=== PATIENT | male | born 1935 | race Caucasian/White ===

== ENCOUNTER 2016-10-07 20:49 | Inpatient (IN) | payer MEDICARE, OTHER ==
--- NOTE | 2016-10-07 21:23 | EDM.PDOC ---
ED HPI GENERAL MEDICAL PROBLEM - General Chief Complaint: General Stated Complaint: CARROLL FEEL SICK [id number] Time Seen by Provider: 10/07/16 21:19 Source of Information: Reports: Patient, Family History Limitations: Reports: No limitations - History of Present Illness INITIAL COMMENTS - FREE TEXT/NARRATIVE: 81 yo white male c/o weakness and coughing blood for last 2-3 months. Also, decreased appetite for 2 weeks and weight loss of approx. 25 pounds since June 2016. Pt. seen by his PCP and had Chest CT on 09/29/2016 -abnormal ( Multilobar infiltrates) and pt. to f/u with Pulmonary Onset: gradual Onset Date: 07/03/16 Onset Time: 12:00 Duration: Week(s):, Getting worse Location: Reports: generalized Severity: moderate Worsens with: Reports: Movement Associated Symptoms: Reports: cough (with blood loss) - Related Data Allergies Allergy/AdvReac Type Severity Reaction Status Date / Time No Known Allergies Allergy Verified 10/07/16 21:19 Home Meds: Home Meds Apixaban [Eliquis] 5 mg PO BID 07/01/16 [History] Aspirin [Halfprin] 81 mg PO BRK 07/01/16 [History] Metoprolol Tartrate [Lopressor] 25 mg PO Q12HR 07/01/16 [History] Multivitamins [Tab-A-Alex] 1 tab PO DAILY 07/01/16 [History] Past Medical History HEENT History: Reports: Cataract Cardiovascular History: Reports: Afib Respiratory History: Reports: None Gastrointestinal History: Reports: Bowel obstruction Genitourinary History: Reports: Renal calculus Musculoskeletal History: Reports: Osteoarthritis Other Musculoskeletal History: right knee - Infectious Disease History Infectious Disease History: Reports: Measles - Past Surgical History HEENT Surgical History: Reports: Cataract surgery Other HEENT Surgeries/Procedures: both eyes Cardiovascular Surgical History: Reports: None Respiratory Surgical History: Reports: None GI Surgical History: Reports: Appendectomy Other GI Surgeries/Procedures: when was a child Male Surgical History: Reports: None Musculoskeletal Surgical History: Reports: Amputation, Other (see below) Other Musculoskeletal Surgeries/Procedures:: right little toe, osteomyelittis Social & Family History - Family History Family Medical History: Noncontributory - Tobacco Use Smoking Status *Q: Former Smoker Years of Tobacco use: 30 Packs/Tins Daily: 1 Used Tobacco, but Quit: Yes Month Tobacco Last Used: August Second Hand Smoke Exposure: No - Caffeine Use Caffeine Use: Reports: Coffee - Recreational Drug Use Recreational Drug Use: No ED ROS GENERAL - Review of Systems Review Of Systems: See Below Constitutional: Reports: weakness, decreased appetite, weight loss (25 pounds since June 2016) HEENT: Reports: No symptoms Respiratory: Reports: Cough, Hemoptysis Cardiovascular: Reports: No symptoms Endocrine: Reports: no symptoms GI/Abdominal: Reports: No symptoms : Reports: no symptoms Musculoskeletal: Reports: no symptoms Skin: Reports: no symptoms Neurological: Reports: No Symptoms Psychiatric: Reports: No symptoms Hematologic/Lymphatic: Reports: no symptoms Immunologic: Reports: no symptoms ED EXAM, GENERAL - Physical Exam Exam: See Below Exam Limited By: No limitations General Appearance: alert, no apparent distress Eye Exam: bilateral eye: PERRL Ears: normal external exam Nose: normal inspection Throat/Mouth: Normal inspection Head: atraumatic Neck: normal inspection Respiratory/Chest: no respiratory distress, lungs clear, normal breath sounds Cardiovascular: normal peripheral pulses, regular rate, rhythm, no edema Peripheral Pulses: 2+: femoral (L), femoral (R) GI/Abdominal: normal bowel sounds, soft, non tender, no organomegaly (Male) Exam: No hernia Back Exam: normal inspection, full range of motion Extremities: normal inspection, normal range of motion Neurological: alert, oriented, CN II-XII intact, normal cognition Psychiatric: normal affect Skin Exam: Warm, Dry, Intact Lymphatic: no adenopathy Course - Vital Signs Last Recorded V/S: Last Vital Signs Temp 36.9 C 10/07/16 21:19 Pulse 30 L 10/07/16 21:19 Resp 18 10/07/16 21:19 BP 82/46 L 10/07/16 21:19 Pulse Ox 94 L 10/07/16 21:19 - Orders/Labs/Meds Orders: Active Orders 24 hr Category Date Time Status UA W/MICROSCOPIC [URIN] Stat Lab 10/07/16 21:17 Uncollected Sodium Chloride 0.9% [Normal Saline] 1,000 ml Med 10/07/16 21:30 Active IV ASDIRECTED Medication Orders Sodium Chloride (Normal Saline) 1,000 mls @ 150 mls/hr IV ASDIRECTED DANYA Last Admin: 10/07/16 21:36 Dose: 150 mls/hr Labs: Laboratory Tests 10/07/16 10/07/16 Range/Units 21:25 21:25 WBC 12.9 H (5.0-10.0) 10^3/uL RBC 2.54 L (4.6-6.2) 10^6/uL Hgb 8.4 L (14.0-18.0) g/dL Hct 28.8 L (40.0-54.0) % MCV 113.4 H (80-100) fL MCH 33.1 (27.0-34.0) pg MCHC 29.2 L (33.0-35.0) g/dL Plt Count 368 (150-450) 10^3/uL Neut % (Auto) 82.6 H (42.2-75.2) % Lymph % (Auto) 11.2 L (20.5-50.1) % O'Brien % (Auto) 4.3 (2-8) % Eos % (Auto) 0.9 L (1.0-3.0) % Baso % (Auto) 1.0 (0.0-1.0) % Add Manual Diff Yes Immature Gran # 8 Absolute Seg Neuts 40 Band Neutrophils # 33 Lymphocytes # (Manual) 15 Monocytes # (Manual) 3 Eosinophils # (Manual) 1 Basophils # (Manual) 0 Poikilocytosis 1+ slight Sodium 139 (135-145) mmol/L Potassium 4.1 (3.6-5.0) mmol/L Chloride 109 (101-111) mmol/L Carbon Dioxide 18.0 L (21.0-31.0) mmol/L Anion Gap 16.1 BUN 29 H (7-18) mg/dL Creatinine 2.1 H (0.6-1.3) mg/dL Est Cr Clr Drug Dosing 33.87 mL/min Estimated GFR (MDRD) 30 BUN/Creatinine Ratio 13.80 Glucose 120 H (74-105) mg/dL Calcium 8.7 (8.4-10.2) mg/dl Total Bilirubin 2.1 H (0.2-1.0) mg/dL AST 28 (10-42) IU/L ALT 19 (10-60) IU/L Alkaline Phosphatase 287 H (42-121) IU/L Total Protein 7.8 (6.7-8.2) g/dl Albumin 3.5 (3.2-5.5) g/dl Globulin 4.3 Albumin/Globulin Ratio 0.81 Meds: Medications Generic Name Dose Route Start Last Admin Trade Name Zee PRN Reason Stop Dose Admin Sodium Chloride 1,000 mls @ 150 mls/hr 10/07/16 21:30 10/07/16 21:36 Normal Saline IV 150 mls/hr ASDIRECTED DANYA Administration Departure - Departure Time of Disposition: 22:16 (Dr. Crowder) Disposition: Admitted As Inpatient 66 Condition: fair Clinical Impression: Weakness, Renal failure Anemia Qualifiers: Anemia type: unspecified type Qualified Code(s): D64.9 - Anemia, unspecified Pneumonia Qualifiers: Pneumonia type: due to unspecified organism Laterality: right Lung location: lower lobe of lung Qualified Code(s): J18.1 - Lobar pneumonia, unspecified organism - My Orders Last 24 Hours: My Active Orders 10/07/16 21:17 UA W/MICROSCOPIC [URIN] Stat 10/07/16 21:30 Sodium Chloride 0.9% [Normal Saline] 1,000 ml IV ASDIRECTED - Assessment/Plan Last 24 Hours: My Active Orders 10/07/16 21:17 UA W/MICROSCOPIC [URIN] Stat 10/07/16 21:30 Sodium Chloride 0.9% [Normal Saline] 1,000 ml IV ASDIRECTED
[2016-10-07] MEDS ORDERED: Sodium Chloride 0.9% 1,000 ML IV SCH (21:30)
[2016-10-07] MEDS ORDERED: Levofloxacin/Dextrose 5%-Water 500 MG in Premix Bag 1 BAG IV ONE (22:19)
[2016-10-07] MEDS ORDERED: Albuterol/Ipratropium 3.0-0.5 MG/3 ML Neb Soln NEB ONE (22:19)
--- NOTE | 2016-10-07 22:56 | PCM.HP ---
H&P History of Present Illness - General Date of Service: 10/07/16 Admit Problem/Dx: weakness and family unable to care at home Source of Information: Patient, Family, Old records, Other (Son) History Limitations: Reports: No limitations - History of Present Illness Initial Comments - Free Text/Narative: Mr. Brian is an 81-year-old male with history of atrial fibrillation, on chronic anticoagulation with Eliquis. He was admitted to [facility] in Jun2015 with gangrene of the right fifth toe. He had been having issues with the fifth toe for some time now and it became greater and developed cellulitis of the right foot. He was seen by vascular surgery. ABIs were normal. Because of his history of atrial fibrillation it was thought that he could be having gangrene from an embolic process. 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 Pt has history of smoking for 30 years ( pack/day) and quit for 25 years He follows with [facility] [employer] and had CT chest on 08/3016 for Hemoptysis and showed subtle central right perihilar and peripheral Rt upper Left upper and Rt lower lobe infiltrate ( multilobar Infiltrate) , He also had Peripheral Smear: showed Macrocytin Anemia with Nucleated Erythrocytes, Left shifted neutrophils with 2% blasts, and abnormal plateletes. His Hgb on 09/29/16 was 9.1 g/dl, Plt 376. His renal function from 09/23/16 was reviewed and creatinine was at 1.38 mg/dl Today he was brought into ED by Family because he is feeling too weak and has no appetite and as per family he has been coughing up blood. His Hgb today was at 8.4 g/dl and on 09/29/16 it was 9.1 g/dl . Creatinine today was at 2.1 g/dl and he is acidotic, serum bicarbonate at 18 Onset of Symptoms: Reports: gradual Duration of Symptoms: Reports: Getting worse - Related Data Allergies/Adverse Reactions: Allergies Allergy/AdvReac Type Severity Reaction Status Date / Time No Known Allergies Allergy Verified 10/07/16 21:19 Home Medications: Home Meds Apixaban [Eliquis] 5 mg PO BID 07/01/16 [History] Aspirin [Halfprin] 81 mg PO BRK 07/01/16 [History] Metoprolol Tartrate [Lopressor] 25 mg PO Q12HR 07/01/16 [History] Multivitamins [Tab-A-Alex] 1 tab PO DAILY 07/01/16 [History] Past Medical History HEENT History: Reports: Cataract Cardiovascular History: Reports: Afib Respiratory History: Reports: None Gastrointestinal History: Reports: Bowel obstruction Genitourinary History: Reports: Renal calculus Musculoskeletal History: Reports: Osteoarthritis Other Musculoskeletal History: right knee Neurological History: Reports: None Psychiatric History: Reports: None Hematologic History: Reports: None Immunologic History: Reports: None Oncologic (Cancer) History: Reports: None Dermatologic History: Reports: None - Infectious Disease History Infectious Disease History: Reports: Measles - Past Surgical History HEENT Surgical History: Reports: Cataract surgery Other HEENT Surgeries/Procedures: both eyes Cardiovascular Surgical History: Reports: None Respiratory Surgical History: Reports: None GI Surgical History: Reports: Appendectomy Other GI Surgeries/Procedures: when was a child Male Surgical History: Reports: None Musculoskeletal Surgical History: Reports: Amputation, Other (see below) Other Musculoskeletal Surgeries/Procedures:: right little toe, osteomyelittis Social & Family History - Family History Family Medical History: Noncontributory - Tobacco Use Smoking Status *Q: Former Smoker Years of Tobacco use: 30 Packs/Tins Daily: 1 Used Tobacco, but Quit: Yes Month Tobacco Last Used: August Tobacco Use Comment: wuit 25 years ago Second Hand Smoke Exposure: No - Caffeine Use Caffeine Use: Reports: Coffee - Recreational Drug Use Recreational Drug Use: No H&P Review of Systems - Review of Systems: Review Of Systems: See Below General: Reports: weakness, fatigue, decreased appetite, weight loss. Denies: fever, chills HEENT: Denies: headaches, sinus congestion, sore throat Pulmonary: Reports: Cough, Sputum, Hemoptysis Cardiovascular: Denies: chest pain, palpitations Gastrointestinal: Denies: Abdominal pain, Bloody stool, Diarrhea, Difficulty swallowing, Hematemesis, Nausea, Vomiting Genitourinary: Denies: dysuria, frequency, burning, urgency Musculoskeletal: Reports: back pain. Denies: neck pain, leg pain, foot pain, muscle stiffness Skin: Denies: cyanosis, jaundice, mottled, bruising, pruritis, rash Psychiatric: Denies: depression, anxiety Neurological: Denies: Confusion, Dizziness, Tingling Hematologic/Lymphatic: Reports: anemia. Denies: easy bruising Immunologic: Denies: environmental allergy, seasonal allergy Exam - Exam Exam: See Below - Vital Signs Vital Signs: Last Vital Signs Temp 36.9 C 10/07/16 21:19 Pulse 30 L 10/07/16 21:19 Resp 18 10/07/16 21:19 BP 82/46 L 10/07/16 21:19 Pulse Ox 94 L 10/07/16 21:19 Weight: 92.986 kg - Exam Quality Assessment: DVT prophylaxis. No: supplemental oxygen, urinary catheter , skin breakdown General: alert, oriented, cooperative HEENT: Conjunctiva clear, Mucosa moist & pink, Pupils equal Neck: supple. No: lymphadenopathy, thyromegaly Lungs: Clear to auscultation, Normal respiratory effort. No: Crackles, Wheezing Cardiovascular: irregular rhythm, systolic murmur Abdomen: normal bowel sounds, soft. No: guarding, rigidity, rebound, tenderness (Male) Exam: Deferred Rectal (Males) Exam: Deferred Back Exam: normal inspection, full range of motion Extremities: normal pulses. No: calf tenderness, edema Skin: warm, dry, intact Neurological: cranial nerves intact, reflexes equal bilateral Neuro Extensive - Mental Status: alert, oriented x3, normal mood/affect, normal cognition, memory intact Neuro Extensive - Motor, Sensory, Reflexes: normal gait, normal reflexes Psychiatric: alert, normal affect, normal mood - Patient Data Result Diagrams: 10/07/16 21:25 10/07/16 21:25 *Q Meaningful Use (ADM) - VTE *Q VTE Criteria *Q: - Stroke *Q Stroke Criteria *Q: - AMI *Q AMI Criteria *Q: - Problem List (1) LIV (acute kidney injury) SNOMED Code(s): 82809956 ICD Code: N17.9 - ACUTE KIDNEY FAILURE, UNSPECIFIED Status: Acute Current Visit: Yes (2) Metabolic acidosis SNOMED Code(s): 94924098 ICD Code: E87.2 - ACIDOSIS Status: Acute Current Visit: Yes (3) Anemia SNOMED Code(s): 817276605 ICD Code: D64.9 - ANEMIA, UNSPECIFIED Status: Acute Current Visit: Yes Qualifiers: Anemia type: unspecified type Qualified Code(s): D64.9 - Anemia, unspecified (4) Pneumonia SNOMED Code(s): 540832387 ICD Code: J18.9 - PNEUMONIA, UNSPECIFIED ORGANISM Status: Acute Current Visit: Yes Qualifiers: Pneumonia type: due to unspecified organism Laterality: right Lung location: lower lobe of lung Qualified Code(s): J18.1 - Lobar pneumonia, unspecified organism (5) Weakness SNOMED Code(s): 12217892 ICD Code: R53.1 - WEAKNESS Status: Acute Current Visit: Yes (6) Hemoptysis SNOMED Code(s): 94630558 ICD Code: R04.2 - HEMOPTYSIS Status: Acute Current Visit: Yes (7) A-fib SNOMED Code(s): 86008327 ICD Code: I48.91 - UNSPECIFIED ATRIAL FIBRILLATION Status: Acute Current Visit: Yes Problem List Initiated/Reviewed/Updated: Yes Orders Last 24hrs: Medication Orders Sodium Chloride (Normal Saline) 1,000 mls @ 150 mls/hr IV ASDIRECTED DANYA Last Admin: 10/07/16 21:36 Dose: 150 mls/hr Levofloxacin/Dextrose 500 mg/ (Premix) 100 mls @ 100 mls/hr IV ONETIME ONE Stop: 10/07/16 23:18 Assessment/Plan Comment:: This is a 81 Y/O M admitted with Weakness, Poor appetite, LIV and Anemia as well as Hemoptysis 1. Weakness: The etiology is not clear, He had chest CT that showed Multilobar Infiltrate and also he has poor appetite -Will continue NS at 50 ml/hr -Will get B/C -He has received Levofloxacin in ED -Will start Zosyn 3.375 mg 2. Likely Multilobar Pneumonia: It was noted in chest CT but XCR done today showed no Infiltrate -Will follow B/C -Will start him on Zosyn and Ciprofloxacin 3. Hemoptysis: Pt has history of smoking and CT chest ( 09/29/16) Multilobar Infiltrate ( ?infract) -Will continue fluids and Abx -If he continue to have this blood tinged sputum then he may need to be transferred to higher level of care center, He may need Bronchoscopy 4. A-Fib: Pt has history of chronic a-fib and he is on eloquis and is eloquis causing the Hemoptysis Vs the ?infract -Will continue anticoagulation 5. Anemia : This is chronic and is dropping, he was supposed to see Oncology at [place] -Will transfuse if Hgb drops below 8 g/dl -CBC in AM 6. GI prophylaxis: will continue Protonix 40 mg daily 7. LIV: This is likely from Dehydration from poor oral intake and relative hypotension -Will continue NS IV at 50 ml/hr -BMP in AM 8. Hypertension: BP acceptable continue Metoprolol at 25 mg 2 times a day 9. DVT prophylaxis: Continue Eloquis 10. Code Status: Pt wished to be Full Code
[2016-10-07] MEDS ORDERED: Acetaminophen 325 MG Tab PO PRN (23:39)
[2016-10-07] MEDS ORDERED: Aspirin 81 MG Tab.EC PO SCH (23:45)
[2016-10-08] MEDS: Piperacillin/Tazobactam 3.375 GM in Sodium Chloride 0.9% 100 ML IV SCH ×3 (00:18→11:55)
[2016-10-08] MEDS ORDERED: Pantoprazole 40 MG Tab.CR PO SCH (06:00)
[2016-10-08] MEDS: Metoprolol Tartrate 25 MG Tab PO SCH ×2 (07:44→11:28)
[2016-10-08] MEDS ORDERED: Aspirin 81 MG Tab.EC PO SCH (08:00)
[2016-10-08] MEDS ORDERED: Enoxaparin 40 MG/0.4 ML Syringe SUBCUT SCH (09:00)
[2016-10-08] MEDS ORDERED: Ciprofloxacin in D5W 400 MG in Premix Bag 1 BAG IV SCH ×2 (09:00)
[2016-10-08] MEDS ORDERED: Multivitamins,Therapeutic Tab PO SCH (09:00)
[2016-10-08] MEDS ORDERED: Furosemide 40 MG/4 ML VIAL IVPUSH ONE (10:00)
--- NOTE | 2016-10-08 10:54 | PCM.DCSUM1 ---
Discharge Summary - Hospital Course Free Text/Narrative:: Pt still having Blood tinged sputum and Hgb is dropping, getting 1 unit of pRBC. He is having this Hemoptysis for the last 2 weeks with progresive decrease in Hgb HPI Initial Comments: Mr. Brian is an 81-year-old male with history of atrial fibrillation, on chronic anticoagulation with Eliquis. He was admitted to in 2015 with gangrene of the right fifth toe. He had been having issues with the fifth toe for some time now and it became greater and developed cellulitis of the right foot. He was seen by vascular surgery. ABIs were normal. Because of his history of atrial fibrillation it was thought that he could be having gangrene from an embolic process. 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 Pt has history of smoking for 30 years ( pack/day) and quit for 25 years He follows with Shara Meier NP and had CT chest on 09/29/16 for Hemoptysis and showed subtle central right perihilar and peripheral Rt upper Left upper and Rt lower lobe infiltrate ( multilobar Infiltrate, ? infract) , He also had Peripheral Smear: showed Macrocytic Anemia with Nucleated Erythrocytes, Left shifted neutrophils with 2% blasts, and abnormal platelets. His Hgb on 09/29/16 was 9.1 g/dl, Plt 376. His renal function from 09/23/16 was reviewed and creatinine was at 1.38 mg/dl He was brought into ED on 10/07/16 by Family because he is feeling too weak and has no appetite and as per family he has been coughing up blood and has lost 10- 15 lbs in 2-3 weeks . His Hgb today ( 10/07/16) was at 8.4 g/dl and on 09/29/16 it was 9.1 g/dl . Creatinine today ( 10/07/16) was at 2.1 g/dl and he is acidotic , serum bicarbonate at 18. Creatinine today ( 10/08/16) was 2.3 mg/dl, and Hgb 7.5 g/dl ( will get 1 unit of blood today) Brief History: Pt will be transfered to for further evaluation Hemoptysis ( continuing for 2 weeks) - Discharge Data Discharge Date: 10/08/16 Discharge Disposition: DC/Tfer to Acute Hospital 02 Condition: Fair - Discharge Diagnosis/Problem(s) (1) LIV (acute kidney injury) SNOMED Code(s): 74817496 ICD Code: N17.9 - ACUTE KIDNEY FAILURE, UNSPECIFIED Status: Acute Current Visit: Yes (2) Metabolic acidosis SNOMED Code(s): 41133483 ICD Code: E87.2 - ACIDOSIS Status: Acute Current Visit: Yes (3) Anemia SNOMED Code(s): 137985765 ICD Code: D64.9 - ANEMIA, UNSPECIFIED Status: Acute Current Visit: Yes Qualifiers: Anemia type: unspecified type Qualified Code(s): D64.9 - Anemia, unspecified (4) Pneumonia SNOMED Code(s): 463519992 ICD Code: J18.9 - PNEUMONIA, UNSPECIFIED ORGANISM Status: Acute Current Visit: Yes Qualifiers: Pneumonia type: due to unspecified organism Laterality: right Lung location: lower lobe of lung Qualified Code(s): J18.1 - Lobar pneumonia, unspecified organism (5) Weakness SNOMED Code(s): 31196650 ICD Code: R53.1 - WEAKNESS Status: Acute Current Visit: Yes (6) Hemoptysis SNOMED Code(s): 25989198 ICD Code: R04.2 - HEMOPTYSIS Status: Acute Current Visit: Yes (7) A-fib SNOMED Code(s): 15364442 ICD Code: I48.91 - UNSPECIFIED ATRIAL FIBRILLATION Status: Acute Current Visit: Yes Qualifiers: Atrial fibrillation type: chronic Qualified Code(s): I48.2 - Chronic atrial fibrillation - Patient Summary/Data Hospital Course: Pt was admitted for weakness and poor appetite with Likely Pneuminia ( but CXR showed no infiltrate or focal consolidation). started on Zosyn and Cipro and Eloquis was placed on hold. He is still continue to have blood tinged sputum and hgb is dropping progressively. I discussed with pt about transfer for continuing Hemoptysis ( 2 weeks) and progressive drop in Hgb. He will need more evaluation by skein bleacher. This pt has history of >30 yrs of smoking ( 1 pack /day), quit smoking 25 yrs ago. He has history of chronic A-Fib and was on Eloquis, which was placed on hold after the admission. - Patient Instructions Diet: Regular Diet as Tolerated Activity: As Tolerated - Discharge Plan Home Medications: Home Meds Apixaban [Eliquis] 5 mg PO BID 07/01/16 [History] Aspirin [Halfprin] 81 mg PO BRK 07/01/16 [History] Metoprolol Tartrate [Lopressor] 25 mg PO Q12HR 07/01/16 [History] Multivitamins [Tab-A-Alex] 1 tab PO DAILY 07/01/16 [History] Forms: ED Department Discharge Referrals: PCP,None [Primary Care Provider] - - General Info Date of Service: 10/08/16 Admission Dx/Problem (Free Text: weakness and family unable to care at home, Hemoptysis for 2 weeks, progressive weight loss and poor appetite Functional Status: Reports: pain controlled, tolerating diet, ambulating, urinating - Review of Systems General: Reports: Weakness, Appetite (poor). Denies: Chills HEENT: Denies: headaches, sinus congestion, sore throat Pulmonary: Reports: cough, sputum, hemoptysis. Denies: shortness of breath, wheezing Cardiovascular: Denies: Chest Pain, Lightheadedness Gastrointestinal: Reports: Decreased appetite. Denies: Abdominal pain, Diarrhea , Nausea, Vomiting Genitourinary: Denies: dysuria, frequency, burning Musculoskeletal: Reports: back pain. Denies: shoulder pain, joint pain, joint swelling Skin: Denies: cyanosis, jaundice, diaphoresis, bruising, pruritis, rash Neurological: Reports: Weakness. Denies: Confusion, Headache Psychiatric: Denies: confusion, anxiety - Patient Data Vitals - Most Recent: Last Vital Signs Temp 37.1 C 10/08/16 09:36 Pulse 106 H 10/08/16 09:36 Resp 20 10/08/16 09:36 BP 97/63 10/08/16 09:36 Pulse Ox 98 10/08/16 09:14 Weight - Most Recent: 92.986 kg I&O - Last 24 hours: Intake & Output 10/07/16 10/08/16 10/08/16 22:59 06:59 14:59 Intake Total 649 0 Output Total 150 Balance 499 0 Lab Results - Last 24 hrs: Laboratory Results - last 24 hr 04/07/17 04/08/17 04/08/17 Range/Units 23:15 01:00 05:55 WBC 11.8 H (5.0-10.0) 10^3/uL RBC 2.24 L (4.6-6.2) 10^6/uL Hgb 7.5 L (14.0-18.0) g/dL Hct 26.2 L (40.0-54.0) % MCV 117.0 H (80-100) fL MCH 33.5 (27.0-34.0) pg MCHC 28.6 L (33.0-35.0) g/dL Plt Count 326 (150-450) 10^3/uL Neut % (Auto) 84.4 H (42.2-75.2) % Lymph % (Auto) 9.5 L (20.5-50.1) % Jenkins % (Auto) 4.5 (2-8) % Eos % (Auto) 0.8 L (1.0-3.0) % Baso % (Auto) 0.8 (0.0-1.0) % Add Manual Diff Yes Neutrophils % (Manual) 67 % Lymphocytes % (Manual) 26 % Monocytes % (Manual) 7 % Sodium (135-145) mmol/L Potassium (3.6-5.0) mmol/L Chloride (101-111) mmol/L Carbon Dioxide (21.0-31.0) mmol/L Anion Gap BUN (7-18) mg/dL Creatinine (0.6-1.3) mg/dL Est Cr Clr Drug Dosing mL/min Estimated GFR (MDRD) Glucose (74-105) mg/dL Lactic Acid 1.4 (0.5-2.2) mmol/L Calcium (8.4-10.2) mg/dl Urine Color Dark yellow (YELLOW) Urine Appearance Slightly cloudy (CLEAR) Urine pH 5.0 (5.0-9.0) Ur Specific [place] 1.025 (1.005-1.030) Urine Protein 100 H (NEGATIVE) Urine Glucose (UA) Negative (NEGATIVE) Urine Ketones 15 H (NEGATIVE) Urine Occult Blood Moderate H (NEGATIVE) Urine Nitrite Negative (NEGATIVE) Urine Bilirubin Moderate H (NEGATIVE) Urine Urobilinogen 0.2 (0.2-1.0) mg/dL Ur Leukocyte Esterase Negative (NEGATIVE) Urine RBC 5-10 H /HPF Urine WBC 5-10 H (0-5/HPF) /HPF Ur Epithelial Cells Moderate H /HPF Calcium Oxalate Crystal Moderate H /HPF Amorphous Sediment Few (0/HPF) /HPF Urine Bacteria Moderate H (0-FEW/HPF) /HPF Granular Casts Few /LPF Blood Type Gel Antibody Screen Crossmatch 10/08/16 10/08/16 Range/Units 05:55 05:55 WBC (5.0-10.0) 10^3/uL RBC (4.6-6.2) 10^6/uL Hgb (14.0-18.0) g/dL Hct (40.0-54.0) % MCV (80-100) fL MCH (27.0-34.0) pg MCHC (33.0-35.0) g/dL Plt Count (150-450) 10^3/uL Neut % (Auto) (42.2-75.2) % Lymph % (Auto) (20.5-50.1) % Jenkins % (Auto) (2-8) % Eos % (Auto) (1.0-3.0) % Baso % (Auto) (0.0-1.0) % Add Manual Diff Neutrophils % (Manual) % Lymphocytes % (Manual) % Monocytes % (Manual) % Sodium 140 (135-145) mmol/L Potassium 4.2 (3.6-5.0) mmol/L Chloride 110 (101-111) mmol/L Carbon Dioxide 19.0 L (21.0-31.0) mmol/L Anion Gap 15.2 BUN 30 H (7-18) mg/dL Creatinine 2.3 H (0.6-1.3) mg/dL Est Cr Clr Drug Dosing 30.93 mL/min Estimated GFR (MDRD) 27 Glucose 110 H (74-105) mg/dL Lactic Acid (0.5-2.2) mmol/L Calcium 8.3 L (8.4-10.2) mg/dl Urine Color (YELLOW) Urine Appearance (CLEAR) Urine pH (5.0-9.0) Ur Specific [place] (1.005-1.030) Urine Protein (NEGATIVE) Urine Glucose (UA) (NEGATIVE) Urine Ketones (NEGATIVE) Urine Occult Blood (NEGATIVE) Urine Nitrite (NEGATIVE) Urine Bilirubin (NEGATIVE) Urine Urobilinogen (0.2-1.0) mg/dL Ur Leukocyte Esterase (NEGATIVE) Urine RBC /HPF Urine WBC (0-5/HPF) /HPF Ur Epithelial Cells /HPF Calcium Oxalate Crystal /HPF Amorphous Sediment (0/HPF) /HPF Urine Bacteria (0-FEW/HPF) /HPF Granular Casts /LPF Blood Type O POSITIVE Gel Antibody Screen Negative Crossmatch See Detail HUSSAIN Results - Last 24 hrs: Microbiology 10/07/16 23:20 Anaerobic Blood Culture - Final Blood Med Orders - Current: Current Medications Acetaminophen (Tylenol) 650 mg PO Q4H PRN PRN Reason: Pain (mild 1-3 )/fever Aspirin (Halfprin) 81 mg PO BRK [facility] Enoxaparin Sodium (Lovenox) 40 mg SUBCUT DAILY [facility] Sodium Chloride (Normal Saline) 1,000 mls @ 100 mls/hr IV ASDIRECTED [facility] Last Admin: 10/07/16 21:36 Dose: 150 mls/hr Piperacillin Sod/Tazobactam (Sod 3.375 gm/ Sodium Chloride) 100 mls @ 200 mls/ hr IV Q6H [facility] Last Admin: 10/08/16 05:31 Dose: 200 mls/hr Ciprofloxacin/Dextrose 400 mg/ (Premix) 200 mls @ 200 mls/hr IV Q12HR [facility] Metoprolol Tartrate (Lopressor) 25 mg PO Q12HR [facility] Last Admin: 10/08/16 07:44 Dose: 25 mg Multivitamins (Thera) 1 each PO DAILY [facility] Pantoprazole Sodium (Protonix) 40 mg PO ACBREAKFAST [facility] Last Admin: 10/08/16 05:34 Dose: 40 mg Discontinued Medications Albuterol/Ipratropium (Duoneb 3.0-0.5 Mg/3 Ml) 3 ml NEB ONETIME ONE Stop: 10/07/16 22:20 Last Admin: 10/07/16 22:47 Dose: 3 ml Aspirin (Halfprin) 81 mg PO BRK [facility] Last Admin: 10/08/16 05:57 Dose: Not Given Furosemide (Lasix) 40 mg IVPUSH NOW ONE Stop: 10/08/16 10:01 Levofloxacin/Dextrose 500 mg/ (Premix) 100 mls @ 100 mls/hr IV ONETIME ONE Stop: 10/07/16 23:18 Last Admin: 04/07/17 23:14 Dose: 100 mls/hr - Exam Quality Assessment: Reports: DVT prophylaxis. Denies: supplemental oxygen, urine catheter General: Reports: alert, oriented, cooperative, no acute distress HEENT: Reports: Pupils equal, Mucous membr. moist/pink Neck: Reports: supple, no thyromegaly. Denies: lymphadenopathy Lungs: Reports: Clear to auscultation, Normal respiratory effort. Denies: Crackles, Wheezing Cardiovascular: Reports: Irregular Rhythm, Tachycardia, Murmurs Abdomen: Reports: bowel sounds present, soft, no tenderness, no distension (Male) Exam: Deferred Rectal (Males) Exam: Deferred Back Exam: Reports: normal inspection Extremities: Reports: no edema, no clubbing, no calf tenderness Skin: Reports: warm, dry, intact Neurological: Reports: no new focal deficit Psy/Mental Status: Reports: alert, normal affect, normal mood *Q Meaningful Use (DIS) - VTE *Q VTE Criteria *Q: - Stroke *Q Stroke Criteria *Q: - AMI *Q AMI Criteria *Q:
[2016-10-08 12:33] VITALS: BP 110/85
[2016-10-08] MEDS ORDERED: Furosemide 40 MG/4 ML VIAL ONE (13:30)
== END 2016-10-08 13:35 | DRG 194 ==
LOC: DL.ED 20:49 → DL.MS 22:22 → UNDOADMIN 22:22 → DL.MS 23:45 → UNDODISIN 10-08 13:35
PROVIDERS: ADMIT Internal Medicine Nephrology; ATTEND Internal Medicine Nephrology
PROC: 30253N1 (ICD-10-PCS; principal; 2016-10-08)
DX: J18.9 Pneumonia, unspecified organism (principal); R04.2 Hemoptysis; N17.9 Acute kidney failure, unspecified; E87.2 Acidosis; I48.2 Chronic atrial fibrillation; Z79.01 Long term (current) use of anticoagulants; Z87.891 Personal history of nicotine dependence; Z89.421 Acquired absence of other right toe(s); D64.9 Anemia, unspecified; M19.90 Unspecified osteoarthritis, unspecified site; I10 Essential (primary) hypertension
CPT/HCPCS: 36415; 71020; 80053; 85025; 96365; 99284; J7030; 36430; 80048; 81001; 83605; 86850; 86900; 86901; 86920; 86922; 87040; 96366; 99285; A9270-GY; J0744; J1650; J1940; J1956; J2543; J7050; P9016

== ENCOUNTER 2016-10-28 10:25 | Inpatient (IN) | payer MEDICARE, OTHER ==
[2016-10-28] MEDS ORDERED: Bisacodyl 10 MG Supp RECTAL PRN (14:08)
[2016-10-28] MEDS ORDERED: Acetaminophen 325 MG Tab PO PRN (14:08)
[2016-10-28] MEDS ORDERED: Magnesium Hydroxide 400 MG/5 ML Susp 30 ML Cup PO PRN (14:08)
[2016-10-28] MEDS ORDERED: Acetaminophen 500 MG Tab PO PRN (14:30)
[2016-10-28] MEDS: Aspirin 81 MG Tab.EC PO SCH (15:27)
[2016-10-28] MEDS ORDERED: Metoprolol Tartrate 25 MG Tab PO SCH (21:00)
[2016-10-28] MEDS: Metoprolol Tartrate 25 MG Tab PO SCH (21:00)
[2016-10-28] MEDS: Tolterodine 2 MG Tab PO SCH (21:03)
[2016-10-28] MEDS: Tamsulosin 0.4 MG Cap.ER PO SCH (21:04)
[2016-10-29] MEDS: Pantoprazole 40 MG Tab.CR PO SCH (06:17)
[2016-10-29] MEDS: Aspirin 81 MG Tab.EC PO SCH (09:51)
[2016-10-29] MEDS: Levofloxacin 500 MG Tab PO SCH (09:53)
[2016-10-29] MEDS: Metoprolol Tartrate 25 MG Tab PO SCH ×2 (09:53→21:24)
[2016-10-29] MEDS: Digoxin 250 MCG Tab PO SCH (09:54)
[2016-10-29] MEDS: Multivitamins,Therapeutic Tab PO SCH (09:55)
[2016-10-29] MEDS: Tolterodine 2 MG Tab PO SCH ×2 (10:18→21:24)
[2016-10-29] MEDS: Ferrous Sulfate 325 MG Tab PO SCH (12:41)
[2016-10-29] MEDS: Tamsulosin 0.4 MG Cap.ER PO SCH (21:23)
[2016-10-29] MEDS: Nystatin Crm 15 GM Tube TOP SCH (21:25)
[2016-10-30] MEDS: Pantoprazole 40 MG Tab.CR PO SCH (06:08)
[2016-10-30] MEDS: Aspirin 81 MG Tab.EC PO SCH (09:32)
[2016-10-30] MEDS: Metoprolol Tartrate 25 MG Tab PO SCH ×2 (09:33→21:31)
[2016-10-30] MEDS: Digoxin 250 MCG Tab PO SCH (09:34)
[2016-10-30] MEDS: Multivitamins,Therapeutic Tab PO SCH (09:34)
[2016-10-30] MEDS: Tolterodine 2 MG Tab PO SCH ×2 (09:34→21:30)
[2016-10-30] MEDS: Nystatin Crm 15 GM Tube TOP SCH ×2 (09:37→21:32)
[2016-10-30] MEDS: Ferrous Sulfate 325 MG Tab PO SCH (12:54)
[2016-10-30] MEDS: Tamsulosin 0.4 MG Cap.ER PO SCH (21:29)
[2016-10-31] MEDS: Pantoprazole 40 MG Tab.CR PO SCH (06:16)
--- NOTE | 2016-10-31 08:02 | HP ---
REASON FOR ADMISSION TO SWING BED: Generalized weakness following recent hospital admission. He will work with Physical and Occupational Therapy for strengthening prior to discharge home and continuation of medical treatment for recently diagnosed medical problems. HISTORY OF PRESENT ILLNESS: Mr. Brian is an 81-year-old gentleman who has a history of chronic atrial fibrillation. He had been on Eliquis for anticoagulation. He developed hemoptysis at the end of August and had a CT scan of the chest performed without contrast. There were multilobar changes, which raised the question of infiltrates versus infarcts. There is no sign of any primary or metastatic disease. He was transferred to the hospital on 10/07 and was admitted overnight. He was found to have a hemoglobin of 8.4, which decreased to 7.5 the next day. He was transfused 1 unit of packed red blood cells (O positive, antibody negative). He was then transferred to [place]. In [place], he received 4 units of packed red blood cells. While in [place], he underwent bronchoscopy with bronchial washings. The cytology from these washings were negative for any pulmonary malignancy. His Eliquis had been stopped. It was felt that the hemoptysis and the bleeding seen within the lungs was due to the use of the Eliquis. His anemia has been extensively worked up, finally resulting in a bone marrow biopsy on 10/24/2016. 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 He also has a leukocytosis with a left shift and blasts. 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 This led to the bone marrow biopsy. Samples have been sent out to the [facility] to differentiate between the myelodysplasia and the myeloproliferative diagnoses. He also had another complication, which was a thrombosis leading to a gangrenous right 5th toe in 06/2016. The toe was amputated. He was on Eliquis at that time as well. It should also be noted that he has had a 30-pound weight loss in the last few months. Following all of the above, he is understandably weak and decision was made for an admission to swing bed for recovery and to work with Physical and Occupational Therapy. He will be following up with Oncology next week for the results of the bone marrow biopsy. PAST MEDICAL HISTORY: Chronic atrial fibrillation, post-traumatic osteoarthritis of the right knee, Hemoptysis in 08/2016 with negative pulmonary cell cytology. Hydronephrosis with urinary obstruction due to renal calculus. Macrocytic anemia. Leukocytosis. Chronic kidney disease, stage 3-4. PAST SURGICAL HISTORY: Amputation of right 5th toe in 06/2016. Bronchoalveolar lavage with biopsies in 10/2016. Bone marrow biopsy on 10/24/2016. REVIEW OF SYSTEMS: He has had an approximately 30-pound weight loss. His maximum weight several months ago was 225 pounds and his current weight is 190 pounds. He has chronic atrial fibrillation. No history of stroke or myocardial infarction. At some point, he was thought to have possible dysphagia and underwent endoscopy, but is not currently on any type of modified diet. He denied any chest pain or shortness of breath. His appetite has become quite poor. He is moving his bowels and states he has bowel movement about every 3 days. No issues with voiding. He is off anticoagulation at this time. In the past, he also had impacted ureteral stones on the right and temporarily had a ureteral stent placed. He is debilitated and weak. He has poor endurance. Prior to this, he was quite active. No recent falls or injuries. He was found to have a possible pancreatic mass. This has been now diagnosed as a benign cyst. A CA 19.9 was performed, it was normal and follow up is planned in 9 months. CURRENT MEDICATIONS: Reviewed and reconciled. His usual medications will be continued. He is completing a course of levofloxacin and has another 3 doses scheduled. He gets a single dose of 500 mg every 48 hours because of his reduced renal function. ALLERGIES: No known allergies. He is a pleasant gentleman, awake alert and oriented. He had many questions regarding his illness. I had returned to see him following the admission, and at that time, he had questions regarding his labs that had led up to this time and he asked to review the findings of the labs and discussed the significance of the potential diagnoses. He asked many questions and these were answered. PHYSICAL EXAMINATION: General: He is seated in his recliner. He is awake, alert, oriented. He denies any problems or concerns. He denies any pain. Vital Signs: Initial blood pressure at time of admission was 89/58 on the left and 91/61 on the right. These improved later to 125/65, pulse was 70 and regular, respiratory rate 20 and unlabored, oxygen saturation 98% on room air. He is afebrile. Weight 194 pounds 12.8 ounces, height 6 feet 4 inches. He previously weighed 225 pounds before July. HEENT: Unremarkable. ENT was clear. No JVDs or bruits. No adenopathy. Chest: Showed clear bilateral breath sounds. Heart: Showed regular rate and rhythm. Abdomen: Soft and benign. Extremities: Showed the calves to be soft and nontender. Neurologic: He was intact. LABORATORY DATA: Labs were ordered for the morning following admission to recheck his hemoglobin hematocrit and these were stable at 10.1 and 33.7. Creatinine was 1.8 and GFR is slightly improved at 36. His last hemoglobin prior to transfer had been 10.7 and 34.6 on 10/28. IMPRESSION: An 81-year-old gentleman who has had multiple medical problems recently and is now debilitated with increased weakness. He has been admitted to swing bed as part of his recovery from the prolonged illness. He will work with Physical and Occupational Therapy for strengthening and improvement in his gait prior to discharge home. He currently is undergoing workup based on recent studies, which suggest a myeloproliferative versus a myelodysplastic disorder. Results of that workup are still pending. PLAN: 1. We will continue the present medications and management. 2. He will continue and complete 3 more doses of oral Levaquin. 3. He is placed on a regular diet. 4. He was referred to Physical and Occupational therapy for his generalized weakness. 5. Because of his recent complications with anticoagulation, he is not on heparin and is no longer on Eliquis or warfarin. He continues on aspirin 81 mg daily for antiplatelet activity. 6. CODE STATUS: Full code. CONDITION AT THE TIME OF ADMISSION: Hemodynamically and neurologically stable. [facility] /[id number] JENNIFER
[2016-10-31] MEDS: Levofloxacin 500 MG Tab PO SCH (09:07)
[2016-10-31] MEDS: Multivitamins,Therapeutic Tab PO SCH (09:07)
[2016-10-31] MEDS: Tolterodine 2 MG Tab PO SCH ×2 (09:07→21:25)
[2016-10-31] MEDS: Aspirin 81 MG Tab.EC PO SCH (09:07)
[2016-10-31] MEDS: Metoprolol Tartrate 25 MG Tab PO SCH ×2 (09:07→21:20)
[2016-10-31] MEDS: Digoxin 250 MCG Tab PO SCH (09:09)
[2016-10-31] MEDS: Nystatin Crm 15 GM Tube TOP SCH ×2 (09:19→21:25)
[2016-10-31] MEDS: Ferrous Sulfate 325 MG Tab PO SCH (12:51)
[2016-10-31] MEDS: Tamsulosin 0.4 MG Cap.ER PO SCH (21:14)
[2016-11-01] MEDS: Pantoprazole 40 MG Tab.CR PO SCH (06:23)
[2016-11-01] MEDS: Aspirin 81 MG Tab.EC PO SCH (09:10)
[2016-11-01] MEDS: Metoprolol Tartrate 25 MG Tab PO SCH ×2 (09:12→20:29)
[2016-11-01] MEDS: Digoxin 250 MCG Tab PO SCH (09:12)
[2016-11-01] MEDS: Multivitamins,Therapeutic Tab PO SCH (09:12)
[2016-11-01] MEDS: Tolterodine 2 MG Tab PO SCH ×2 (09:13→20:29)
[2016-11-01] MEDS: Nystatin Crm 15 GM Tube TOP SCH ×2 (10:58→20:32)
[2016-11-01] MEDS: Ferrous Sulfate 325 MG Tab PO SCH (12:35)
[2016-11-01] MEDS: Tamsulosin 0.4 MG Cap.ER PO SCH (20:29)
[2016-11-02] MEDS: Pantoprazole 40 MG Tab.CR PO SCH (05:45)
[2016-11-02] MEDS: Multivitamins,Therapeutic Tab PO SCH (09:30)
[2016-11-02] MEDS: Aspirin 81 MG Tab.EC PO SCH (10:30)
[2016-11-02] MEDS: Metoprolol Tartrate 25 MG Tab PO SCH ×2 (10:30→21:25)
[2016-11-02] MEDS: Tolterodine 2 MG Tab PO SCH ×2 (10:32→21:25)
[2016-11-02] MEDS: Levofloxacin 500 MG Tab PO SCH (10:36)
[2016-11-02] MEDS: Digoxin 250 MCG Tab PO SCH (10:36)
[2016-11-02] MEDS: Nystatin Crm 15 GM Tube TOP SCH ×2 (14:05→21:32)
[2016-11-02] MEDS: Ferrous Sulfate 325 MG Tab PO SCH (14:05)
[2016-11-02] MEDS: Tamsulosin 0.4 MG Cap.ER PO SCH (21:25)
[2016-11-03] MEDS: Pantoprazole 40 MG Tab.CR PO SCH (06:01)
[2016-11-03] MEDS: Metoprolol Tartrate 25 MG Tab PO SCH ×2 (08:55→21:33)
[2016-11-03] MEDS: Aspirin 81 MG Tab.EC PO SCH (08:55)
[2016-11-03] MEDS: Multivitamins,Therapeutic Tab PO SCH (08:55)
[2016-11-03] MEDS: Tolterodine 2 MG Tab PO SCH ×2 (08:55→21:33)
[2016-11-03] MEDS: Digoxin 250 MCG Tab PO SCH (08:56)
[2016-11-03] MEDS: Nystatin Crm 15 GM Tube TOP SCH ×2 (09:04→21:34)
[2016-11-03] MEDS: Ferrous Sulfate 325 MG Tab PO SCH (12:41)
[2016-11-03] MEDS: Tamsulosin 0.4 MG Cap.ER PO SCH (21:33)
[2016-11-04] MEDS: Pantoprazole 40 MG Tab.CR PO SCH (06:17)
[2016-11-04] MEDS: Digoxin 250 MCG Tab PO SCH (09:10)
[2016-11-04] MEDS: Aspirin 81 MG Tab.EC PO SCH (09:10)
[2016-11-04] MEDS: Multivitamins,Therapeutic Tab PO SCH (09:10)
[2016-11-04] MEDS: Tolterodine 2 MG Tab PO SCH ×2 (09:11→21:14)
[2016-11-04] MEDS: Metoprolol Tartrate 25 MG Tab PO SCH ×2 (09:11→21:16)
[2016-11-04] MEDS: Nystatin Crm 15 GM Tube TOP SCH ×2 (09:13→21:18)
[2016-11-04] MEDS: Ferrous Sulfate 325 MG Tab PO SCH (12:21)
[2016-11-04] MEDS: Tamsulosin 0.4 MG Cap.ER PO SCH (21:18)
[2016-11-05] MEDS: Pantoprazole 40 MG Tab.CR PO SCH (05:48)
[2016-11-05] MEDS: Digoxin 250 MCG Tab PO SCH (08:40)
[2016-11-05] MEDS: Aspirin 81 MG Tab.EC PO SCH (08:40)
[2016-11-05] MEDS: Multivitamins,Therapeutic Tab PO SCH (08:40)
[2016-11-05] MEDS: Tolterodine 2 MG Tab PO SCH ×2 (08:40→21:48)
[2016-11-05] MEDS: Metoprolol Tartrate 25 MG Tab PO SCH ×2 (08:41→21:48)
[2016-11-05] MEDS: Nystatin Crm 15 GM Tube TOP SCH ×2 (08:43→21:55)
--- NOTE | 2016-11-05 11:47 | PCM.PN ---
- General Info Date of Service: 11/05/16 Admission Dx/Problem (Free Text): weakness, anemia Subjective Update: he is feeling well, getting stronger, No concern for bleeding Eating well, participating in physical therapy - Review of Systems General: Reports: Weakness (improving). Denies: Fever Pulmonary: Denies: shortness of breath Cardiovascular: Denies: Chest Pain Neurological: Denies: Confusion - Patient Data Vitals - most recent: Last Vital Signs Temp 36.8 C 11/05/16 07:42 Pulse 108 H 11/05/16 08:41 Resp 20 11/05/16 07:42 BP 99/66 11/05/16 08:41 Pulse Ox 98 11/05/16 07:42 Weight - most recent: 88.541 kg I&O - last 24 hours: Intake & Output 11/04/16 11/05/16 11/05/16 22:59 06:59 14:59 Intake Total 680 125 Output Total 500 100 Balance 180 25 Med Orders - Current: Current Medications Acetaminophen (Tylenol) 650 mg PO Q4H PRN PRN Reason: Pain (mild 1-3 )/fever Acetaminophen (Tylenol Extra Strength) 500 mg PO Q6H PRN PRN Reason: Pain (mild 1-3) Aspirin (Halfprin) 81 mg PO BRK [facility] Last Admin: 11/05/16 08:40 Dose: 81 mg Bisacodyl (Dulcolax) 10 mg RECTAL DAILY PRN PRN Reason: Constipation Digoxin (Lanoxin) 250 mcg PO DAILY [facility] Last Admin: 11/05/16 08:40 Dose: 250 mcg Ferrous Sulfate (Ferrous Sulfate) 325 mg PO DAILY@1200 [facility] Last Admin: 11/04/16 12:21 Dose: 325 mg Magnesium Hydroxide (Milk Of Magnesia) 30 ml PO DAILY PRN PRN Reason: Constipation Metoprolol Tartrate (Lopressor) 12.5 mg PO BID [facility] Last Admin: 11/05/16 08:41 Dose: 12.5 mg Multivitamins (Thera) 1 each PO DAILY [facility] Last Admin: 11/05/16 08:40 Dose: 1 each Nystatin (Nystatin Crm) 0 gm TOP BID [facility] Last Admin: 11/05/16 08:43 Dose: 1 applic Pantoprazole Sodium (Protonix) 40 mg PO ACBREAKFAST [facility] Last Admin: 11/05/16 05:48 Dose: 40 mg Tamsulosin HCl (Flomax) 0.4 mg PO BEDTIME [facility] Last Admin: 11/04/16 21:18 Dose: 0.4 mg Tolterodine Tartrate (Detrol) 2 mg PO BID [facility] Last Admin: 11/05/16 08:40 Dose: 2 mg Discontinued Medications Levofloxacin (Levaquin) 500 mg PO Q48H [facility] Stop: 11/02/16 09:01 Last Admin: 11/02/16 10:36 Dose: Not Given Metoprolol Tartrate (Lopressor) 25 mg PO BID [facility] - Exam General: alert, oriented Neck: supple Lungs: Normal respiratory effort, Decreased breath sounds Cardiovascular: Irregular Rhythm Abdomen: bowel sounds present, soft, no tenderness, no distension Back Exam: normal inspection Extremities: no edema Neurological: no new focal deficit Psy/Mental Status: alert, normal affect, normal mood - Problem List & Annotations (1) Anemia SNOMED Code(s): 957391537 Code(s): D64.9 - ANEMIA, UNSPECIFIED Status: Acute Current Visit: No Qualifiers: (2) Weakness SNOMED Code(s): 91028606 Code(s): R53.1 - WEAKNESS Status: Acute Current Visit: No - Problem List Review Problem List Initiated/Reviewed/Updated: Yes - Assessment Assessment:: The patient is an 81-year-old gentleman with a history of chronic atrial fibrillation, he had been on Eliquis for anticoagulation. He developed hemoptysis and severe blood loss anemia requiring blood transfusions. Workup in [place] was negative for malignancy. 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 Subsequently the patient was [facility] . Acute blood loss anemia Hemoglobin is a little bit lower than a week ago That is likely due to the elimination of the recent PRBC transfusions Continue iron supplement Recheck hemoglobin in a few days Atrial fibrillation Rate is controlled with digoxin, metoprolol Off anticoagulation because of the recent bleed Continue physical therapy and occupational therapy DVT prophylaxis with aspirin GI prophylaxis with Protonix
[2016-11-05] MEDS: Ferrous Sulfate 325 MG Tab PO SCH (12:54)
[2016-11-05] MEDS: Tamsulosin 0.4 MG Cap.ER PO SCH (22:07)
[2016-11-06] MEDS: Pantoprazole 40 MG Tab.CR PO SCH (06:26)
[2016-11-06] MEDS: Aspirin 81 MG Tab.EC PO SCH (09:17)
[2016-11-06] MEDS: Tolterodine 2 MG Tab PO SCH ×2 (09:17→21:24)
[2016-11-06] MEDS: Multivitamins,Therapeutic Tab PO SCH (09:17)
[2016-11-06] MEDS: Digoxin 250 MCG Tab PO SCH (09:18)
[2016-11-06] MEDS: Metoprolol Tartrate 25 MG Tab PO SCH ×2 (09:18→21:25)
[2016-11-06] MEDS: Nystatin Crm 15 GM Tube TOP SCH ×2 (09:19→21:25)
[2016-11-06] MEDS: Ferrous Sulfate 325 MG Tab PO SCH (12:32)
[2016-11-06] MEDS: Tamsulosin 0.4 MG Cap.ER PO SCH (21:24)
[2016-11-07] MEDS: Pantoprazole 40 MG Tab.CR PO SCH (07:26)
[2016-11-07] MEDS: Aspirin 81 MG Tab.EC PO SCH (07:26)
[2016-11-07] MEDS: Tolterodine 2 MG Tab PO SCH ×2 (09:41→20:57)
[2016-11-07] MEDS: Digoxin 250 MCG Tab PO SCH (09:41)
[2016-11-07] MEDS: Metoprolol Tartrate 25 MG Tab PO SCH ×2 (09:42→20:57)
[2016-11-07] MEDS: Multivitamins,Therapeutic Tab PO SCH (09:43)
[2016-11-07] MEDS: Nystatin Crm 15 GM Tube TOP SCH ×2 (09:44→20:58)
[2016-11-07] MEDS: Ferrous Sulfate 325 MG Tab PO SCH (13:17)
[2016-11-07] MEDS: Tamsulosin 0.4 MG Cap.ER PO SCH (20:57)
[2016-11-08] MEDS: Pantoprazole 40 MG Tab.CR PO SCH (06:32)
[2016-11-08] MEDS: Multivitamins,Therapeutic Tab PO SCH (11:19)
[2016-11-08] MEDS: Metoprolol Tartrate 25 MG Tab PO SCH ×2 (11:19→20:37)
[2016-11-08] MEDS: Digoxin 250 MCG Tab PO SCH (11:21)
[2016-11-08] MEDS: Tolterodine 2 MG Tab PO SCH ×2 (11:21→20:37)
[2016-11-08] MEDS: Nystatin Crm 15 GM Tube TOP SCH ×2 (11:24→20:39)
[2016-11-08] MEDS: Aspirin 81 MG Tab.EC PO SCH (11:24)
[2016-11-08] MEDS: Ferrous Sulfate 325 MG Tab PO SCH (12:58)
[2016-11-08] MEDS: Tamsulosin 0.4 MG Cap.ER PO SCH (20:37)
[2016-11-09] MEDS: Pantoprazole 40 MG Tab.CR PO SCH (06:07)
[2016-11-09] MEDS: Aspirin 81 MG Tab.EC PO SCH (10:37)
[2016-11-09] MEDS: Digoxin 250 MCG Tab PO SCH (10:37)
[2016-11-09] MEDS: Multivitamins,Therapeutic Tab PO SCH (10:37)
[2016-11-09] MEDS: Metoprolol Tartrate 25 MG Tab PO SCH ×2 (10:37→21:03)
[2016-11-09] MEDS: Tolterodine 2 MG Tab PO SCH ×2 (10:37→21:02)
[2016-11-09] MEDS: Nystatin Crm 15 GM Tube TOP SCH ×2 (10:38→21:02)
[2016-11-09] MEDS: Ferrous Sulfate 325 MG Tab PO SCH (15:15)
[2016-11-09] MEDS: Tamsulosin 0.4 MG Cap.ER PO SCH (21:02)
[2016-11-10] MEDS: Pantoprazole 40 MG Tab.CR PO SCH (06:29)
[2016-11-10] MEDS: Aspirin 81 MG Tab.EC PO SCH (08:00)
[2016-11-10] MEDS: Metoprolol Tartrate 25 MG Tab PO SCH ×2 (09:00→20:46)
[2016-11-10] MEDS: Digoxin 250 MCG Tab PO SCH (09:00)
[2016-11-10] MEDS: Multivitamins,Therapeutic Tab PO SCH (09:00)
[2016-11-10] MEDS: Tolterodine 2 MG Tab PO SCH ×2 (09:00→20:46)
--- NOTE | 2016-11-10 11:00 | PCM.PN ---
- General Info Date of Service: 11/09/16 Admission Dx/Problem (Free Text): weakness, anemia Subjective Update: patient reported good fatigue otherwise he declined any other symptoms and he stated he feels good. He denies fever, chills, nausea, vomiting, cough, chest pain, shortness breath, abdominal pain, diarrhea, urinary symptoms, bleeding, or any other symptoms. - Review of Systems General: Denies: Fever, Chills, Night Sweats, Appetite HEENT: Reports: no symptoms Pulmonary: Reports: no symptoms Cardiovascular: Reports: No Symptoms Gastrointestinal: Reports: No symptoms Genitourinary: Reports: no symptoms Musculoskeletal: Reports: no symptoms Skin: Reports: no symptoms Neurological: Reports: No Symptoms Psychiatric: Reports: no symptoms - Patient Data Vitals - most recent: Last Vital Signs Temp 36.4 C 11/10/16 07:47 Pulse 75 11/10/16 07:47 Resp 20 11/10/16 07:47 BP 114/61 11/10/16 07:47 Pulse Ox 97 11/10/16 07:47 Weight - most recent: 88.632 kg I&O - last 24 hours: Intake & Output 11/09/16 11/10/16 11/10/16 22:59 06:59 14:59 Intake Total 400 200 Output Total 400 Balance 400 -200 Med Orders - Current: Current Medications Acetaminophen (Tylenol) 650 mg PO Q4H PRN PRN Reason: Pain (mild 1-3 )/fever Acetaminophen (Tylenol Extra Strength) 500 mg PO Q6H PRN PRN Reason: Pain (mild 1-3) Aspirin (Halfprin) 81 mg PO BRK [facility] Last Admin: 11/09/16 10:37 Dose: 81 mg Bisacodyl (Dulcolax) 10 mg RECTAL DAILY PRN PRN Reason: Constipation Digoxin (Lanoxin) 250 mcg PO DAILY [facility] Last Admin: 11/09/16 10:37 Dose: 250 mcg Ferrous Sulfate (Ferrous Sulfate) 325 mg PO DAILY@1200 [facility] Last Admin: 11/09/16 15:15 Dose: 325 mg Magnesium Hydroxide (Milk Of Magnesia) 30 ml PO DAILY PRN PRN Reason: Constipation Metoprolol Tartrate (Lopressor) 12.5 mg PO BID [facility] Last Admin: 11/09/16 21:03 Dose: 12.5 mg Multivitamins (Thera) 1 each PO DAILY [facility] Last Admin: 11/09/16 10:37 Dose: 1 each Nystatin (Nystatin Crm) 0 gm TOP BID [facility] Last Admin: 11/09/16 21:02 Dose: 1 applic Pantoprazole Sodium (Protonix) 40 mg PO ACBREAKFAST [facility] Last Admin: 11/10/16 06:29 Dose: 40 mg Tamsulosin HCl (Flomax) 0.4 mg PO BEDTIME [facility] Last Admin: 11/09/16 21:02 Dose: 0.4 mg Tolterodine Tartrate (Detrol) 2 mg PO BID [facility] Last Admin: 11/09/16 21:02 Dose: 2 mg Discontinued Medications Levofloxacin (Levaquin) 500 mg PO Q48H [facility] Stop: 11/02/16 09:01 Last Admin: 11/02/16 10:36 Dose: Not Given Metoprolol Tartrate (Lopressor) 25 mg PO BID [facility] - Exam General: alert, oriented, cooperative, no acute distress. No: mild distress, moderate distress, severe distress, sedated, lethargic, obtunded HEENT: Pupils equal, Pupils reactive, EOMI, Mucous membr. moist/pink Neck: supple Lungs: Clear to auscultation, Normal respiratory effort Cardiovascular: Regular Rate, Regular Rhythm Abdomen: bowel sounds present, soft, no tenderness, no distension (Male) Exam: Deferred Back Exam: normal inspection Extremities: no edema, normal pulses, no tenderness/swelling, no clubbing, no cyanosis, no calf tenderness Skin: warm, dry, intact Neurological: no new focal deficit Psy/Mental Status: alert, normal affect, normal mood - Problem List Review Problem List Initiated/Reviewed/Updated: Yes - Assessment Assessment:: The patient is an 81-year-old gentleman with a history of chronic atrial fibrillation, he had been on Eliquis for anticoagulation. He developed hemoptysis and severe blood loss anemia requiring blood transfusions. Workup in [place] was negative for malignancy. 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 Subsequently the patient was [facility] . he has appointment withDr. Lim on 11/10/16 Acute blood loss anemia Hemoglobin seems to be stable That is likely due to the elimination of the recent PRBC transfusions Continue iron supplement Recheck hemoglobin next week Atrial fibrillation Rate is controlled with digoxin, metoprolol Off anticoagulation because of the recent bleed generalized weakness/fatigue Most like from his myelodysplastic/myeloproliferative process Continue physical therapy and occupational therapy Elevated creatinine Was likely he has chronic kidney He was advised to followup with [employer] sales consultant Avoid toxic medication DVT prophylaxis with aspirin, SCDs, yudi hose and ambulation
[2016-11-10] MEDS: Ferrous Sulfate 325 MG Tab PO SCH (16:51)
[2016-11-10] MEDS: Nystatin Crm 15 GM Tube TOP SCH ×2 (17:45→20:47)
[2016-11-10] MEDS: Tamsulosin 0.4 MG Cap.ER PO SCH (20:46)
[2016-11-11] MEDS: Pantoprazole 40 MG Tab.CR PO SCH (05:59)
[2016-11-11] MEDS: Metoprolol Tartrate 25 MG Tab PO SCH ×2 (09:42→21:39)
[2016-11-11] MEDS: Multivitamins,Therapeutic Tab PO SCH (09:42)
[2016-11-11] MEDS: Tolterodine 2 MG Tab PO SCH ×2 (09:43→21:36)
[2016-11-11] MEDS: Nystatin Crm 15 GM Tube TOP SCH ×2 (09:43→21:41)
[2016-11-11] MEDS: Digoxin 250 MCG Tab PO SCH (09:43)
[2016-11-11] MEDS: Aspirin 81 MG Tab.EC PO SCH (09:43)
[2016-11-11] MEDS: Ferrous Sulfate 325 MG Tab PO SCH (12:14)
[2016-11-11] MEDS: Tamsulosin 0.4 MG Cap.ER PO SCH (21:36)
[2016-11-12] MEDS: Pantoprazole 40 MG Tab.CR PO SCH (06:20)
[2016-11-12] MEDS: Aspirin 81 MG Tab.EC PO SCH (10:14)
[2016-11-12] MEDS: Tolterodine 2 MG Tab PO SCH ×2 (10:15→20:25)
[2016-11-12] MEDS: Digoxin 250 MCG Tab PO SCH (10:15)
[2016-11-12] MEDS: Metoprolol Tartrate 25 MG Tab PO SCH ×2 (10:15→20:26)
[2016-11-12] MEDS: Nystatin Crm 15 GM Tube TOP SCH ×2 (10:17→20:27)
[2016-11-12] MEDS: Multivitamins,Therapeutic Tab PO SCH (10:31)
[2016-11-12] MEDS: Ferrous Sulfate 325 MG Tab PO SCH (12:48)
[2016-11-12] MEDS: Tamsulosin 0.4 MG Cap.ER PO SCH (20:25)
[2016-11-13] MEDS: Pantoprazole 40 MG Tab.CR PO SCH (05:22)
[2016-11-13] MEDS: Nystatin Crm 15 GM Tube TOP SCH ×2 (09:54→20:18)
[2016-11-13] MEDS: Tolterodine 2 MG Tab PO SCH ×2 (09:55→20:18)
[2016-11-13] MEDS: Multivitamins,Therapeutic Tab PO SCH (09:55)
[2016-11-13] MEDS: Digoxin 250 MCG Tab PO SCH (09:55)
[2016-11-13] MEDS: Metoprolol Tartrate 25 MG Tab PO SCH ×2 (09:55→20:18)
[2016-11-13] MEDS: Aspirin 81 MG Tab.EC PO SCH (09:55)
[2016-11-13] MEDS: Ferrous Sulfate 325 MG Tab PO SCH (12:41)
[2016-11-13] MEDS: Tamsulosin 0.4 MG Cap.ER PO SCH (20:18)
[2016-11-14] MEDS: Pantoprazole 40 MG Tab.CR PO SCH (05:22)
[2016-11-14] MEDS: Nystatin Crm 15 GM Tube TOP SCH ×2 (13:57→21:55)
[2016-11-14] MEDS: Aspirin 81 MG Tab.EC PO SCH (13:58)
[2016-11-14] MEDS: Tolterodine 2 MG Tab PO SCH (13:58)
[2016-11-14] MEDS: Metoprolol Tartrate 25 MG Tab PO SCH ×2 (13:59→21:49)
[2016-11-14] MEDS: Digoxin 250 MCG Tab PO SCH (13:59)
[2016-11-14] MEDS: Ferrous Sulfate 325 MG Tab PO SCH (14:00)
[2016-11-14] MEDS: Multivitamins,Therapeutic Tab PO SCH (14:00)
[2016-11-14] MEDS ORDERED: Tolterodine 2 MG Tab PO ONE (14:59)
[2016-11-14] MEDS ORDERED: Ferrous Sulfate 325 MG Tab PO ONE (14:59)
[2016-11-14] MEDS ORDERED: Digoxin 250 MCG Tab PO ONE (14:59)
[2016-11-14] MEDS ORDERED: Aspirin 81 MG Tab.EC PO ONE (14:59)
[2016-11-14] MEDS ORDERED: Multivitamins,Therapeutic Tab PO ONE (14:59)
[2016-11-14] MEDS ORDERED: Metoprolol Tartrate 25 MG Tab PO ONE (14:59)
[2016-11-14] MEDS: Tamsulosin 0.4 MG Cap.ER PO SCH (21:49)
[2016-11-15] MEDS: Pantoprazole 40 MG Tab.CR PO SCH (06:33)
[2016-11-15 07:19] VITALS: BP 114/54
[2016-11-15] MEDS: Digoxin 250 MCG Tab PO SCH (11:01)
[2016-11-15] MEDS: Metoprolol Tartrate 25 MG Tab PO SCH (11:03)
[2016-11-15] MEDS: Multivitamins,Therapeutic Tab PO SCH (11:03)
[2016-11-15] MEDS: Aspirin 81 MG Tab.EC PO SCH (11:03)
[2016-11-15] MEDS: Ferrous Sulfate 325 MG Tab PO SCH (12:34)
[2016-11-15] MEDS: Nystatin Crm 15 GM Tube TOP SCH (12:35)
--- NOTE | 2016-11-15 13:16 | PCM.DCSUM1 ---
Discharge Summary - Hospital Course Free Text/Narrative:: 81-year-old gentleman with past medical history of chronic atrial fibrillation who was on Eliquis who developed hemoptysis at the end of last August. review of system he was noticed to have a 30 pound weight loss in few months and was admitting to have weakness. CT scan of the chest without contrast showed multilobar changes which raised question of infiltrates versus infarct but he did not have any signs of primary malignancy or metastatic disease. his hemoglobin at that time was 8.4 and dropped to 7.5 next day. He had one unit of packed RBC transfused. He was transferred to [place] and received 4 units of RBCs there. He underwent bronchoscopy with bronchial washings. It was negative for malignancy. His Eliquis was stopped. he had bone marrow biopsy on which showed a prostatic anemia was normal last doses and he was diagnosed with myeloprolifelative or myelodysplastic process. He was seen by Dr. Lim on 11/10/[address] 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 BCR/ABL negative. 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 I had a long discussion with Mr. Brian and his family and I said these are very complicated diseases. The problem is just there are not a lot of them out there and they are all kind of different. I told him, when you look at myeloproliferative disorders, he has high-risk features. He had circulating blasts and he has fibrosis, although the good news is clinically he looks a lot better. When I first met him, he was just profoundly debilitated and weak, was losing weight, and the question was, how much was that related to the myeloproliferative disorder because these people can have constitutional symptoms, but he does not really seem to have anything now so I think there were just a lot of confounders. 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 The only really existing problem is the anemia now. I do not think he has any constitutional symptoms. He looks healthy. His erythropoietin level is not elevated, so I think it is worth trying him on an erythropoietin stimulating agent and just watch his hemoglobins closely. I explained to him there are drugs out there that target the JAK2 pathway. There is a drug called ruxolitinib which has been really approved for people with high-risk myeloproliferative disorders that have constitutional symptoms or symptomatic splenomegaly. It really does not seem to improve the fibrosis or improve the anemia. I do not think anybody really knows how to improve the fibrosis. There is some data that perhaps drugs like lenalidomide or other immune modulators may help with the fibrosis and could help with the anemia in people who have myelodysplastic syndromes. The question is, does he have a straight-up myeloproliferative disorder or does he have one of these overlap syndromes where you get these myeloproliferative disorder/myelodysplastic syndromes because he has the trisomy 8, although I explained to him, if you look at the molecular biology of these diseases - the myeloproliferative disorders, the myelodysplastic syndromes, and even the acute myelogenous leukemias - there is a lot of overlap. If he were to start to have constitutional symptoms or symptomatic splenomegaly, then one could consider initiation of a JAK2 inhibitor such as ruxolitinib. The other issue with him is nobody has reported a big spleen on any of his imaging studies. He had an MRI of the abdomen I will speak with Dr. Mtz in this regard just to make sure, but I do not feel a big spleen on physical examination. Typically, people with myelofibrosis, which is the myeloproliferative disorder, (it is also called agnogenic myeloid metaplasia ), a high percentage of those people will have associated splenomegaly so it suggests there may be more of a component of some myelodysplastic syndrome-like phenomenon" plan of care during his stay: Acute blood loss anemia/hemoptysis Hemoglobin seems to be stable That is likely due to the elimination of the recent PRBC transfusions Continue iron supplement Recheck hemoglobin next week Atrial fibrillation Rate is controlled with digoxin, metoprolol Off anticoagulation because of the recent bleed generalized weakness/fatigue Most like from his myelodysplastic/myeloproliferative process Continue physical therapy and occupational therapy Elevated creatinine Was likely he has chronic kidney He was advised to followup with furnace attendant Avoid toxic medication DVT prophylaxis with aspirin, SCDs, yudi hose and ambulation - Discharge Data Discharge Date: 11/15/16 Discharge Disposition: Home, Self-Care 01 Condition: Good - Discharge Diagnosis/Problem(s) (1) A-fib SNOMED Code(s): 21653957 ICD Code: I48.91 - UNSPECIFIED ATRIAL FIBRILLATION Status: Chronic Current Visit: No Qualifiers: Atrial fibrillation type: chronic Qualified Code(s): I48.2 - Chronic atrial fibrillation (2) LIV (acute kidney injury) SNOMED Code(s): 23858661 ICD Code: N17.9 - ACUTE KIDNEY FAILURE, UNSPECIFIED Status: Resolved Current Visit: No (3) Anemia SNOMED Code(s): 935642121 ICD Code: D64.9 - ANEMIA, UNSPECIFIED Status: Chronic Current Visit: No Qualifiers: (4) Hemoptysis SNOMED Code(s): 95487166 ICD Code: R04.2 - HEMOPTYSIS Status: Resolved Current Visit: No (5) Renal failure SNOMED Code(s): 89450835 ICD Code: N19 - UNSPECIFIED KIDNEY FAILURE Status: Chronic Current Visit : No (6) Weakness SNOMED Code(s): 59087040 ICD Code: R53.1 - WEAKNESS Status: Acute Current Visit: No - Patient Summary/Data Consults: Consultations 10/28/16 14:27 OT Evaluation and Treatment [CONS] Routine PT Evaluation and Treatment [CONS] Routine - Patient Instructions Diet: Heart Healthy Diet Activity: As Tolerated Showering/Bathing: May Shower Notify Provider of: Fever, Nausea and/or Vomiting - Discharge Plan Home Medications: Home Meds Aspirin [Halfprin] 81 mg PO BRK 07/01/16 [History] Multivitamins [Tab-A-Alex] 1 tab PO DAILY 07/01/16 [History] Acetaminophen 500 mg PO Q6H PRN 10/28/16 [History] Digoxin 250 mcg PO DAILY 10/28/16 [History] Ferrous Gluconate 324 mg PO DAILY 10/28/16 [History] Pantoprazole [ProTONIX] 40 mg PO ACBREAKFAST 10/28/16 [History] Phenazopyridine HCl 100 mg PO BID PRN 10/28/16 [History] Tamsulosin HCl 0.4 mg PO BEDTIME 10/28/16 [History] Metoprolol Tartrate [Lopressor] 12.5 mg PO BID #0 11/15/16 [Rx] Patient Handouts: Hyperglycemic Hyperosmolar State, Anemia, Nonspecific, Fatigue, Weakness, [id number], Atrial Fibrillation, [id number] - Discharge Summary/Plan Comment DC Time >30 min.: Yes (40 minutes were spent discharging the patient ) - General Info Admission Dx/Problem (Free Text: weakness, anemia Functional Status: Reports: pain controlled - Review of Systems General: Reports: No Symptoms (accept some weakness and fatigue) HEENT: Reports: no symptoms Pulmonary: Reports: no symptoms Cardiovascular: Reports: No Symptoms Gastrointestinal: Reports: No symptoms Genitourinary: Reports: no symptoms Musculoskeletal: Reports: no symptoms Skin: Reports: no symptoms Neurological: Reports: No Symptoms Psychiatric: Reports: no symptoms - Patient Data Vitals - Most Recent: Last Vital Signs Temp 36.7 C 11/15/16 07:00 Pulse 64 11/15/16 11:03 Resp 20 11/15/16 07:00 BP 114/54 L 11/15/16 11:03 Pulse Ox 93 L 11/15/16 07:00 Weight - Most Recent: 88.632 kg I&O - Last 24 hours: Intake & Output 11/14/16 11/15/16 11/15/16 22:59 06:59 14:59 Intake Total 180 200 Output Total 550 Balance 180 -350 Lab Results - Last 24 hrs: Laboratory Results - last 24 hr 11/15/16 Range/Units 10:36 Hgb 9.4 L (14.0-18.0) g/dL Hct 31.7 L (40.0-54.0) % Med Orders - Current: Current Medications Acetaminophen (Tylenol) 650 mg PO Q4H PRN PRN Reason: Pain (mild 1-3 )/fever Acetaminophen (Tylenol Extra Strength) 500 mg PO Q6H PRN PRN Reason: Pain (mild 1-3) Aspirin (Halfprin) 81 mg PO BRK [facility] Last Admin: 11/15/16 11:03 Dose: 81 mg Bisacodyl (Dulcolax) 10 mg RECTAL DAILY PRN PRN Reason: Constipation Digoxin (Lanoxin) 250 mcg PO DAILY [facility] Last Admin: 11/15/16 11:01 Dose: 250 mcg Ferrous Sulfate (Ferrous Sulfate) 325 mg PO DAILY@1200 [facility] Last Admin: 11/15/16 12:34 Dose: 325 mg Magnesium Hydroxide (Milk Of Magnesia) 30 ml PO DAILY PRN PRN Reason: Constipation Metoprolol Tartrate (Lopressor) 12.5 mg PO BID [facility] Last Admin: 11/15/16 11:03 Dose: 12.5 mg Multivitamins (Thera) 1 each PO DAILY [facility] Last Admin: 11/15/16 11:03 Dose: 1 each Nystatin (Nystatin Crm) 0 gm TOP BID [facility] Last Admin: 11/15/16 12:35 Dose: 1 applic Pantoprazole Sodium (Protonix) 40 mg PO ACBREAKFAST [facility] Last Admin: 11/15/16 06:33 Dose: 40 mg Tamsulosin HCl (Flomax) 0.4 mg PO BEDTIME [facility] Last Admin: 11/14/16 21:49 Dose: 0.4 mg Discontinued Medications Levofloxacin (Levaquin) 500 mg PO Q48H [facility] Stop: 11/02/16 09:01 Last Admin: 11/02/16 10:36 Dose: Not Given Metoprolol Tartrate (Lopressor) 25 mg PO BID [facility] Tolterodine Tartrate (Detrol) 2 mg PO BID [facility] Last Admin: 11/14/16 13:58 Dose: Not Given - Exam General: Reports: alert, oriented, cooperative, no acute distress. Denies: mild distress, moderate distress, severe distress, sedated, lethargic HEENT: Reports: Pupils equal, Pupils reactive, EOMI, Mucous membr. moist/pink Neck: Reports: supple, trachea midline, no JVD Lungs: Reports: Clear to auscultation, Normal respiratory effort Cardiovascular: Reports: Regular Rate, Regular Rhythm Abdomen: Reports: bowel sounds present, soft, no tenderness, no distension (Male) Exam: Deferred Rectal (Males) Exam: Deferred Back Exam: Reports: Normal Inspection, Full Range of Motion Extremities: Reports: no edema Skin: Reports: warm, dry, intact Wound/Incisions: Reports: healing well Neurological: Reports: no new focal deficit Psy/Mental Status: Reports: alert, normal affect, normal mood *Q Meaningful Use (DIS) - VTE *Q VTE Criteria *Q: - Stroke *Q Stroke Criteria *Q: - AMI *Q AMI Criteria *Q:
== END 2016-11-15 15:00 | disposition home or self-care (01) | DRG 812 ==
LOC: UNDOADMIN 13:47 → DL.MS 13:47
PROVIDERS: ADMIT Internal Medicine; ATTEND Internal Medicine
DX: D62 Acute posthemorrhagic anemia (principal); C94.6 Myelodysplastic disease, not elsewhere classified; R04.2 Hemoptysis; I48.2 Chronic atrial fibrillation; R79.89 Other specified abnormal findings of blood chemistry; R53.1 Weakness; Z79.01 Long term (current) use of anticoagulants
CPT/HCPCS: 36415; 80048; 80053; 82565; 83615; 84550; 85014; 85018; 85025; 85027; 94010; 97110-GO; 97110-GP; 97116-GP; 97161-GP; 97165-GO; 97530-GO; 97535-GO; A9270-GY

== ENCOUNTER 2016-12-08 18:52 | Inpatient (IN) | payer MEDICARE, OTHER ==
--- NOTE | 2016-12-08 22:21 | EDM.PDOC ---
ED HPI GENERAL MEDICAL PROBLEM - General Chief Complaint: General Stated Complaint: WEAKNESS/POOR INTAKE Time Seen by Provider: 12/08/16 22:06 Source of Information: Reports: Patient, Family History Limitations: Reports: No Limitations - History of Present Illness INITIAL COMMENTS - FREE TEXT/NARRATIVE: This 81 yo male patient was brought to the ED by family members. The patient reports he came to the ED because he has been coughing for the past 2 weeks and he has no appetite. The patient's family reports the patient got discharged from [facility] on 11/13/16 and has had a 30 pound weight loss since his discharge. The family reports the patient has fallen several times while at home. The patient was seen by his primary care provider yesterday, but this information was not relayed to the provider. The patient does have someone to do his laundry and vacuum the floor. The patient does not have anyone to cook for him and he has not been cooking for himself due to no appetite. Onset: Gradual Duration: Week(s): Location: Reports: Generalized Severity: Moderate Improves with: Reports: None Worsens with: Reports: None Associated Symptoms: Reports: No Other Symptoms - Related Data Allergies Allergy/AdvReac Type Severity Reaction Status Date / Time No Known Allergies Allergy Verified 12/08/16 21:18 Home Meds: Home Meds Aspirin [Halfprin] 81 mg PO BRK 07/01/16 [History] Multivitamins [Tab-A-Alex] 1 tab PO DAILY 07/01/16 [History] Acetaminophen 500 mg PO Q6H PRN 10/28/16 [History] Digoxin 250 mcg PO DAILY 10/28/16 [History] Ferrous Gluconate 324 mg PO DAILY 10/28/16 [History] Pantoprazole [ProTONIX] 40 mg PO ACBREAKFAST 10/28/16 [History] Metoprolol Tartrate [Lopressor] 12.5 mg PO BID #0 11/15/16 [Rx] Past Medical History HEENT History: Reports: Cataract Other HEENT History: bilateral catarct surgery Cardiovascular History: Reports: Afib Respiratory History: Reports: Pneumonia, Recurrent Gastrointestinal History: Reports: Bowel Obstruction Genitourinary History: Reports: Renal Calculus Musculoskeletal History: Reports: Osteoarthritis Other Musculoskeletal History: right knee Neurological History: Reports: None Psychiatric History: Reports: None Hematologic History: Reports: Anemia, Blood Transfusion(s) Immunologic History: Reports: None Oncologic (Cancer) History: Reports: None Dermatologic History: Reports: Other (See Below) Other Dermatologic History: scattered bruising - Infectious Disease History Infectious Disease History: Reports: Measles - Past Surgical History HEENT Surgical History: Reports: Cataract Surgery Male Surgical History: Reports: None, Other (See Below) Musculoskeletal Surgical History: Reports: Amputation, Arthroscopic Knee, Other (See Below) Social & Family History - Family History Family Medical History: Noncontributory Cardiac: Reports: Afib GI: Reports: None Psychiatric: Reports: None Endocrine/Metabolic: Reports: None - Tobacco Use Smoking Status *Q: Former Smoker Years of Tobacco use: 30 Packs/Tins Daily: 1 Used Tobacco, but Quit: Yes Month Tobacco Last Used: 12 Second Hand Smoke Exposure: No - Caffeine Use Caffeine Use: Reports: Coffee - Recreational Drug Use Recreational Drug Use: No ED ROS GENERAL - Review of Systems Review Of Systems: ROS reveals no pertinent complaints other than HPI. ED EXAM, GENERAL - Physical Exam Exam: See Below Exam Limited By: No Limitations General Appearance: Alert, WD/WN, Mild Distress Eye Exam: Bilateral Eye: EOMI, Normal Inspection, PERRL Ears: Normal External Exam, Normal Canal, Hearing Grossly Normal, Normal TMs Nose: Normal Inspection, Normal Mucosa, No Blood Throat/Mouth: Normal Inspection, Normal Lips, Normal Teeth, Normal Gums, Normal Oropharynx, Normal Voice, No Airway Compromise, Other (dry) Head: Atraumatic, Normocephalic Neck: Normal Inspection, Supple, Non-Tender, Full Range of Motion Respiratory/Chest: No Respiratory Distress, Lungs Clear, Normal Breath Sounds, No Accessory Muscle Use, Chest Non-Tender Cardiovascular: No Edema, No Gallop, No JVD, No Murmur, No Rub, Irregularly Irregular GI/Abdominal: Normal Bowel Sounds, Soft, Non-Tender, No Organomegaly, No Distention, No Abnormal Bruit, No Mass (Male) Exam: Deferred Rectal (Males) Exam: Deferred Back Exam: Normal Inspection, Full Range of Motion, NT Extremities: Normal Inspection, Normal Range of Motion, Non-Tender, Normal Capillary Refill, No Pedal Edema Neurological: Alert, Oriented, CN II-XII Intact, Normal Cognition, Normal Gait, Normal Reflexes, No Motor/Sensory Deficits Psychiatric: Normal Affect, Normal Mood Skin Exam: Warm, Dry, Intact, Normal Color, No Rash Lymphatic: No Adenopathy Course - Vital Signs Last Recorded V/S: Last Vital Signs Temp 37.5 C 12/08/16 19:45 Pulse 87 12/08/16 19:45 Resp 20 12/08/16 19:45 BP 95/51 L 12/08/16 19:45 Pulse Ox 99 12/08/16 19:45 - Orders/Labs/Meds Orders: Active Orders 24 hr Category Date Time Status CULTURE BLOOD [BC] Stat Lab 12/08/16 22:57 Ordered CULTURE BLOOD [BC] Stat Lab 12/08/16 22:57 Ordered DIGOXIN [CHEM] Stat Lab 12/08/16 22:23 Received LACTIC ACID [CHEM] Stat Lab 12/08/16 22:56 Ordered UA W/MICROSCOPIC [URIN] Stat Lab 12/08/16 22:13 Uncollected Sodium Chloride 0.9% [Normal Saline] 1,000 ml Med 12/08/16 22:58 Active IV .BOLUS Blood Culture x2 Reflex Set [OM.PC] Stat Oth 12/08/16 22:56 Ordered Medication Orders Sodium Chloride (Normal Saline) 1,000 mls @ 125 mls/hr IV .BOLUS ONE Stop: 12/09/16 06:57 Labs: Laboratory Tests 12/08/16 12/08/16 Range/Units 22:23 22:23 WBC 18.9 H (5.0-10.0) 10^3/uL RBC 3.48 L (4.6-6.2) 10^6/uL Hgb 11.2 L (14.0-18.0) g/dL Hct 38.1 L (40.0-54.0) % MCV 109.5 H (80-100) fL MCH 32.2 (27.0-34.0) pg MCHC 29.4 L (33.0-35.0) g/dL RDW Not Reportable RDW Coeff of Benito Not Reportable Plt Count 187 (150-450) 10^3/uL MPV Not Reportable Neut % (Auto) Cancelled Lymph % (Auto) Cancelled [place] % (Auto) Cancelled Eos % (Auto) Cancelled Baso % (Auto) Cancelled Add Manual Diff Cancelled Neutrophils % (Manual) 31 % Band Neutrophils % 6 % Lymphocytes % (Manual) 51 % Atypical Lymphs % 6 % Monocytes % (Manual) 6 % Manual Slide Review Cancelled Sodium 153 H (135-145) mmol/L Potassium 4.8 (3.6-5.0) mmol/L Chloride 116 H (101-111) mmol/L Carbon Dioxide 23.0 (21.0-31.0) mmol/L Anion Gap 18.8 BUN 45 H (7-18) mg/dL Creatinine 2.4 H (0.6-1.3) mg/dL Est Cr Clr Drug Dosing 27.10 mL/min Estimated GFR (MDRD) 26 BUN/Creatinine Ratio 18.75 Glucose 110 H (74-105) mg/dL Calcium 9.3 (8.4-10.2) mg/dl Magnesium 2.7 H (1.8-2.5) mg/dL Total Bilirubin 3.0 H (0.2-1.0) mg/dL AST 33 (10-42) IU/L ALT 16 (10-60) IU/L Alkaline Phosphatase 234 H (42-121) IU/L Total Protein 7.9 (6.7-8.2) g/dl Albumin 4.0 (3.2-5.5) g/dl Globulin 3.9 Albumin/Globulin Ratio 1.03 Meds: Medications Generic Name Dose Route Start Last Admin Trade Name Freq PRN Reason Stop Dose Admin Sodium Chloride 1,000 mls @ 125 mls/hr 12/08/16 22:58 Normal Saline IV 12/09/16 06:57 .BOLUS ONE Departure - Departure Time of Disposition: 23:05 Disposition: Admitted As Inpatient 66 Condition: poor Clinical Impression: Dehydration, Hypernatremia Renal failure (ARF), acute on chronic Qualifiers: Acute renal failure type: unspecified Chronic kidney disease stage: unspecified stage Qualified Code(s): N17.9 - Acute kidney failure, unspecified; N18.9 - Chronic kidney disease, unspecified - Discharge Information Forms: ED Department Discharge Care Plan Goals: Discussed the examination, history, lab and x-ray results with Dr. Connolly. Dr. Connolly accepted the patient for continued evaluation and further treatment as an inpatient at [facility] [place]. - My Orders Last 24 Hours: My Active Orders 12/08/16 22:13 UA W/MICROSCOPIC [URIN] Stat 12/08/16 22:23 DIGOXIN [CHEM] Stat 12/08/16 22:56 LACTIC ACID [CHEM] Stat Blood Culture x2 Reflex Set [OM.PC] Stat 12/08/16 22:57 CULTURE BLOOD [BC] Stat CULTURE BLOOD [BC] Stat 12/08/16 22:58 Sodium Chloride 0.9% [Normal Saline] 1,000 ml IV .BOLUS - Assessment/Plan Last 24 Hours: My Active Orders 12/08/16 22:13 UA W/MICROSCOPIC [URIN] Stat 12/08/16 22:23 DIGOXIN [CHEM] Stat 12/08/16 22:56 LACTIC ACID [CHEM] Stat Blood Culture x2 Reflex Set [OM.PC] Stat 12/08/16 22:57 CULTURE BLOOD [BC] Stat CULTURE BLOOD [BC] Stat 12/08/16 22:58 Sodium Chloride 0.9% [Normal Saline] 1,000 ml IV .BOLUS
[2016-12-08] MEDS ORDERED: Sodium Chloride 0.9% 1,000 ML IV ONE (22:58)
[2016-12-09] MEDS ORDERED: Zolpidem 5 MG Tab PO PRN (00:28)
[2016-12-09] MEDS ORDERED: Ondansetron 4 MG Tab.DIS PO PRN (00:28)
--- NOTE | 2016-12-09 00:36 | PCM.HP ---
H&P History of Present Illness - General Date of Service: 12/09/16 Admit Problem/Dx: Admission Diagnosis/Problem Admission Diagnosis/Problem Renal failure Source of Information: Patient, Family - History of Present Illness Initial Comments - Free Text/Narative: the patient is an 81-year-old gentleman who has been living independently. Has a history of myeloproliferative disorder, atrial fibrillation. The patient was brought in by family that he is getting weaker, not eating, and appeared dehydrated, has been increasingly unsteady. the patient denies of pain in fact no pain at all. He does have some coughing up mucus after eating. The patient had acute hospitalization and Hospital hospital where he was elevated 4 to swallowing dysfunction, myeloproliferative disorder, renal failure. Subsequently was in a swing bed and appeared to get stronger. Nevertheless since discharge home the patient has been declining, not eating, not drinking. - Related Data Allergies/Adverse Reactions: Allergies Allergy/AdvReac Type Severity Reaction Status Date / Time No Known Allergies Allergy Verified 12/08/16 21:18 Home Medications: Home Meds Aspirin [Halfprin] 81 mg PO BRK 07/01/16 [History] Acetaminophen 500 mg PO Q6H PRN 10/28/16 [History] Digoxin 250 mcg PO DAILY 10/28/16 [History] Ferrous Gluconate 324 mg PO DAILY 10/28/16 [History] Pantoprazole [ProTONIX] 40 mg PO ACBREAKFAST 10/28/16 [History] Metoprolol Tartrate [Lopressor] 12.5 mg PO BID #0 11/15/16 [Rx] Past Medical History HEENT History: Reports: Cataract, Hard of Hearing, Impaired Vision Other HEENT History: bilateral catarct surgery,[place] right ear Cardiovascular History: Reports: Afib Respiratory History: Reports: Pneumonia, Recurrent Gastrointestinal History: Reports: Bowel Obstruction Genitourinary History: Reports: Renal Calculus Musculoskeletal History: Reports: Osteoarthritis Other Musculoskeletal History: 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 Neurological History: Reports: None Psychiatric History: Reports: None Endocrine/Metabolic History: Reports: None Hematologic History: Reports: Anemia, Blood Transfusion(s) Immunologic History: Reports: None Oncologic (Cancer) History: Reports: None Dermatologic History: Reports: Other (See Below) Other Dermatologic History: steri strips to left forearm due top falling on dresser - Infectious Disease History Infectious Disease History: Reports: Measles, Mumps - Past Surgical History HEENT Surgical History: Reports: Cataract Surgery Cardiovascular Surgical History: Reports: None Respiratory Surgical History: Reports: None GI Surgical History: Reports: Appendectomy, Colonoscopy, EGD Male Surgical History: Reports: None Endocrine Surgical History: Reports: None Neurological Surgical History: Reports: None Musculoskeletal Surgical History: Reports: Amputation, Arthroscopic Knee, Other (See Below) Dermatological Surgical History: Reports: None Social & Family History - Family History Family Medical History: Noncontributory Cardiac: Reports: Afib GI: Reports: None Psychiatric: Reports: None Endocrine/Metabolic: Reports: None - Tobacco Use Smoking Status *Q: Former Smoker Years of Tobacco use: 30 Packs/Tins Daily: 1 Used Tobacco, but Quit: Yes Month Tobacco Last Used: December Second Hand Smoke Exposure: No - Caffeine Use Caffeine Use: Reports: None - Recreational Drug Use Recreational Drug Use: No H&P Review of Systems - Review of Systems: Review Of Systems: See Below General: Reports: Weakness. Denies: Fever Pulmonary: Denies: Shortness of Breath Cardiovascular: Denies: Chest Pain Gastrointestinal: Denies: Abdominal Pain Genitourinary: Denies: Dysuria Psychiatric: Reports: Depression (started on Lexapro ) Exam - Exam Exam: See Below - Vital Signs Vital Signs: Last Vital Signs Temp 37.5 C 12/08/16 19:45 Pulse 87 12/08/16 19:45 Resp 20 12/08/16 19:45 BP 95/51 L 12/08/16 19:45 Pulse Ox 99 12/08/16 19:45 Weight: 75.098 kg - Exam General: Alert, Oriented Neck: Supple Lungs: Clear to Auscultation, Normal Respiratory Effort Cardiovascular: Irregular Rhythm Abdomen: Normal Bowel Sounds, Soft Extremities: Normal Inspection. No: Edema Neuro Extensive - Mental Status: Alert, Oriented x3, Normal Mood/Affect, Normal Cognition Psychiatric: Alert, Normal Affect, Depressed (according to family) - Patient Data Lab Results last 24 hrs: Laboratory Results - last 24 hr 12/08/16 Range/Units 23:23 Lactic Acid 2.0 (0.5-2.2) mmol/L Result Diagrams: 12/08/16 22:23 12/08/16 22:23 *Q Meaningful Use (ADM) - VTE *Q VTE Criteria *Q: - Stroke *Q Stroke Criteria *Q: - AMI *Q AMI Criteria *Q: - Problem List (1) Dehydration SNOMED Code(s): 71931612 ICD Code: E86.0 - DEHYDRATION Status: Acute Current Visit: Yes (2) Hypernatremia SNOMED Code(s): 01276289 ICD Code: E87.0 - HYPEROSMOLALITY AND HYPERNATREMIA Status: Acute Current Visit: Yes (3) Renal failure (ARF), acute on chronic SNOMED Code(s): 992743468 ICD Code: N17.9 - ACUTE KIDNEY FAILURE, UNSPECIFIED; N18.9 - CHRONIC KIDNEY DISEASE, UNSPECIFIED Status: Acute Current Visit: Yes Qualifiers: Acute renal failure type: unspecified Chronic kidney disease stage: unspecified stage Qualified Code(s): N17.9 - Acute kidney failure, unspecified ; N18.9 - Chronic kidney disease, unspecified (4) Weakness SNOMED Code(s): 47026035 ICD Code: R53.1 - WEAKNESS Status: Acute Current Visit: No Problem List Initiated/Reviewed/Updated: Yes Orders Last 24hrs: Active Orders 24 hr Category Date Time Status Patient Status [ADT] Routine ADT 12/09/16 00:29 Ordered Oxygen Therapy [RC] PRN Care 12/09/16 00:29 Ordered Up With Assistance [RC] ASDIRECTED Care 12/09/16 00:28 Ordered VTE/DVT Education [RC] PER UNIT ROUTINE Care 12/09/16 00:29 Ordered Vital Signs [RC] Q4H Care 12/09/16 00:29 Ordered OT Evaluation and Treatment [CONS] Routine Cons 12/09/16 00:28 Ordered PT Evaluation and Treatment [CONS] Routine Cons 12/09/16 00:28 Ordered Regular Diet [DIET] Diet 12/09/16 Breakfast Ordered BASIC METABOLIC PANEL,BMP [CHEM] AM Lab 12/09/16 05:11 Ordered BASIC METABOLIC PANEL,BMP [CHEM] AM Lab 12/10/16 05:11 Ordered CBC WITH AUTO DIFF [HEME] AM Lab 12/09/16 05:11 Ordered CBC WITH AUTO DIFF [HEME] AM Lab 12/10/16 05:11 Ordered HEPATIC FUNCTION PANEL,HFP [CHEM] AM Lab 12/09/16 05:11 Ordered Aspirin [Halfprin] Med 12/09/16 00:30 Ordered 81 mg PO BRK Escitalopram [Lexapro] Med 12/09/16 09:00 Ordered 5 mg PO DAILY Ferrous Gluconate [Ferrous Gluconate] Med 12/09/16 09:00 Ordered 324 mg PO DAILY Heparin Sodium Med 12/09/16 06:00 Ordered 5,000 units SUBCUT Q8HR Metoprolol Tartrate [Lopressor] Med 12/09/16 09:00 Ordered 12.5 mg PO BID Ondansetron [Zofran ODT] Med 12/09/16 00:28 Ordered 4 mg PO Q6H PRN Pantoprazole [ProTONIX] Med 12/09/16 06:00 Ordered 40 mg PO ACBREAKFAST Zolpidem [Ambien] Med 12/09/16 00:28 Ordered 5 mg PO BEDTIME PRN Resuscitation Status Routine Resus Stat 12/09/16 00:28 Ordered Medication Orders Aspirin (Halfprin) 81 mg PO BRK DANYA Escitalopram Oxalate (Lexapro) 5 mg PO DAILY [facility] Sodium Chloride (Normal Saline) 1,000 mls @ 125 mls/hr IV .BOLUS ONE Stop: 12/09/16 06:57 Last Admin: 12/08/16 23:24 Dose: 125 mls/hr Metoprolol Tartrate (Lopressor) 12.5 mg PO BID [facility] Non-Formulary Medication (Ferrous Gluconate [Ferrous Gluconate]) 324 mg PO DAILY [facility] Pantoprazole Sodium (Protonix) 40 mg PO ACBREAKFAST [facility] Assessment/Plan Comment:: Acute renal failure and hypernatremia due to Dehydration due to poor oral intake The patient does have a history of renal failure due to hydronephrosis and obstructive stone That resolved after stone removal and stenting Baseline creatinine is around 1.4 Start the patient on IV fluid treatment Start with normal saline IV fluid Recheck electrolytes in about 6 hours Adjust fluid as needed Consider renal ultrasound if no improvement in renal function Myeloproliferative disorder with bone marrow fibrosis Follow CBC after hydration Hyperbilirubinemia, elevated alkaline phosphatase Likely due to dehydration and myeloproliferative disorder Continue iron for anemia Chronic atrial fibrillation Elevated digoxin level Hold digoxin for now Continue metoprolol for rate control On no anticoagulation due to h/o hemoptysis Had episodes of falling, I will not start that now Weakness, weight loss get physical therapy and occupational therapy see the patient Lexapro for depression DVT prophylaxis with subcutaneous heparin Follow for possible hemoptysis
[2016-12-09] MEDS: Aspirin 81 MG Tab.EC PO SCH ×2 (00:53→09:02)
[2016-12-09] MEDS: Pantoprazole 40 MG Tab.CR PO SCH (05:36)
[2016-12-09] MEDS: Heparin Sodium 5,000 Units/ML Vial SUBCUT SCH ×3 (05:36→23:08)
[2016-12-09] MEDS ORDERED: Escitalopram 10 MG Tab PO SCH (09:00)
[2016-12-09] MEDS ORDERED: Non-Formulary Medication 1 Each (Ferrous Gluconate [Ferrous Gluconate] 324 MG) PO SCH (09:00)
[2016-12-09] MEDS: Metoprolol Tartrate 25 MG Tab PO SCH ×2 (09:23→23:10)
--- NOTE | 2016-12-09 10:27 | PCM.PN ---
- General Info Date of Service: 12/09/16 Admission Dx/Problem (Free Text): Admission Diagnosis/Problem Admission Diagnosis/Problem Renal failure presented with not eating, not drinking. Found to have acute renal failure and hypernatremia. Functional Status: Reports: pain controlled, tolerating diet (eating cream of wheat) - Review of Systems General: Denies: Fever Pulmonary: Denies: shortness of breath Cardiovascular: Denies: Chest Pain Gastrointestinal: Denies: Abdominal pain Neurological: Denies: Confusion - Patient Data Vitals - most recent: Last Vital Signs Temp 36.5 C 12/09/16 08:00 Pulse 93 12/09/16 09:23 Resp 16 12/09/16 08:00 BP 125/45 L 12/09/16 09:23 Pulse Ox 97 12/09/16 08:00 Weight - most recent: 75.098 kg I&O - last 24 hours: Intake & Output 12/08/16 12/09/16 12/09/16 22:59 06:59 14:59 Intake Total 1054 230 Output Total 100 Balance 954 230 Lab Results last 24 hrs: Laboratory Results - last 24 hr 12/09/16 12/09/16 Range/Units 06:05 06:05 WBC 14.8 H (5.0-10.0) 10^3/uL RBC 3.14 L (4.6-6.2) 10^6/uL Hgb 10.4 L (14.0-18.0) g/dL Hct 34.1 L (40.0-54.0) % MCV 108.6 H (80-100) fL MCH 33.1 (27.0-34.0) pg MCHC 30.5 L (33.0-35.0) g/dL Plt Count 164 (150-450) 10^3/uL Add Manual Diff Yes Neutrophils % (Manual) 54 % Band Neutrophils % 5 % Lymphocytes % (Manual) 16 % Monocytes % (Manual) 2 % Eosinophils % (Manual) 4 % Metamyelocytes % 19 Nucleated RBCs 9 /100WBC Sodium 150 H (135-145) mmol/L Potassium 4.4 (3.6-5.0) mmol/L Chloride 118 H (101-111) mmol/L Carbon Dioxide 21.0 (21.0-31.0) mmol/L Anion Gap 15.4 BUN 45 H (7-18) mg/dL Creatinine 2.3 H (0.6-1.3) mg/dL Est Cr Clr Drug Dosing 26.76 mL/min Estimated GFR (MDRD) 27 Glucose 93 (74-105) mg/dL Calcium 9.0 (8.4-10.2) mg/dl Total Bilirubin 2.8 H (0.2-1.0) mg/dL Direct Bilirubin 0.9 H (0.0-0.2) mg/dL Indirect Bilirubin 1.9 AST 28 (10-42) IU/L ALT 15 (10-60) IU/L Alkaline Phosphatase 216 H (42-121) IU/L Total Protein 7.3 (6.7-8.2) g/dl Albumin 3.6 (3.2-5.5) g/dl Globulin 3.7 Albumin/Globulin Ratio 0.97 Med Orders - Current: Current Medications Aspirin (Halfprin) 81 mg PO BRK [facility] Last Admin: 12/09/16 09:02 Dose: 81 mg Escitalopram Oxalate (Lexapro) 5 mg PO BEDTIME [facility] Heparin Sodium (Porcine) (Heparin Sodium) 5,000 units SUBCUT Q8HR [facility] Last Admin: 12/09/16 05:36 Dose: 5,000 units Sodium Chloride (Sodium Chloride 0.45%) 1,000 mls @ 125 mls/hr IV ASDIRECTED [facility] Metoprolol Tartrate (Lopressor) 12.5 mg PO BID [facility] Last Admin: 12/09/16 09:23 Dose: 12.5 mg Non-Formulary Medication (Ferrous Gluconate [Ferrous Gluconate]) 324 mg PO DAILY [facility] Ondansetron HCl (Zofran Odt) 4 mg PO Q6H PRN PRN Reason: nausea, able to take PO Pantoprazole Sodium (Protonix) 40 mg PO ACBREAKFAST [facility] Last Admin: 12/09/16 05:36 Dose: 40 mg Zolpidem Tartrate (Ambien) 5 mg PO BEDTIME PRN PRN Reason: Sleep Last Admin: 12/09/16 00:53 Dose: 5 mg Discontinued Medications Escitalopram Oxalate (Lexapro) 5 mg PO DAILY [facility] Sodium Chloride (Normal Saline) 1,000 mls @ 125 mls/hr IV .BOLUS ONE Stop: 12/09/16 06:57 Last Admin: 12/08/16 23:24 Dose: 125 mls/hr - Exam General: alert, oriented Neck: supple Lungs: Normal respiratory effort, Decreased breath sounds Cardiovascular: Irregular Rhythm Abdomen: bowel sounds present, soft, no tenderness, no distension Extremities: no edema - Problem List & Annotations (1) Dehydration SNOMED Code(s): 03383205 Code(s): E86.0 - DEHYDRATION Status: Acute Current Visit: Yes (2) Hypernatremia SNOMED Code(s): 67651165 Code(s): E87.0 - HYPEROSMOLALITY AND HYPERNATREMIA Status: Acute Current Visit: Yes (3) Renal failure (ARF), acute on chronic SNOMED Code(s): 739798594 Code(s): N17.9 - ACUTE KIDNEY FAILURE, UNSPECIFIED; N18.9 - CHRONIC KIDNEY DISEASE, UNSPECIFIED Status: Acute Current Visit: Yes Qualifiers: Acute renal failure type: unspecified Chronic kidney disease stage: unspecified stage Qualified Code(s): N17.9 - Acute kidney failure, unspecified ; N18.9 - Chronic kidney disease, unspecified (4) Weakness SNOMED Code(s): 64048662 Code(s): R53.1 - WEAKNESS Status: Acute Current Visit: No - Problem List Review Problem List Initiated/Reviewed/Updated: Yes - My Orders Last 24 Hours: My Active Orders 12/09/16 09:30 Sodium Chloride 0.45% 1,000 ml IV ASDIRECTED 12/09/16 21:00 Escitalopram [Lexapro] 5 mg PO BEDTIME 12/10/16 05:15 BASIC METABOLIC PANEL,BMP [CHEM] AM CBC WITH AUTO DIFF [HEME] AM - Plan Plan:: Acute renal failure and hypernatremia due to Dehydration due to poor oral intake The patient does have a history of renal failure due to hydronephrosis and obstructive stone That resolved after stone removal and stenting Baseline creatinine is around 1.4 Started the patient on IV fluid treatment Started with normal saline IV fluid - switch to 1/2 NS Recheck electrolytes in AM Adjust fluid as needed Consider renal ultrasound if no improvement in renal function Myeloproliferative disorder with bone marrow fibrosis Follow CBC after hydration Hyperbilirubinemia, elevated alkaline phosphatase improved Likely due to dehydration and myeloproliferative disorder Continue iron for anemia Chronic atrial fibrillation Elevated digoxin level Hold digoxin for now Continue metoprolol for rate control On no anticoagulation due to h/o hemoptysis Had episodes of falling, I will not start that now Weakness, weight loss get physical therapy and occupational therapy see the patient Sangeetha for depression DVT prophylaxis with subcutaneous heparin Follow for possible hemoptysis
[2016-12-09] MEDS: Sodium Chloride 0.45% 1,000 ML IV SCH ×2 (10:56→19:53)
[2016-12-09] MEDS ORDERED: FERROUS GLUCONATE 324 MG PO SCH (13:15)
[2016-12-09] MEDS: FERROUS GLUCONATE 324 MG PO SCH (17:45)
[2016-12-09] MEDS: Escitalopram 10 MG Tab PO SCH (23:09)
[2016-12-10] MEDS: Sodium Chloride 0.45% 1,000 ML IV SCH ×3 (04:04→20:18)
[2016-12-10] MEDS: Pantoprazole 40 MG Tab.CR PO SCH (06:11)
[2016-12-10] MEDS: Heparin Sodium 5,000 Units/ML Vial SUBCUT SCH ×3 (06:11→22:47)
--- NOTE | 2016-12-10 08:58 | PCM.PN ---
- General Info Date of Service: 12/10/16 Admission Dx/Problem (Free Text): Admission Diagnosis/Problem Admission Diagnosis/Problem Renal failure and Hypernatremia presented with not eating, not drinking and weakness. Found to have acute renal failure and hypernatremia. Subjective Update: He is feeling good today, appetite is better, No nausea or vomiting. slept well over the night and has no new complain Functional Status: Reports: pain controlled, tolerating diet, urinating - Review of Systems General: Reports: Appetite (good). Denies: Fever, Malaise, Chills HEENT: Denies: ear pain, headaches, sinus congestion, sore throat, visual changes Pulmonary: Denies: shortness of breath, cough, sputum, wheezing Cardiovascular: Denies: Chest Pain, Lightheadedness Gastrointestinal: Denies: Abdominal pain, Diarrhea, Difficulty swallowing, Nausea, Vomiting Genitourinary: Denies: dysuria, burning, urgency, flank pain Musculoskeletal: Denies: neck pain, shoulder pain, hand pain, back pain, joint pain Skin: Denies: cyanosis, bruising, pruritis, rash Neurological: Denies: Confusion, Dizziness, Headache, Tremors Psychiatric: Denies: confusion, anxiety, agitation - Patient Data Vitals - most recent: Last Vital Signs Temp 36.7 C 12/10/16 07:57 Pulse 88 12/10/16 07:57 Resp 20 12/10/16 07:57 BP 110/71 12/10/16 07:57 Pulse Ox 99 12/10/16 07:57 Weight - most recent: 75.098 kg I&O - last 24 hours: Intake & Output 12/09/16 12/10/16 12/10/16 22:59 06:59 14:59 Intake Total 1630 1000 Output Total 100 Balance 1630 900 Lab Results last 24 hrs: Laboratory Results - last 24 hr 12/10/16 12/10/16 Range/Units 06:24 06:24 WBC 11.9 H (5.0-10.0) 10^3/uL RBC 2.90 L (4.6-6.2) 10^6/uL Hgb 9.3 L (14.0-18.0) g/dL Hct 31.5 L (40.0-54.0) % MCV 108.6 H (80-100) fL MCH 32.1 (27.0-34.0) pg MCHC 29.5 L (33.0-35.0) g/dL Plt Count 138 L (150-450) 10^3/uL Neut % (Auto) 72.4 (42.2-75.2) % Lymph % (Auto) 17.9 L (20.5-50.1) % [place] % (Auto) 5.6 (2-8) % Eos % (Auto) 2.9 (1.0-3.0) % Baso % (Auto) 1.2 H (0.0-1.0) % Sodium 148 H (135-145) mmol/L Potassium 4.5 (3.6-5.0) mmol/L Chloride 118 H (101-111) mmol/L Carbon Dioxide 22.0 (21.0-31.0) mmol/L Anion Gap 12.5 BUN 41 H (7-18) mg/dL Creatinine 2.1 H (0.6-1.3) mg/dL Est Cr Clr Drug Dosing 29.30 mL/min Estimated GFR (MDRD) 30 Glucose 99 (74-105) mg/dL Calcium 8.8 (8.4-10.2) mg/dl Med Orders - Current: Current Medications Aspirin (Halfprin) 81 mg PO BRK [facility] Last Admin: 12/09/16 09:02 Dose: 81 mg Escitalopram Oxalate (Lexapro) 5 mg PO BEDTIME [facility] Last Admin: 12/09/16 23:09 Dose: 5 mg Heparin Sodium (Porcine) (Heparin Sodium) 5,000 units SUBCUT Q8HR [facility] Last Admin: 12/10/16 06:11 Dose: 5,000 units Sodium Chloride (Sodium Chloride 0.45%) 1,000 mls @ 125 mls/hr IV ASDIRECTED [facility] Last Admin: 12/10/16 04:04 Dose: 125 mls/hr Metoprolol Tartrate (Lopressor) 12.5 mg PO BID [facility] Last Admin: 12/09/16 23:10 Dose: 12.5 mg Ondansetron HCl (Zofran Odt) 4 mg PO Q6H PRN PRN Reason: nausea, able to take PO Pantoprazole Sodium (Protonix) 40 mg PO ACBREAKFAST [facility] Last Admin: 06/10/17 06:11 Dose: 40 mg Ferrous Gluconate 324 MgPt's Own Med 0 each PO WITHDINNER [facility] Last Admin: 12/09/16 17:45 Dose: 1 each Zolpidem Tartrate (Ambien) 5 mg PO BEDTIME PRN PRN Reason: Sleep Last Admin: 12/09/16 00:53 Dose: 5 mg Discontinued Medications Escitalopram Oxalate (Lexapro) 5 mg PO DAILY [facility] Last Admin: 12/09/16 10:30 Dose: Not Given Sodium Chloride (Normal Saline) 1,000 mls @ 125 mls/hr IV .BOLUS ONE Stop: 12/09/16 06:57 Last Admin: 12/08/16 23:24 Dose: 125 mls/hr Non-Formulary Medication (Ferrous Gluconate [Ferrous Gluconate]) 324 mg PO DAILY [facility] Last Admin: 12/09/16 13:17 Dose: Not Given Ferrous Gluconate 324 MgPt's Own Med 0 each PO DAILY [facility] Last Admin: 12/09/16 13:18 Dose: Not Given - Exam Quality Assessment: DVT prophylaxis. No: supplemental oxygen, urine catheter General: alert, oriented, cooperative, no acute distress HEENT: Pupils equal, Mucous membr. moist/pink Neck: supple, no JVD, no thyromegaly. No: lymphadenopathy Lungs: Clear to auscultation, Normal respiratory effort. No: Crackles, Wheezing Cardiovascular: Regular Rate, Regular Rhythm, Murmurs Abdomen: bowel sounds present, soft, no tenderness, no distension (Male) Exam: Deferred Back Exam: Normal Inspection, Full Range of Motion Extremities: no edema, no cyanosis, no calf tenderness Skin: warm, dry, intact Neurological: no new focal deficit Psy/Mental Status: alert, normal affect, normal mood - Problem List & Annotations (1) Dehydration SNOMED Code(s): 36232510 Code(s): E86.0 - DEHYDRATION Status: Acute Current Visit: Yes (2) Hypernatremia SNOMED Code(s): 81457269 Code(s): E87.0 - HYPEROSMOLALITY AND HYPERNATREMIA Status: Acute Current Visit: Yes (3) Renal failure (ARF), acute on chronic SNOMED Code(s): 586302240 Code(s): N17.9 - ACUTE KIDNEY FAILURE, UNSPECIFIED; N18.9 - CHRONIC KIDNEY DISEASE, UNSPECIFIED Status: Acute Current Visit: Yes Qualifiers: Acute renal failure type: unspecified Chronic kidney disease stage: unspecified stage Qualified Code(s): N17.9 - Acute kidney failure, unspecified ; N18.9 - Chronic kidney disease, unspecified (4) Weakness SNOMED Code(s): 70403066 Code(s): R53.1 - WEAKNESS Status: Acute Current Visit: No (5) A-fib SNOMED Code(s): 34639460 Code(s): I48.91 - UNSPECIFIED ATRIAL FIBRILLATION Status: Chronic Current Visit: No Qualifiers: Atrial fibrillation type: chronic Qualified Code(s): I48.2 - Chronic atrial fibrillation - Problem List Review Problem List Initiated/Reviewed/Updated: Yes - Plan Plan:: This is a 81 y/O M with past history of MDS, Chronic A-fib , CKD stage III/IV, admitted with weakness, Poor appetite, LIV and Hypernatremia 1. Acute renal failure: This is Pre-renal Azotemia due to Dehydration from poor oral intake The patient does have a history of renal failure due to hydronephrosis secondary to obstructive stone, which has been extracted and the ureteral stent was removed on renal function improved Baseline creatinine is around 1.2 -1.4 mg/dl -Continue IV 1/2 NS at 125 ml/hr -Renal function is Improving -Continue I/O recording -He is asymptotic and will not need acute [place] 2. Hypernatremia: This is also secondary to dehydration and poor oral intake -Will continue 1/2 NS at 125 ml/hr and sodium correction is appropriate -will recheck sodium again in the evening 3. Myeloproliferative disorder with bone marrow fibrosis - Follow CBC , hgb is stable and will transfuse if Hgb ,8 g/dl 4. Hyperbilirubinemia, elevated alkaline phosphatase - improvingd, Likely due to dehydration and myeloproliferative disorder Continue iron for anemia 5. Chronic atrial fibrillation: He was on Digoxin and Metoprolol for rate control - he had Elevated digoxin level and will Hold digoxin for now -Will Continue metoprolol for rate control - He is not on anticoagulation due to h/o hemoptysis - Had episodes of falling, I will not start anticoagulation 6. Weakness, weight loss - get physical therapy and occupational therapy see the patient 7. Depression: Continue Lexapro for depression 8. DVT prophylaxis with subcutaneous heparin Follow for possible hemoptysis
[2016-12-10] MEDS: Aspirin 81 MG Tab.EC PO SCH (09:54)
[2016-12-10] MEDS: Metoprolol Tartrate 25 MG Tab PO SCH ×2 (09:59→22:50)
[2016-12-10] MEDS: FERROUS GLUCONATE 324 MG PO SCH (17:57)
[2016-12-10] MEDS: Escitalopram 10 MG Tab PO SCH (22:44)
[2016-12-11] MEDS: Sodium Chloride 0.45% 1,000 ML IV SCH ×2 (04:50→12:59)
[2016-12-11] MEDS: Heparin Sodium 5,000 Units/ML Vial SUBCUT SCH ×3 (06:01→22:16)
[2016-12-11] MEDS: Pantoprazole 40 MG Tab.CR PO SCH (06:01)
[2016-12-11] MEDS: Aspirin 81 MG Tab.EC PO SCH (09:19)
[2016-12-11] MEDS: Metoprolol Tartrate 25 MG Tab PO SCH ×2 (09:20→22:15)
--- NOTE | 2016-12-11 12:04 | PCM.PN ---
- General Info Date of Service: 12/11/16 Admission Dx/Problem (Free Text): Admission Diagnosis/Problem Admission Diagnosis/Problem Renal failure and Hypernatremia He presented with poor eating and drinking and significant weakness.His labs on admission revealed acute renal failure and hypernatremia. Subjective Update: He is feeling good today, appetite is better, No nausea or vomiting. slept well over the night and has no new complain but coughing up blood tinged sputum ( occasionally) Functional Status: Reports: pain controlled, tolerating diet, ambulating, urinating - Review of Systems General: Reports: Weakness, Fatigue, Appetite (Improving). Denies: Fever, Chills, Night Sweats HEENT: Denies: headaches, sinus congestion, sore throat, visual changes Pulmonary: Reports: hemoptysis (occasional). Denies: shortness of breath, pleuritic chest pain, cough, sputum, wheezing Cardiovascular: Denies: Chest Pain, Dyspnea on Exertion, Edema, Lightheadedness Gastrointestinal: Reports: Decreased appetite. Denies: Abdominal pain, Diarrhea , Difficulty swallowing, Nausea, Vomiting Genitourinary: Denies: dysuria, frequency, burning, urgency, flank pain Skin: Denies: cyanosis, jaundice, bruising, pruritis, rash Neurological: Denies: Confusion, Headache, Tingling, Tremors Psychiatric: Denies: depression, anxiety - Patient Data Vitals - most recent: Last Vital Signs Temp 36.9 C 12/11/16 08:16 Pulse 46 L 12/11/16 09:20 Resp 20 12/11/16 09:17 BP 96/43 L 12/11/16 09:20 Pulse Ox 100 12/11/16 09:17 Weight - most recent: 75.098 kg I&O - last 24 hours: Intake & Output 12/10/16 12/11/16 12/11/16 22:59 06:59 14:59 Intake Total 1540 1025 Output Total 400 950 200 Balance 1140 75 -200 Lab Results last 24 hrs: Laboratory Results - last 24 hr 12/10/16 12/11/16 12/11/16 Range/Units 18:25 06:12 06:12 Sodium 142 143 (135-145) mmol/L Potassium 3.8 (3.6-5.0) mmol/L Chloride 112 H (101-111) mmol/L Carbon Dioxide 21.0 (21.0-31.0) mmol/L Anion Gap 13.8 BUN 31 H (7-18) mg/dL Creatinine 1.7 H (0.6-1.3) mg/dL Est Cr Clr Drug Dosing 36.20 mL/min Estimated GFR (MDRD) 39 Glucose 87 (74-105) mg/dL Calcium 8.7 (8.4-10.2) mg/dl Digoxin 1.9 (0-2.5) ng/ml Med Orders - Current: Current Medications Aspirin (Halfprin) 81 mg PO BRK [facility] Last Admin: 12/11/16 09:19 Dose: 81 mg Escitalopram Oxalate (Lexapro) 5 mg PO BEDTIME [facility] Last Admin: 12/10/16 22:44 Dose: 5 mg Heparin Sodium (Porcine) (Heparin Sodium) 5,000 units SUBCUT Q8HR [facility] Last Admin: 12/11/16 06:01 Dose: 5,000 units Sodium Chloride (Sodium Chloride 0.45%) 1,000 mls @ 125 mls/hr IV ASDIRECTED [facility] Last Admin: 12/11/16 04:50 Dose: 125 mls/hr Metoprolol Tartrate (Lopressor) 12.5 mg PO BID [facility] Last Admin: 12/11/16 09:20 Dose: Not Given Ondansetron HCl (Zofran Odt) 4 mg PO Q6H PRN PRN Reason: nausea, able to take PO Pantoprazole Sodium (Protonix) 40 mg PO ACBREAKFAST [facility] Last Admin: 12/11/16 06:01 Dose: 40 mg Ferrous Gluconate 324 MgPt's Own Med 0 each PO WITHDINNER [facility] Last Admin: 12/10/16 17:57 Dose: 1 each Zolpidem Tartrate (Ambien) 5 mg PO BEDTIME PRN PRN Reason: Sleep Last Admin: 12/09/16 00:53 Dose: 5 mg Discontinued Medications Escitalopram Oxalate (Lexapro) 5 mg PO DAILY [facility] Last Admin: 12/09/16 10:30 Dose: Not Given Sodium Chloride (Normal Saline) 1,000 mls @ 125 mls/hr IV .BOLUS ONE Stop: 12/09/16 06:57 Last Admin: 12/08/16 23:24 Dose: 125 mls/hr Non-Formulary Medication (Ferrous Gluconate [Ferrous Gluconate]) 324 mg PO DAILY [facility] Last Admin: 12/09/16 13:17 Dose: Not Given Ferrous Gluconate 324 MgPt's Own Med 0 each PO DAILY [facility] Last Admin: 12/09/16 13:18 Dose: Not Given - Exam Quality Assessment: DVT prophylaxis. No: supplemental oxygen, urine catheter General: alert, oriented, cooperative, no acute distress HEENT: Pupils equal, EOMI, Mucous membr. moist/pink Neck: supple, no JVD, no thyromegaly. No: lymphadenopathy Lungs: Clear to auscultation, Normal respiratory effort. No: Crackles, Wheezing Cardiovascular: Irregular Rhythm, Murmurs Abdomen: bowel sounds present, soft, no tenderness, no distension (Male) Exam: Deferred Back Exam: Normal Inspection, Full Range of Motion Extremities: no edema, no clubbing, no calf tenderness Skin: warm, dry, intact Neurological: no new focal deficit, normal gait, normal speech Psy/Mental Status: alert, normal affect, normal mood - Problem List & Annotations (1) Dehydration SNOMED Code(s): 02850279 Code(s): E86.0 - DEHYDRATION Status: Acute Current Visit: Yes (2) Hypernatremia SNOMED Code(s): 32602778 Code(s): E87.0 - HYPEROSMOLALITY AND HYPERNATREMIA Status: Acute Current Visit: Yes (3) Renal failure (ARF), acute on chronic SNOMED Code(s): 647691602 Code(s): N17.9 - ACUTE KIDNEY FAILURE, UNSPECIFIED; N18.9 - CHRONIC KIDNEY DISEASE, UNSPECIFIED Status: Acute Current Visit: Yes Qualifiers: Acute renal failure type: unspecified Chronic kidney disease stage: unspecified stage Qualified Code(s): N17.9 - Acute kidney failure, unspecified ; N18.9 - Chronic kidney disease, unspecified (4) Weakness SNOMED Code(s): 98111814 Code(s): R53.1 - WEAKNESS Status: Acute Current Visit: No (5) A-fib SNOMED Code(s): 45975911 Code(s): I48.91 - UNSPECIFIED ATRIAL FIBRILLATION Status: Chronic Current Visit: No Qualifiers: Atrial fibrillation type: chronic Qualified Code(s): I48.2 - Chronic atrial fibrillation - Problem List Review Problem List Initiated/Reviewed/Updated: Yes - Plan Plan:: This is a 81 y/O M with past history of MDS, Chronic A-fib , CKD stage III/IV, admitted with weakness, Poor appetite, LIV and Hypernatremia 1. Acute renal failure: This is Pre-renal Azotemia due to Dehydration from poor oral intake The patient does have a history of renal failure due to hydronephrosis secondary to obstructive stone, which has been extracted and the ureteral stent was removed on renal function improved Baseline creatinine is around 1.2 -1.4 mg/dl and creatinine today was at 1.7 mg/ dl -Will decrease IV 1/2 NS to 50 ml/hr [ was at 125 ml/hr] -,encourage oral intake -Renal function is Improving progressively -Continue I/O recording 2. Hypernatremia: This is also secondary to dehydration and poor oral intake -Will decrease 1/2 NS to 50 ml/hr [ was at 125 ml/hr ] and sodium correction is appropriate and now at normal level, sodium today was at 143 meq/L -BMPin AM 3. Myeloproliferative disorder with bone marrow fibrosis - Follow CBC , hgb is stable and will transfuse if Hgb ,8 g/dl -He will have PET scan in AM at [place] 4. Hyperbilirubinemia, elevated alkaline phosphatase - improvingd, Likely due to dehydration and myeloproliferative disorder -Continue iron for anemia 5. Chronic atrial fibrillation: He was on Digoxin and Metoprolol for rate control - he had Elevated digoxin level and digoxin is acceptable today and will start him at digoxin at 0.125 mg daily [ was at 0.25 mg daily] -Will Continue metoprolol for rate control - He is not on anticoagulation due to h/o hemoptysis - Had episodes of falling, I will not start anticoagulation -Will check Digoxin level in AM and titrate the dose 6. Weakness, weight loss - get physical therapy and occupational therapy to see the patient -He will be transferred to swing bed for strengthening 7. Depression: Continue Lexapro for depression 8. DVT prophylaxis with subcutaneous heparin Follow for possible hemoptysis
[2016-12-11] MEDS: FERROUS GLUCONATE 324 MG PO SCH (17:53)
[2016-12-11] MEDS: Escitalopram 10 MG Tab PO SCH (22:12)
--- NOTE | 2016-12-12 04:04 | PCM.DCSUM1 ---
Discharge Summary - Hospital Course Free Text/Narrative:: Mr. Brian is a 81 Y/O M with past Medical history of Hypertension, CKD stage III, MDS , admitted with Renal failure and Hypernatremia. He presented with poor eating and drinking and significant weakness.He was given IV fluids and sodium is normalized and renal function improved, He is still weak and he will need PET scan for MDS and for that he will go to [facility] today and will back to Swing Bed for strengthening HPI Initial Comments: Mr. Brian is a 81 Y/O M with past Medical history of Hypertension, CKD stage III, MDS , admitted with Renal failure and Hypernatremia. He presented with poor eating and drinking and significant weakness.His labs on admission revealed acute renal failure and hypernatremia.He was givenn IV fluids and sodium is normalized. He will need PET scan and for that he will go to [facility] Brief History: Mr. Brian is a 81 Y/O M with past Medical history of Hypertension, CKD stage III, MDS , admitted with Renal failure and Hypernatremia. He presented to ED with poor eating habit and drinking and significant weakness.His labs on admission revealed acute renal failure and hypernatremia.He was given IV fluids and sodium is normalized. He will need PET scan for MDS and for that he will go to [facility] - Discharge Data Discharge Date: 12/12/16 Discharge Disposition: Home, Self-Care 01 Condition: Good - Discharge Diagnosis/Problem(s) (1) Dehydration SNOMED Code(s): 78988275 ICD Code: E86.0 - DEHYDRATION Status: Acute Current Visit: Yes (2) Hypernatremia SNOMED Code(s): 82787579 ICD Code: E87.0 - HYPEROSMOLALITY AND HYPERNATREMIA Status: Acute Current Visit: Yes (3) Renal failure (ARF), acute on chronic SNOMED Code(s): 863224197 ICD Code: N17.9 - ACUTE KIDNEY FAILURE, UNSPECIFIED; N18.9 - CHRONIC KIDNEY DISEASE, UNSPECIFIED Status: Acute Current Visit: Yes Qualifiers: Acute renal failure type: unspecified Chronic kidney disease stage: unspecified stage Qualified Code(s): N17.9 - Acute kidney failure, unspecified ; N18.9 - Chronic kidney disease, unspecified (4) Weakness SNOMED Code(s): 75882951 ICD Code: R53.1 - WEAKNESS Status: Acute Current Visit: No (5) A-fib SNOMED Code(s): 80314697 ICD Code: I48.91 - UNSPECIFIED ATRIAL FIBRILLATION Status: Chronic Current Visit: No Qualifiers: Atrial fibrillation type: chronic Qualified Code(s): I48.2 - Chronic atrial fibrillation - Patient Summary/Data Hospital Course: Mr. Brian is a 81 Y/O M with past Medical history of Hypertension, CKD stage III, MDS , admitted on 12/09/16 with Renal failure and Hypernatremia. His appetite was also extremely poor and not drinkingand also had significant weakness.He was given IV fluids and sodium is normalized and renal function improved. His Digoxin level was also elevated and His Medication was placed on hold, and after normalization the dose of Digoxin decresed from 0.250 mg to 0.125 mg daily. Need to follow regularly Digoxin level. He is still weak and he will need PET scan for MDS and for that reasonhe will go to [facility] today and will back to Swing Bed for strengthening. - Patient Instructions Diet: Regular Diet as Tolerated Activity: As Tolerated Driving: Do Not Drive Showering/Bathing: May Shower Notify Provider of: Fever, Nausea and/or Vomiting - Discharge Plan Prescriptions/Med Rec: Digoxin [Lanoxin] 125 mcg PO DAILY@0800 #30 tablet Home Medications: Home Meds Aspirin [Halfprin] 81 mg PO BRK 07/01/16 [History] Acetaminophen 500 mg PO Q6H PRN 10/28/16 [History] Ferrous Gluconate 324 mg PO DAILY 10/28/16 [History] Pantoprazole [ProTONIX] 40 mg PO ACBREAKFAST 10/28/16 [History] Metoprolol Tartrate [Lopressor] 12.5 mg PO BID #0 11/15/16 [Rx] Escitalopram Oxalate [Lexapro] 5 mg PO BEDTIME 12/09/16 [History] Digoxin [Lanoxin] 125 mcg PO DAILY@0800 #30 tablet 12/12/16 [Rx] Patient Handouts: Hypernatremia, [id number], Dehydration, Elderly, Rehydration, Elderly, Failure to Thrive, Adult Referrals: PCP,Unobtain [Ordering Only Provider] - - Discharge Summary/Plan Comment DC Time >30 min.: Yes Discharge Summary/Plan Comment: Impression and Plan: This is a 81 y/O M with past history of MDS, Chronic A-fib , CKD stage III/IV, admitted with weakness, Poor appetite, LIV and Hypernatremia 1. Acute renal failure: This is Pre-renal Azotemia due to Dehydration from poor oral intake and relative Hypotension The patient does have a history of renal failure due to hydronephrosis secondary to obstructive stone, which has been extracted and the ureteral stent was removed on renal function improved -Baseline creatinine is around 1.2 -1.4 mg/dl and creatinine on 12/11/16 was at 1.7 mg/dl, labs for today in in process -Will stop IV 1/2 NS [ was getting at 50 ml/hr] -Will encourage oral intake -Renal function is Improving progressively -Will Not Need acute [employer] 2. Hypernatremia: This is also secondary to dehydration and poor oral intake -Will stop 1/2 NS , and sodium correction is appropriate and now at normal level, sodium on 12/11 was at 143 meq/L -BMP in AM ( Drawn and in Process) 3. Myeloproliferative disorder with bone marrow fibrosis - Follow CBC , hgb is stable and will transfuse if Hgb is < 8 g/dl -He will have PET scan This AM at [place] and after that Decision for treatment will be made by Hem/Onc Team 4. Hyperbilirubinemia, elevated alkaline phosphatase - improvingd, Likely due to dehydration and myeloproliferative disorder -Continue iron for anemia 5. Chronic atrial fibrillation: He was on Digoxin and Metoprolol for rate control - he had Elevated digoxin level and digoxin is acceptable on 12/11 and now he is digoxin at 0.125 mg daily [ Initially was at 0.25 mg daily] -Will Continue metoprolol for rate control - He is not on anticoagulation due to h/o hemoptysis - Had episodes of falling, and will not start anticoagulation -Re- check Digoxin level for this AM and titrate the dose of Digoxin if needed 6. Weakness, weight loss - physical therapy and occupational therapy to see the patient once he comes back from [place] -He will be transferred to swing bed for strengthening after he comes back afte the PET scan at [facility] and seen by Hem/Onc 7. Depression: Continue Lexapro for depression 8. DVT prophylaxis with subcutaneous heparin Follow for possible hemoptysis 9. Disposition: He will be discharge today, as he needs to go for PET scan at [facility] - General Info Date of Service: 12/12/16 Admission Dx/Problem (Free Text: Admission Diagnosis/Problem Admitted with Acute Renal failure and Hypernatremia. He presented to ED with poor eating habit and not drinking with significant weakness.His labs on admission revealed acute renal failure and hypernatremia. Subjective Update: He is feeling good today, appetite is still not good, No nausea or vomiting. slept well over the night and has no new complain but coughing up blood tinged sputum ( occasionally) . He will be seen and evaluated by Hem/Onc at [facility]. Functional Status: Reports: pain controlled, tolerating diet, ambulating, urinating - Review of Systems General: Reports: Appetite (Poor). Denies: Fever, Chills HEENT: Denies: ear pain, headaches, sinus congestion, sore throat, visual changes Pulmonary: Reports: sputum (Occasionally Blood Tinged). Denies: shortness of breath, pleuritic chest pain, cough Cardiovascular: Denies: Chest Pain, Dyspnea on Exertion, Lightheadedness Gastrointestinal: Reports: Decreased appetite. Denies: Abdominal pain, Difficulty swallowing, Nausea, Vomiting Genitourinary: Denies: dysuria, frequency, burning, urgency, flank pain Musculoskeletal: Denies: neck pain, shoulder pain, arm pain, joint pain Skin: Denies: cyanosis, jaundice, bruising, pruritis, rash Neurological: Denies: Confusion, Tingling, Tremors, Trouble Speaking Psychiatric: Denies: depression, anxiety - Patient Data Vitals - Most Recent: Last Vital Signs Temp 36.8 C 12/11/16 23:00 Pulse 48 L 12/11/16 22:15 Resp 20 12/11/16 23:00 BP 112/65 12/11/16 23:00 Pulse Ox 100 12/11/16 23:00 Weight - Most Recent: 75.098 kg I&O - Last 24 hours: Intake & Output 12/11/16 12/11/16 12/12/16 14:59 22:59 06:59 Intake Total 1060 790 224 Output Total 750 525 400 Balance 310 265 -176 Lab Results - Last 24 hrs: Laboratory Results - last 24 hr 12/11/16 12/11/16 Range/Units 06:12 06:12 Sodium 143 (135-145) mmol/L Potassium 3.8 (3.6-5.0) mmol/L Chloride 112 H (101-111) mmol/L Carbon Dioxide 21.0 (21.0-31.0) mmol/L Anion Gap 13.8 BUN 31 H (7-18) mg/dL Creatinine 1.7 H (0.6-1.3) mg/dL Est Cr Clr Drug Dosing 36.20 mL/min Estimated GFR (MDRD) 39 Glucose 87 (74-105) mg/dL Calcium 8.7 (8.4-10.2) mg/dl Digoxin 1.9 (0-2.5) ng/ml Med Orders - Current: Current Medications Aspirin (Halfprin) 81 mg PO BRK [facility] Last Admin: 12/11/16 09:19 Dose: 81 mg Digoxin (Lanoxin) 125 mcg PO DAILY@0800 [facility] Escitalopram Oxalate (Lexapro) 5 mg PO BEDTIME [facility] Last Admin: 12/11/16 22:12 Dose: 5 mg Heparin Sodium (Porcine) (Heparin Sodium) 5,000 units SUBCUT Q8HR [facility] Last Admin: 12/11/16 22:16 Dose: 5,000 units Sodium Chloride (Sodium Chloride 0.45%) 1,000 mls @ 50 mls/hr IV ASDIRECTED [facility] Last Admin: 12/11/16 12:59 Dose: 50 mls/hr Metoprolol Tartrate (Lopressor) 12.5 mg PO BID [facility] Last Admin: 12/11/16 22:15 Dose: Not Given Ondansetron HCl (Zofran Odt) 4 mg PO Q6H PRN PRN Reason: nausea, able to take PO Pantoprazole Sodium (Protonix) 40 mg PO ACBREAKFAST [facility] Last Admin: 12/11/16 06:01 Dose: 40 mg Ferrous Gluconate 324 MgPt's Own Med 0 each PO WITHDINNER [facility] Last Admin: 12/11/16 17:53 Dose: 1 each Zolpidem Tartrate (Ambien) 5 mg PO BEDTIME PRN PRN Reason: Sleep Last Admin: 12/09/16 00:53 Dose: 5 mg Discontinued Medications Escitalopram Oxalate (Lexapro) 5 mg PO DAILY [facility] Last Admin: 12/09/16 10:30 Dose: Not Given Sodium Chloride (Normal Saline) 1,000 mls @ 125 mls/hr IV .BOLUS ONE Stop: 12/09/16 06:57 Last Admin: 12/08/16 23:24 Dose: 125 mls/hr Non-Formulary Medication (Ferrous Gluconate [Ferrous Gluconate]) 324 mg PO DAILY [facility] Last Admin: 12/09/16 13:17 Dose: Not Given Ferrous Gluconate 324 MgPt's Own Med 0 each PO DAILY [facility] Last Admin: 12/09/16 13:18 Dose: Not Given - Exam Quality Assessment: Reports: DVT prophylaxis. Denies: supplemental oxygen, urine catheter General: Reports: alert, oriented, cooperative, no acute distress HEENT: Reports: Pupils equal, Mucous membr. moist/pink Neck: Reports: supple, no JVD, no thyromegaly. Denies: lymphadenopathy Lungs: Reports: Clear to auscultation, Normal respiratory effort. Denies: Crackles, Wheezing Cardiovascular: Reports: Irregular Rhythm, Murmurs Abdomen: Reports: bowel sounds present, soft, no tenderness, no distension (Male) Exam: Deferred Rectal (Males) Exam: Deferred Back Exam: Reports: Normal Inspection, Full Range of Motion Extremities: Reports: no edema, no clubbing, no calf tenderness Skin: Reports: warm, dry, intact Neurological: Reports: no new focal deficit, normal gait, normal speech Psy/Mental Status: Reports: alert, normal affect, normal mood *Q Meaningful Use (DIS) - VTE *Q VTE Criteria *Q: - Stroke *Q Stroke Criteria *Q: - AMI *Q AMI Criteria *Q:
[2016-12-12] MEDS: Heparin Sodium 5,000 Units/ML Vial SUBCUT SCH (05:18)
[2016-12-12] MEDS: Pantoprazole 40 MG Tab.CR PO SCH (05:18)
[2016-12-12] MEDS ORDERED: Digoxin 125 MCG Tab PO SCH (08:00)
[2016-12-12 08:27] VITALS: BP 110/54
== END 2016-12-12 08:15 | disposition home or self-care (01) | DRG 683 ==
LOC: DL.ED 18:52 → DL.MS 23:10 → UNDOADMIN 23:10 → DL.MS 12-09 00:29
PROVIDERS: ADMIT Internal Medicine; ATTEND Internal Medicine
DX: N17.9 Acute kidney failure, unspecified (principal); N18.9 Chronic kidney disease, unspecified; E87.0 Hyperosmolality and hypernatremia; C94.6 Myelodysplastic disease, not elsewhere classified; N18.3 Chronic kidney disease, stage 3 (moderate); E86.0 Dehydration; I12.9 Hypertensive chronic kidney disease with stage 1 through stage 4 chronic kidney disease, or unspecified chronic kidney disease; I48.2 Chronic atrial fibrillation; E80.6 Other disorders of bilirubin metabolism; F32.9 Major depressive disorder, single episode, unspecified; M19.90 Unspecified osteoarthritis, unspecified site
CPT/HCPCS: 36415; 71020; 80048; 80053; 80076; 80162; 81001; 83605; 83615; 83735; 84295; 85025; 87040; 96365; 96366; 97161-GP; 97165-GO; 99284; A9270-GY; J1644; J7030

== ENCOUNTER 2016-12-12 14:47 | Inpatient (IN) | payer MEDICARE, OTHER ==
[2016-12-12] MEDS ORDERED: Docusate Sodium 100 MG Cap PO PRN (19:08)
--- NOTE | 2016-12-12 19:23 | PCM.HP ---
H&P History of Present Illness - General Date of Service: 12/12/16 Admit Problem/Dx: Admission Diagnosis/Problem Admission Diagnosis/Problem Weakness Source of Information: Patient, Old Records - History of Present Illness Initial Comments - Free Text/Narative: Mr. Brian is a 81 Y/O M with past Medical history of Hypertension, CKD stage III, MDS. He presented with poor eating and drinking and significant weakness. He was noted to have acute Renal failure and Hypernatremia He was admitted to acute care. He was given IV fluids and sodium is normalized and renal function improved. Initially his digoxin level was high, dig was on hold. On 12/12 he was discharged from acute care and followed up at the clinic. He had appointment with pulmonary medicine, a PET scan was performed. Per verbal report from the pulmonary medicine provider there was an area of haziness, but no hypermetabolic areas noted compatible with malignancy. The patient is still significantly weak, presented to swing bed for admission for further physical therapy. - Related Data Allergies/Adverse Reactions: Allergies Allergy/AdvReac Type Severity Reaction Status Date / Time No Known Allergies Allergy Verified 12/12/16 15:41 Home Medications: Home Meds Aspirin [Halfprin] 81 mg PO BRK 07/01/16 [History] Acetaminophen 500 mg PO Q6H PRN 10/28/16 [History] Ferrous Gluconate 324 mg PO WITHDINNER 10/28/16 [History] Pantoprazole [ProTONIX] 40 mg PO ACBREAKFAST 10/28/16 [History] Metoprolol Tartrate [Lopressor] 12.5 mg PO BID #0 11/15/16 [Rx] Escitalopram Oxalate [Lexapro] 5 mg PO BEDTIME 12/09/16 [History] Digoxin [Lanoxin] 125 mcg PO WITHBREAKFAST 12/12/16 [History] Past Medical History HEENT History: Reports: Cataract, Hard of Hearing, Impaired Vision Other HEENT History: bilateral catarct surgery,[place] right ear Cardiovascular History: Reports: Afib Respiratory History: Reports: Pneumonia, Recurrent Gastrointestinal History: Reports: Bowel Obstruction Genitourinary History: Reports: Renal Calculus Musculoskeletal History: Reports: Osteoarthritis Other Musculoskeletal History: 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 Neurological History: Reports: None Psychiatric History: Reports: None Endocrine/Metabolic History: Reports: None Hematologic History: Reports: Anemia, Blood Transfusion(s) Immunologic History: Reports: None Oncologic (Cancer) History: Reports: None Dermatologic History: Reports: Other (See Below) Other Dermatologic History: steri strips to left forearm due top falling on dresser - Infectious Disease History Infectious Disease History: Reports: Measles, Mumps - Past Surgical History HEENT Surgical History: Reports: Cataract Surgery Cardiovascular Surgical History: Reports: None Respiratory Surgical History: Reports: None GI Surgical History: Reports: Appendectomy, Colonoscopy, EGD Male Surgical History: Reports: None Endocrine Surgical History: Reports: None Neurological Surgical History: Reports: None Musculoskeletal Surgical History: Reports: Amputation, Arthroscopic Knee, Other (See Below) Dermatological Surgical History: Reports: None Social & Family History - Family History Family Medical History: Noncontributory Cardiac: Reports: Afib GI: Reports: None Psychiatric: Reports: None Endocrine/Metabolic: Reports: None - Tobacco Use Smoking Status *Q: Former Smoker Years of Tobacco use: 30 Packs/Tins Daily: 1 Used Tobacco, but Quit: Yes Month Tobacco Last Used: December Second Hand Smoke Exposure: No - Caffeine Use Caffeine Use: Reports: None - Recreational Drug Use Recreational Drug Use: No H&P Review of Systems - Review of Systems: Review Of Systems: See Below General: Denies: Fever Pulmonary: Denies: Shortness of Breath Cardiovascular: Denies: Chest Pain Gastrointestinal: Denies: Abdominal Pain Psychiatric: Denies: Confusion Exam - Exam Exam: See Below - Vital Signs Weight: 75.098 kg - Exam Quality Assessment: No: Supplemental Oxygen General: Alert, Oriented Neck: Supple Lungs: Clear to Auscultation, Normal Respiratory Effort Cardiovascular: Regular Rate, Regular Rhythm Abdomen: Normal Bowel Sounds, Soft Extremities: Edema (trace) Skin: Warm, Dry Neuro Extensive - Mental Status: Alert, Oriented x3, Normal Mood/Affect, Normal Cognition Psychiatric: Alert, Normal Affect, Normal Mood *Q Meaningful Use (ADM) - VTE *Q VTE Criteria *Q: - Stroke *Q Stroke Criteria *Q: - AMI *Q AMI Criteria *Q: - Problem List (1) Weakness SNOMED Code(s): 37431568 ICD Code: R53.1 - WEAKNESS Status: Acute Current Visit: No Problem List Initiated/Reviewed/Updated: Yes Orders Last 24hrs: Active Orders 24 hr Category Date Time Status Patient Status [ADT] Routine ADT 12/12/16 19:08 Active Ambulate [RC] PER UNIT ROUTINE Care 12/12/16 19:09 Active Antiembolic Devices [RC] PER UNIT ROUTINE Care 12/12/16 19:10 Active Oxygen Therapy [RC] PRN Care 12/12/16 19:08 Active Up With Assistance [RC] ASDIRECTED Care 12/12/16 19:08 Active VTE/DVT Education [RC] PER UNIT ROUTINE Care 12/12/16 19:08 Active Vital Signs [RC] QSHIFT Care 12/12/16 19:08 Active OT Evaluation and Treatment [CONS] Routine Cons 12/12/16 19:08 Active PT Evaluation and Treatment [CONS] Routine Cons 12/12/16 19:08 Active Regular Diet [DIET] Diet 12/12/16 Breakfast Active Acetaminophen [Tylenol] Med 12/12/16 19:08 Active 650 mg PO Q4H PRN Aspirin [Halfprin] Med 12/12/16 19:15 Active 81 mg PO BRK Digoxin [Lanoxin] Med 12/13/16 08:00 Active 125 mcg PO WITHBREAKFAST Docusate Sodium [Colace] Med 12/12/16 19:08 Active 100 mg PO BID PRN Escitalopram [Lexapro] Med 12/12/16 21:00 Active 5 mg PO BEDTIME Ferrous Gluconate [Ferrous Gluconate] Med 12/13/16 18:00 Pending 324 mg PO WITHDINNER Heparin Sodium Med 12/12/16 22:00 Active 5,000 units SUBCUT Q8HR Pantoprazole [ProTONIX] Med 12/13/16 06:00 Active 40 mg PO ACBREAKFAST Zolpidem [Ambien] Med 12/12/16 19:08 Active 5 mg PO BEDTIME PRN Antiembolic Hose [OM.PC] Per Unit Routine Oth 12/12/16 19:09 Ordered Resuscitation Status Routine Resus Stat 12/12/16 19:08 Ordered Medication Orders Acetaminophen (Tylenol) 650 mg PO Q4H PRN PRN Reason: Pain (Mild 1-3)/fever Aspirin (Halfprin) 81 mg PO BRK DANYA Digoxin (Lanoxin) 125 mcg PO WITHBREAKFAST DANYA Docusate Sodium (Colace) 100 mg PO BID PRN PRN Reason: Constipation Escitalopram Oxalate (Lexapro) 5 mg PO BEDTIME DANYA Heparin Sodium (Porcine) (Heparin Sodium) 5,000 units SUBCUT Q8HR [facility] Non-Formulary Medication (Ferrous Gluconate [Ferrous Gluconate]) 324 mg PO WITHDINNER [facility] Pantoprazole Sodium (Protonix) 40 mg PO ACBREAKFAST [facility] Zolpidem Tartrate (Ambien) 5 mg PO BEDTIME PRN PRN Reason: Sleep Assessment/Plan Comment:: Mr. Brian is a 81 Y/O M with past Medical history of Hypertension, CKD stage III, MDS. He presented with poor eating and drinking and significant weakness. He was noted to have acute Renal failure and Hypernatremia He was admitted to acute care. He was given IV fluids and sodium is normalized and renal function improved. Initially his digoxin level was high, dig was on hold. On 12/12 he was discharged from acute care and followed up at the clinic. He had appointment with pulmonary medicine, a PET scan was performed. Per verbal report from the pulmonary medicine provider there was an area of haziness, but no hypermetabolic areas noted compatible with malignancy. The patient is still significantly weak, presented to swing bed for admission for further physical therapy. This is a 81 y/O M with past history of MDS, Chronic A-fib , CKD stage III/IV, admitted with weakness, Poor appetite, LIV and Hypernatremia Acute renal failure: His Pre-renal Azotemia due to Dehydration from poor oral intake and relative Hypotension has improved. Will encourage oral intake Recheck Renal function periodically Hypernatremia This is also secondary to dehydration and poor oral intake Resolved Follow periodically Myeloproliferative disorder with bone marrow fibrosis Follow periodically CBC , For now hgb is stable Consider to transfuse if Hgb is < 8 g/dl Follow-up as outpatient with the Hem/Onc Team Chronic atrial fibrillation: He was on Digoxin and Metoprolol for rate control Initially digoxin level was elevated but then normalized Resume digoxin at 0.125 mg daily dose Due to low blood pressure will hold metoprolol Weakness, weight loss physical therapy and occupational therapy to see the patient Depression: Continue Lexapro for depression DVT prophylaxis with subcutaneous heparin
[2016-12-12] MEDS: Aspirin 81 MG Tab.EC PO SCH (19:37)
[2016-12-12] MEDS: Escitalopram 10 MG Tab PO SCH (21:40)
[2016-12-12] MEDS: Heparin Sodium 5,000 Units/ML Vial SUBCUT SCH (21:40)
[2016-12-13] MEDS: Pantoprazole 40 MG Tab.CR PO SCH (06:25)
[2016-12-13] MEDS: Heparin Sodium 5,000 Units/ML Vial SUBCUT SCH ×3 (06:25→21:12)
[2016-12-13] MEDS: Digoxin 125 MCG Tab PO SCH (08:58)
[2016-12-13] MEDS: Aspirin 81 MG Tab.EC PO SCH (08:58)
[2016-12-13] MEDS: FERROUS GLUCONATE 324 MG PO SCH (17:36)
[2016-12-13] MEDS: Escitalopram 10 MG Tab PO SCH (21:09)
[2016-12-14] MEDS: Pantoprazole 40 MG Tab.CR PO SCH (05:57)
[2016-12-14] MEDS: Heparin Sodium 5,000 Units/ML Vial SUBCUT SCH (05:59)
[2016-12-14] MEDS: Aspirin 81 MG Tab.EC PO SCH (08:40)
[2016-12-14] MEDS: Digoxin 125 MCG Tab PO SCH (10:10)
--- NOTE | 2016-12-14 12:27 | PCM.SN ---
- Free Text/Narrative Note: has a h/o hemoptysis now developing bloody nose will stop sq heparin dvt prophylaxis with mobilization
[2016-12-14] MEDS: FERROUS GLUCONATE 324 MG PO SCH (17:12)
[2016-12-14] MEDS: Escitalopram 10 MG Tab PO SCH (20:39)
[2016-12-15] MEDS: Pantoprazole 40 MG Tab.CR PO SCH (05:26)
[2016-12-15] MEDS: Aspirin 81 MG Tab.EC PO SCH (08:32)
[2016-12-15] MEDS: Digoxin 125 MCG Tab PO SCH (08:41)
--- NOTE | 2016-12-15 12:50 | PN ---
DATE: 12/15/2016 SUBJECTIVE: Mr. Snehal Trujillo is an 81-year-old male with medical history significant for hypertension, hyperlipidemia, chronic kidney disease, myelodysplastic syndrome, increasing weakness, and tiredness with acute renal failure and hyponatremia admitted to the hospital to the swing bed for continued physical therapy and occupational therapy. For the past 24 hours, the patient continues to have weakness and tiredness aggravated on ambulation, relieved with rest, not associated with any nausea or vomiting. Denies any fevers or chills. No complaints of chest pain. No complaints of shortness of breath. No complaints of abdominal pain. No acute events overnight noted. REVIEW OF SYSTEMS: Cardiovascular, respiratory, gastrointestinal, neurology, constitutional were all evaluated. PHYSICAL EXAMINATION: Vital signs: Temperature of 98.9, pulse of 59, blood pressure 120/58, respiratory rate of 16, saturating at 94% on room air. GENERAL: The patient is well oriented to time, place, and person. Follows commands spontaneously. Cardiovascular: S1, S2 heard with normal intensity. No gallops. Respiratory: Clear to auscultation bilaterally. No wheeze. No crepitations. Abdomen: Soft. Bowel sounds positive. Nontender. No rigidity. Extremities: No edema in bilateral lower extremities. Neurology: No gross focal neurological deficits. MEDICATIONS: Reviewed. Continue with: 1. Tylenol 650 mg every 4 hours as needed for pain. 2. Aspirin 81 mg daily. 3. Digoxin 125 mcg daily. 4. Docusate sodium 100 mg twice a day. 5. Lexapro 5 mg at bedtime. 6. Protonix 40 mg daily. 7. Ambien 5 mg at bedtime. 8. Heparin 5000 subcu every 8 hourly. LABORATORY DATA: 1. Reviewed. Hemoglobin 7.5, hematocrit 25.3, platelet count 138, and WBC 10. 2. Sodium 143, potassium 4.4, chloride 113, BUN 26, creatinine 1.6. Glucose 90. ASSESSMENT: 1. Anemia. 2. Myelodysplastic syndrome. 3. Hypertension. 4. Hyperlipidemia. 5. Renal failure. PLAN: 1. Anemia. The patient noted to have a hemoglobin down to 7.5. The patient had received blood transfusions in the past without any complications. Informed consent is obtained for blood transfusion today explaining the risks, benefits, and complications of blood transfusion and the patient wants to go ahead and get blood transfusion. We will transfuse at least 2 units of packed red blood cells. We will repeat a CBC in a.m. His anemia is mainly resulting from his myelodysplastic syndrome. He is also noted to have thrombocytopenia with platelet count of 138. 2. Hypertension. The patient's blood pressure seems to be in acceptable range. Continue with current medications. 3. DVT prophylaxis. The patient was noted to have epistaxis, anemia, and thrombocytopenia, so we had to hold off his subcutaneous heparin. The patient will be encouraged to ambulate around. Use DIMITRIS hose for DVT prophylaxis. 4. Renal failure. The patient's creatinine is at 1.6 and BUN of 26. Hopefully, this will have with blood transfusion. We will recheck BMP in a.m. Avoid any nephrotoxic agents. Dose adjust medications for renal function. [facility] /[id number]
[2016-12-15] MEDS: FERROUS GLUCONATE 324 MG PO SCH (17:39)
[2016-12-15] MEDS: Escitalopram 10 MG Tab PO SCH (20:24)
[2016-12-16] MEDS: Pantoprazole 40 MG Tab.CR PO SCH (05:37)
[2016-12-16] MEDS: Digoxin 125 MCG Tab PO SCH (09:34)
[2016-12-16] MEDS: Aspirin 81 MG Tab.EC PO SCH (09:34)
[2016-12-16] MEDS: FERROUS GLUCONATE 324 MG PO SCH (17:26)
[2016-12-16] MEDS: Escitalopram 10 MG Tab PO SCH (20:48)
[2016-12-17] MEDS: Pantoprazole 40 MG Tab.CR PO SCH (06:01)
[2016-12-17] MEDS: Digoxin 125 MCG Tab PO SCH (08:47)
[2016-12-17] MEDS: Aspirin 81 MG Tab.EC PO SCH (08:47)
[2016-12-17] MEDS: FERROUS GLUCONATE 324 MG PO SCH (17:26)
[2016-12-17] MEDS: Escitalopram 10 MG Tab PO SCH (21:41)
[2016-12-18] MEDS: Pantoprazole 40 MG Tab.CR PO SCH (05:50)
[2016-12-18] MEDS: Aspirin 81 MG Tab.EC PO SCH (08:58)
[2016-12-18] MEDS: Digoxin 125 MCG Tab PO SCH (08:58)
[2016-12-18] MEDS: FERROUS GLUCONATE 324 MG PO SCH (17:34)
[2016-12-18] MEDS: Escitalopram 10 MG Tab PO SCH (20:19)
[2016-12-19] MEDS: Pantoprazole 40 MG Tab.CR PO SCH (05:37)
[2016-12-19] MEDS: Aspirin 81 MG Tab.EC PO SCH (09:17)
[2016-12-19] MEDS: Digoxin 125 MCG Tab PO SCH (09:17)
[2016-12-19] MEDS: FERROUS GLUCONATE 324 MG PO SCH (17:12)
[2016-12-19] MEDS: Escitalopram 10 MG Tab PO SCH (20:34)
[2016-12-20] MEDS: Pantoprazole 40 MG Tab.CR PO SCH (06:07)
[2016-12-20] MEDS: Aspirin 81 MG Tab.EC PO SCH (09:47)
[2016-12-20] MEDS: Digoxin 125 MCG Tab PO SCH (09:47)
[2016-12-20] MEDS: FERROUS GLUCONATE 324 MG PO SCH (17:59)
[2016-12-20] MEDS: Escitalopram 10 MG Tab PO SCH (20:34)
[2016-12-21] MEDS: Pantoprazole 40 MG Tab.CR PO SCH (05:36)
[2016-12-21] MEDS: Digoxin 125 MCG Tab PO SCH (08:32)
[2016-12-21] MEDS: Aspirin 81 MG Tab.EC PO SCH (08:32)
[2016-12-21] MEDS: FERROUS GLUCONATE 324 MG PO SCH (18:06)
[2016-12-21] MEDS: Escitalopram 10 MG Tab PO SCH (21:15)
[2016-12-22] MEDS: Pantoprazole 40 MG Tab.CR PO SCH (06:29)
[2016-12-22] MEDS: Digoxin 125 MCG Tab PO SCH (09:40)
[2016-12-22] MEDS: Acetaminophen 325 MG Tab PO PRN (09:41)
[2016-12-22] MEDS: Aspirin 81 MG Tab.EC PO SCH (09:41)
--- NOTE | 2016-12-22 11:27 | PCM.PN ---
- General Info Date of Service: 12/22/16 Admission Dx/Problem (Free Text): Admission Diagnosis/Problem Admission Diagnosis/Problem Weakness Subjective Update: Patient is still complaining about weakness but denies any other symptoms. He denies fever, chills, nausea, vomiting, chest pain, cough, shortness breath, abdominal pain, urinary symptoms, lower extremity edema, any other concerns. - Patient Data Vitals - most recent: Last Vital Signs Temp 37.9 C 12/22/16 07:00 Pulse 66 12/22/16 09:40 Resp 20 12/22/16 07:00 BP 126/64 12/22/16 07:00 Pulse Ox 96 12/22/16 07:00 Weight - most recent: 83.28 kg I&O - last 24 hours: Intake & Output 12/21/16 12/22/16 12/22/16 22:59 06:59 14:59 Intake Total 840 100 Balance 840 100 Lab Results last 24 hrs: Laboratory Results - last 24 hr 12/22/16 12/22/16 Range/Units 06:40 06:40 WBC 10.8 H (5.0-10.0) 10^3/uL RBC 2.97 L (4.6-6.2) 10^6/uL Hgb 9.4 L (14.0-18.0) g/dL Hct 31.1 L (40.0-54.0) % MCV 104.7 H (80-100) fL MCH 31.6 (27.0-34.0) pg MCHC 30.2 L (33.0-35.0) g/dL Plt Count 267 (150-450) 10^3/uL Neut % (Auto) 79.3 H (42.2-75.2) % Lymph % (Auto) 12.3 L (20.5-50.1) % Young % (Auto) 6.3 (2-8) % Eos % (Auto) 1.9 (1.0-3.0) % Baso % (Auto) 1.2 H (0.0-1.0) % Add Manual Diff Yes Neutrophils % (Manual) 58 % Band Neutrophils % 13 % Lymphocytes % (Manual) 15 % Monocytes % (Manual) 3 % Eosinophils % (Manual) 3 % Basophils % (Manual) 1 Metamyelocytes % 1 Myelocytes % 6 Nucleated RBCs 4 /100WBC Atypical Lymphocytes Few Toxic Granulation 2+ moderate Platelet Estimate Adequate Macrocytosis 2+ moderate Sodium 138 (135-145) mmol/L Potassium 4.1 (3.6-5.0) mmol/L Chloride 106 (101-111) mmol/L Carbon Dioxide 21.0 (21.0-31.0) mmol/L Anion Gap 15.1 BUN 20 H (7-18) mg/dL Creatinine 1.3 (0.6-1.3) mg/dL Est Cr Clr Drug Dosing 52.49 mL/min Estimated GFR (MDRD) 53 BUN/Creatinine Ratio 15.38 Glucose 91 (74-105) mg/dL Calcium 8.8 (8.4-10.2) mg/dl Total Bilirubin 3.1 H (0.2-1.0) mg/dL AST 67 H (10-42) IU/L ALT 42 (10-60) IU/L Alkaline Phosphatase 451 H (42-121) IU/L Total Protein 7.0 (6.7-8.2) g/dl Albumin 3.3 (3.2-5.5) g/dl Globulin 3.7 Albumin/Globulin Ratio 0.89 Med Orders - Current: Current Medications Acetaminophen (Tylenol) 650 mg PO Q4H PRN PRN Reason: Pain (Mild 1-3)/fever Last Admin: 12/22/16 09:41 Dose: 650 mg Aspirin (Halfprin) 81 mg PO BRK [facility] Last Admin: 12/22/16 09:41 Dose: 81 mg Digoxin (Lanoxin) 125 mcg PO WITHBREAKFAST [facility] Last Admin: 12/22/16 09:40 Dose: 125 mcg Docusate Sodium (Colace) 100 mg PO BID PRN PRN Reason: Constipation Escitalopram Oxalate (Lexapro) 5 mg PO BEDTIME [facility] Last Admin: 12/21/16 21:15 Dose: 5 mg Pantoprazole Sodium (Protonix) 40 mg PO ACBREAKFAST [facility] Last Admin: 12/22/16 06:29 Dose: 40 mg Ferrous Gluconate 324 MgPt's Own Med 0 each PO WITHDINNER [facility] Last Admin: 12/21/16 18:06 Dose: 1 each Zolpidem Tartrate (Ambien) 5 mg PO BEDTIME PRN PRN Reason: Sleep Discontinued Medications Heparin Sodium (Porcine) (Heparin Sodium) 5,000 units SUBCUT Q8HR [facility] Last Admin: 12/14/16 05:59 Dose: 5,000 units - Exam General: alert, oriented, cooperative, no acute distress, mild distress, other ( He looks frail and tired). No: moderate distress, severe distress, sedated, lethargic, obtunded HEENT: Pupils equal, Pupils reactive, EOMI, Mucous membr. moist/pink Neck: supple, trachea midline, no JVD Lungs: Clear to auscultation, Normal respiratory effort Cardiovascular: Regular Rate, Regular Rhythm Abdomen: bowel sounds present, soft, no tenderness, no distension (Male) Exam: Deferred Back Exam: Normal Inspection, Full Range of Motion Extremities: no edema, normal pulses, no tenderness/swelling, no clubbing, no cyanosis, no calf tenderness Skin: warm, dry, intact Neurological: no new focal deficit Psy/Mental Status: alert, normal affect - Problem List Review Problem List Initiated/Reviewed/Updated: Yes - Plan Plan:: Per his chart "Mr. Brian is a 81 Y/O M with past Medical history of Hypertension, CKD stage III, MDS. He presented with poor eating and drinking and significant weakness. He was noted to have acute Renal failure and Hypernatremia He was admitted to acute care. He was given IV fluids and sodium is normalized and renal function improved. Initially his digoxin level was high , dig was on hold. On 12/12 he was discharged from acute care and followed up at the clinic. He had appointment with pulmonary medicine, a PET scan was performed. Per verbal report from the pulmonary medicine provider there was an area of haziness, but no hypermetabolic areas noted compatible with malignancy. The patient is still significantly weak, presented to swing bed for admission for further physical therapy." Acute renal failure, improved Will encourage oral intake Recheck Renal function periodically Hypernatremia, resolved This most likely was secondary to dehydration and poor oral intake Follow periodically Myeloproliferative disorder with bone marrow fibrosis Follow periodically CBC , hgb is stable Consider to transfuse if Hgb is < 8 g/dl Follow-up as outpatient with the Hem/Onc Team Chronic atrial fibrillation: He was on Digoxin and Metoprolol for rate control Initially digoxin level was elevated but then normalized Continue digoxin at 0.125 mg daily dose Due to low blood pressure will hold metoprolol Weakness, weight loss Continued physical therapy and occupational therapy Depression Continue Lexapro for depression DVT prophylaxis with subcutaneous heparin
[2016-12-22] MEDS: FERROUS GLUCONATE 324 MG PO SCH (18:31)
[2016-12-22] MEDS: Escitalopram 10 MG Tab PO SCH (21:14)
[2016-12-23] MEDS: Pantoprazole 40 MG Tab.CR PO SCH (05:50)
[2016-12-23] MEDS: Aspirin 81 MG Tab.EC PO SCH (09:31)
[2016-12-23] MEDS: Digoxin 125 MCG Tab PO SCH (09:31)
[2016-12-23] MEDS ORDERED: Sodium Chloride 0.65% Nasal Spray 45 ML Bottle NAS PRN (14:52)
--- NOTE | 2016-12-23 14:57 | US ---
Clinical history: 81-year-old male with abnormally elevated liver function tests. Patient reports "g allstones removed" but normal gallbladder identified on CT scan of 22 June 2016. Interpretation: Gallbladder not identified on today's exam (specifically the anterolateral, subcostal region of the liver). Liver normal size, anatomic configuration and homogeneously dense without sign discrete intrahepatic mass lesion or intra/extrahepatic biliary duct dilatation (common hepatic duct 3 mm and the common bile duct 2.8 mm diameter). Pancreas mostly obscured by gas. Prominent 2.9 cm benign-appearing cyst upper mid pole right kidney, anteriorly. CONCLUSION: Normal liver. Pancreas fracture visualized. Gallbladder not identified.
[2016-12-23] MEDS: FERROUS GLUCONATE 324 MG PO SCH (17:38)
[2016-12-23] MEDS: Escitalopram 10 MG Tab PO SCH (20:58)
[2016-12-24] MEDS: Pantoprazole 40 MG Tab.CR PO SCH (06:32)
[2016-12-24] MEDS: Aspirin 81 MG Tab.EC PO SCH (11:07)
[2016-12-24] MEDS: Digoxin 125 MCG Tab PO SCH (11:07)
[2016-12-24] MEDS: Acetaminophen 325 MG Tab PO PRN ×2 (15:32→21:45)
[2016-12-24] MEDS ORDERED: Piperacillin/Tazobactam 3.375 GM in Sodium Chloride 0.9% 100 ML IV SCH (16:15)
--- NOTE | 2016-12-24 16:33 | PN ---
DATE: 12/24/2016 SUBJECTIVE: The patient is seen today because the patient this afternoon had a temperature of 101.3. The patient complained of some mild cough, but denies any chest pain, shortness of breath, abdominal pain, nausea, vomiting, dysuria nor any other complaints. He had an ultrasound of his liver and gallbladder yesterday because of the increasing total bilirubin, but ultrasound came back negative. There is normal liver, pancreas was obscured by gas, and gallbladder was not identified. Because of this temperature, blood cultures were ordered as well as a chest x-ray, urinalysis, and CBC. OBJECTIVE: Vital Signs: Blood pressure is 124/64, pulse 71, respirations of 22, temperature of 101.3. Heart: Regular rate and rhythm. Normal S1 and S2. No gallops. No rubs. Lungs: Diminished breath sounds on both bases, but no significant crackles. No wheezing. Abdomen: Soft and nontender. Bowel sounds positive. Extremities: Negative for any significant pedal edema. No calf tenderness. MEDICATIONS: Reviewed. PLAN: As above. We will also empirically start the patient on Zosyn. A recheck of his liver function test will be done tomorrow and if this is still creeping up, we will do a CAT scan of the abdomen and pelvis. [facility] /[id number]
[2016-12-24] MEDS: Piperacillin/Tazobactam 3.375 GM in Sodium Chloride 0.9% 100 ML IV SCH (17:54)
[2016-12-24] MEDS: FERROUS GLUCONATE 324 MG PO SCH (17:56)
[2016-12-24] MEDS: Escitalopram 10 MG Tab PO SCH (21:46)
[2016-12-25] MEDS: Piperacillin/Tazobactam 3.375 GM in Sodium Chloride 0.9% 100 ML IV SCH ×5 (00:45→19:05)
[2016-12-25] MEDS: Acetaminophen 325 MG Tab PO PRN ×2 (05:00→22:35)
[2016-12-25] MEDS: Pantoprazole 40 MG Tab.CR PO SCH (06:09)
[2016-12-25] MEDS: Digoxin 125 MCG Tab PO SCH (11:27)
[2016-12-25] MEDS: Aspirin 81 MG Tab.EC PO SCH (11:27)
[2016-12-25] MEDS: Sodium Chloride 0.9% 10 ML Syringe FLUSH PRN ×3 (14:32→20:41)
[2016-12-25] MEDS ORDERED: Albuterol 0.083% 2.5 MG/3 ML Neb Soln NEB PRN (17:04)
[2016-12-25] MEDS: Albuterol 0.083% 2.5 MG/3 ML Neb Soln NEB SCH ×2 (17:38→21:15)
[2016-12-25] MEDS: FERROUS GLUCONATE 324 MG PO SCH (18:07)
[2016-12-25] MEDS: Escitalopram 10 MG Tab PO SCH (21:11)
[2016-12-26] MEDS: Sodium Chloride 0.9% 10 ML Syringe FLUSH PRN ×4 (00:37→06:50)
[2016-12-26] MEDS: Piperacillin/Tazobactam 3.375 GM in Sodium Chloride 0.9% 100 ML IV SCH ×5 (00:38→23:48)
[2016-12-26] MEDS: Pantoprazole 40 MG Tab.CR PO SCH (05:38)
[2016-12-26] MEDS: Acetaminophen 325 MG Tab PO PRN ×2 (06:18→15:48)
[2016-12-26] MEDS: Albuterol 0.083% 2.5 MG/3 ML Neb Soln NEB SCH ×4 (07:37→20:20)
[2016-12-26] MEDS: Aspirin 81 MG Tab.EC PO SCH (11:47)
[2016-12-26] MEDS: Digoxin 125 MCG Tab PO SCH (11:47)
[2016-12-26] MEDS: FERROUS GLUCONATE 324 MG PO SCH (18:21)
[2016-12-26] MEDS: Sertraline 50 MG Tab PO SCH (20:21)
[2016-12-27] MEDS: Piperacillin/Tazobactam 3.375 GM in Sodium Chloride 0.9% 100 ML IV SCH ×4 (05:25→23:52)
[2016-12-27] MEDS: Pantoprazole 40 MG Tab.CR PO SCH (05:31)
[2016-12-27] MEDS: Albuterol 0.083% 2.5 MG/3 ML Neb Soln NEB SCH ×4 (07:17→21:50)
[2016-12-27] MEDS: Acetaminophen 325 MG Tab PO PRN (08:41)
[2016-12-27] MEDS: Aspirin 81 MG Tab.EC PO SCH (08:41)
[2016-12-27] MEDS: Digoxin 125 MCG Tab PO SCH (08:41)
--- NOTE | 2016-12-27 09:53 | PN ---
DATE: 12/26/2016 SUBJECTIVE: Mr. Brian is an 81-year-old gentleman with multiple medical issues. This is his 5th admission since October. His current medical issues include: Myeloproliferative disorder, high-risk category. Heis being followed by Dr. Jeremi Lim. The current plan is to possibly start him on ruxolitinib 5 mg twice a day. They are waiting approval for the medication and it has not yet been started. He has failure to thrive and weakness. He seems to do better when he is in the hospital and then when he gets home, he falls back again. He once again is in swing bed because of the generalized weakness. He has anemia. He is currently being treated again for left lower lobe pneumonia. This has been a recurrent problem, was also treated in October 2016. 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 He is followed by Dr. Watt. Possible depression. Chronic renal insufficiency with a solitary kidney. He is followed by Pulmonary Medicine. 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 He was readmitted to the hospital on December 12 for general weakness and debility again. He was also found to have a developing left lower lobe infiltrate on chest x-ray. Lab work showed renal insufficiency with a creatinine clearance of 40. Alkaline phosphatase has been chronically elevated. Two sets of blood cultures have remained without growth. During this admission, he had an abdominal ultrasound and CT scan the abdomen and pelvis. The ultrasound showed normal liver. Gallbladder was not seen. CT of abdomen and pelvis was performed without contrast on December 25 and showed chronic renal calculi on the left. He has had stenting there before. There is also a calculus seen at the right UVJ and it is probably a bladder calculus. He had diverticulosis of the rectosigmoid. There were diffusely sclerotic bony changes seen, which may represent metastatic disease and borderline splenomegaly, which was seen on a study in [place] as well. Mr. Brian is presently on Zosyn 3.375 g every 6 hours. He continues on his usual medications. Nursing staff reports that he fell last evening about 2100. He got up and went to the bathroom without calling for help. Apparently, he became dizzy and had a near-syncopal episode. Oxygen saturations were 84%, at that time. He fell in the bathroom hitting his face, nose, and had skin injury to the left forearm. Neurologically, he was intact. LABORATORY DATA: Lab work today showed a white count of 15,000 with 44% neutrophils, 19% bands, 18% lymphocytes. Chemistries yesterday showed normal electrolytes, BUN and creatinine were 20 and 1.7, with a GFR of 39. PHYSICAL EXAMINATION: GENERAL: On exam, he is seated in his bed. His face is extensively bruised, particularly along the left side. The forehead, eye, nose, and left forearm is wrapped where he had avulsed skin. He was awake and alert. He participated although at times, he seemed a bit "fuzzy." He was in no distress. He does seem depressed. Vital Signs: Blood pressure was 111/45, pulse 72, respiratory rate 20, oxygen saturation 98% on 2 L. He was febrile during the day to 101.8. He has been intermittently febrile throughout the visit. There are 2 sets of blood cultures, which have remained negative. Chest: Showed clear, but diminished bilateral breath sounds. Heart: Showed regular rate and rhythm. Abdomen: Soft and benign. Extremities: Showed no edema. Neurological: There were no gross motor or sensory deficits. We will continue the present management. He will continue on the Zosyn. He will continue on his usual medications. He is working with Physical and Occupational Therapy. His son from [place] apparently is working on his Medicaid application. His son did speak to Julissa Vega RN from [facility] today. At this point, Mr. Brian is not a candidate for basic care because of his weakness and debility and his need for assistance with his ADLs. At this point, they most likely will be looking at usp placement, but we will need to clarify treatment for his myeloproliferative disorder. No other changes are made in his care today. Continue the current management while we await a disposition decision by family and load planner. [facility] /[id number] JENNIFER
[2016-12-27] MEDS: Sodium Chloride 0.9% 10 ML Syringe FLUSH PRN ×3 (12:25→23:51)
[2016-12-27] MEDS: FERROUS GLUCONATE 324 MG PO SCH (18:20)
[2016-12-27] MEDS: Sertraline 50 MG Tab PO SCH (21:43)
[2016-12-28] MEDS: Sodium Chloride 0.9% 10 ML Syringe FLUSH PRN ×7 (00:30→23:34)
[2016-12-28] MEDS: Piperacillin/Tazobactam 3.375 GM in Sodium Chloride 0.9% 100 ML IV SCH ×4 (05:24→23:35)
[2016-12-28] MEDS: Pantoprazole 40 MG Tab.CR PO SCH (05:47)
[2016-12-28] MEDS: Albuterol 0.083% 2.5 MG/3 ML Neb Soln NEB SCH ×4 (07:16→20:09)
[2016-12-28] MEDS: Aspirin 81 MG Tab.EC PO SCH (10:30)
[2016-12-28] MEDS: Digoxin 125 MCG Tab PO SCH (10:30)
[2016-12-28] MEDS: FERROUS GLUCONATE 324 MG PO SCH (18:05)
[2016-12-28] MEDS: Sertraline 50 MG Tab PO SCH (20:07)
[2016-12-29] MEDS: Sodium Chloride 0.9% 10 ML Syringe FLUSH PRN ×6 (00:11→20:40)
[2016-12-29] MEDS: Piperacillin/Tazobactam 3.375 GM in Sodium Chloride 0.9% 100 ML IV SCH (05:20)
[2016-12-29] MEDS: Pantoprazole 40 MG Tab.CR PO SCH (06:02)
[2016-12-29] MEDS: Albuterol 0.083% 2.5 MG/3 ML Neb Soln NEB SCH ×4 (07:15→20:47)
[2016-12-29] MEDS: Aspirin 81 MG Tab.EC PO SCH (09:22)
[2016-12-29] MEDS: Digoxin 125 MCG Tab PO SCH (09:22)
[2016-12-29] MEDS: Meropenem 1 GM in Sodium Chloride 0.9% 100 ML IV SCH ×2 (12:16→20:41)
[2016-12-29] MEDS: FERROUS GLUCONATE 324 MG PO SCH (17:50)
[2016-12-29] MEDS: Sertraline 50 MG Tab PO SCH (20:49)
--- NOTE | 2016-12-30 00:40 | PN ---
DATE: 12/29/2016 SUBJECTIVE: Mr. Brian is an 81-year-old gentleman with multiple medical problems including the recent diagnosis of myeloproliferative disease, high grade, high risk. He has not started on any treatment yet, although it has been discussed with Oncology. 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 He was once again admitted to swing bed with weakness and debility and was found after admission to have recurrent left lower lobe pneumonia. He also fell in his room on the overnight of 12/26/2015, striking the left side of his face and head as well as his left arm. He has been on Zosyn. On exam, he continues to have a significant cough and is bringing up occasional blood-tinged sputum. We have been following his labs. The white count continued to increase from 12,000 on the to 15,000 on the and today was 20,000, with 85% neutrophils and 7% lymphocytes. Renal function is diminished with a creatinine of 1.8, and a creatinine clearance of 37 and a GFR of 36. Based on the fact that he continued to have this harsh productive cough and white count has continued to rise, we made the decision to change his medications. He had been on Zosyn, this was discontinued and he was started on meropenem 1 g IV every 12 hours and he was given a single dose of IV vancomycin 1 g. Our plan is to get a trough level tomorrow, and we will decide whether to continue with the vancomycin. A followup chest x-ray was ordered. Two views were taken. This shows the appearance of multifocal pneumonia with an increasing right mid-lung density as well as increasing left lower lobe opacity compared to December 24. It is difficult to know how his myeloproliferative disorder affects or contributes to the pneumonia. As mentioned above, he recently was also diagnosed with pulmonary disease. PHYSICAL EXAMINATION: General: He appears very frail. He also appears to be in continual decline. He is sitting in bed drowsy, but will awake and participate briefly before drifting off again. He does not appear to be in any acute distress. He does have an occasional harsh cough. Vital Signs: Blood pressure was 109/59, pulse 93, respiratory rate 24, oxygen saturation 97% on 1 L, and temperature was 98.6 HEENT: Shows resolving bruising around the left eye, forehead, and face. Chest: Showed diminished and coarse bilateral breath sounds. Heart: Showed regular rate and rhythm. Abdomen: Benign. Neurological: Neurologically, he is intact. We will see how he does with the new changes in antibiotics. Overall, he does not appear to be doing well and his prognosis would seem poor. It is unclear if and when at this time he will be started on chemotherapy for his myeloproliferative disorder. His family is pursuing a Medicaid application and possible placement either in [place] or [place] where one of his sons resides. No other changes are made today. [facility] /[id number] JENNIFER
[2016-12-30] MEDS: Pantoprazole 40 MG Tab.CR PO SCH (06:04)
[2016-12-30] MEDS: Albuterol 0.083% 2.5 MG/3 ML Neb Soln NEB SCH ×4 (07:15→21:07)
[2016-12-30] MEDS: Digoxin 125 MCG Tab PO SCH (09:20)
[2016-12-30] MEDS: Meropenem 1 GM in Sodium Chloride 0.9% 100 ML IV SCH ×2 (09:21→20:59)
[2016-12-30] MEDS: Aspirin 81 MG Tab.EC PO SCH (09:21)
[2016-12-30] MEDS: Sodium Chloride 0.9% 10 ML Syringe FLUSH PRN ×5 (09:21→20:59)
[2016-12-30] MEDS: FERROUS GLUCONATE 324 MG PO SCH (17:36)
[2016-12-30] MEDS: Sertraline 50 MG Tab PO SCH (21:04)
[2016-12-31] MEDS: Pantoprazole 40 MG Tab.CR PO SCH (06:25)
[2016-12-31] MEDS: Albuterol 0.083% 2.5 MG/3 ML Neb Soln NEB SCH ×4 (07:07→20:58)
[2016-12-31] MEDS: Aspirin 81 MG Tab.EC PO SCH (08:51)
[2016-12-31] MEDS: Digoxin 125 MCG Tab PO SCH (08:51)
[2016-12-31] MEDS: Meropenem 1 GM in Sodium Chloride 0.9% 100 ML IV SCH ×2 (08:51→20:51)
[2016-12-31] MEDS: Sodium Chloride 0.9% 10 ML Syringe FLUSH PRN ×4 (09:06→20:51)
[2016-12-31] MEDS: FERROUS GLUCONATE 324 MG PO SCH (17:16)
[2016-12-31] MEDS: Sertraline 50 MG Tab PO SCH (20:56)
[2017-01-01] MEDS: Pantoprazole 40 MG Tab.CR PO SCH (06:14)
[2017-01-01] MEDS: Albuterol 0.083% 2.5 MG/3 ML Neb Soln NEB SCH ×4 (07:21→20:40)
[2017-01-01] MEDS: Aspirin 81 MG Tab.EC PO SCH (09:33)
[2017-01-01] MEDS: Digoxin 125 MCG Tab PO SCH (09:33)
[2017-01-01] MEDS: Meropenem 1 GM in Sodium Chloride 0.9% 100 ML IV SCH ×2 (09:35→20:41)
[2017-01-01] MEDS: Sodium Chloride 0.9% 10 ML Syringe FLUSH PRN ×3 (09:43→15:25)
[2017-01-01] MEDS: FERROUS GLUCONATE 324 MG PO SCH (18:52)
[2017-01-01] MEDS: Sertraline 50 MG Tab PO SCH (20:42)
[2017-01-02] MEDS: Pantoprazole 40 MG Tab.CR PO SCH (06:12)
[2017-01-02] MEDS: Albuterol 0.083% 2.5 MG/3 ML Neb Soln NEB SCH ×4 (07:33→20:48)
[2017-01-02] MEDS: Digoxin 125 MCG Tab PO SCH (09:20)
[2017-01-02] MEDS: Aspirin 81 MG Tab.EC PO SCH (09:20)
--- NOTE | 2017-01-02 09:46 | CR ---
Clinical history: 81-year-old male chest pain and history of "multilobar pneumonia". Interpretation: Persistent evidence of left lower lobe atelectasis/pneumonia (bronchiectasis). Aspir ation? Reproducible suspicious peripheral parenchymal right midlung nodule, after some clearing of the asso ciated infiltrate demonstrated on 28 December 2016 exam. Normal cardiac silhouette without alveolar edema or dependent effusion. No other lung mass hilar lymphadenopathy or focal lobar pneumonia. CONCLUSION: Probable bronchiectasis or chronic pneumonia left lung base. Suspicious right mid lung nodule becoming more apparent when compared to earlier exams.
[2017-01-02] MEDS: Meropenem 1 GM in Sodium Chloride 0.9% 100 ML IV SCH ×2 (09:47→20:40)
[2017-01-02] MEDS: Sodium Chloride 0.9% 10 ML Syringe FLUSH PRN ×2 (09:48→10:28)
[2017-01-02] MEDS ORDERED: Furosemide 20 MG Tab PO ONE ×2 (12:44→18:30)
--- NOTE | 2017-01-02 12:51 | PCM.PN ---
- General Info Date of Service: 01/02/17 Admission Dx/Problem (Free Text): Admission Diagnosis/Problem Admission Diagnosis/Problem Weakness Subjective Update: Continues to have moderate weakness but denies any other symptoms. Working with physical therapy and occupational therapy. Had a fall a few days ago and has been more careful since. He denies fever, chills, nausea, vomiting, chest pain, cough, shortness breath, abdominal pain, urinary symptoms, lower extremity edema, any other concerns. - Patient Data Vitals - most recent: Last Vital Signs Temp 36.9 C 01/02/17 07:36 Pulse 78 01/02/17 11:18 Resp 20 01/02/17 07:36 BP 126/62 01/02/17 07:36 Pulse Ox 95 01/02/17 11:18 Weight - most recent: 82.1 kg I&O - last 24 hours: Intake & Output 01/01/17 01/02/17 01/02/17 22:59 06:59 14:59 Intake Total 243 340 Balance 243 340 Lab Results last 24 hrs: Laboratory Results - last 24 hr 01/02/17 01/02/17 Range/Units 05:40 05:40 WBC 19.5 H (5.0-10.0) 10^3/uL RBC 2.31 L (4.6-6.2) 10^6/uL Hgb 7.3 L (14.0-18.0) g/dL Hct 24.5 L (40.0-54.0) % MCV 106.1 H (80-100) fL MCH 31.6 (27.0-34.0) pg MCHC 29.8 L (33.0-35.0) g/dL Plt Count 158 (150-450) 10^3/uL Sodium 139 (135-145) mmol/L Potassium 4.0 (3.6-5.0) mmol/L Chloride 109 (101-111) mmol/L Carbon Dioxide 20.0 L (21.0-31.0) mmol/L Anion Gap 14.0 BUN 20 H (7-18) mg/dL Creatinine 1.3 (0.6-1.3) mg/dL Est Cr Clr Drug Dosing 51.75 mL/min Estimated GFR (MDRD) 53 BUN/Creatinine Ratio 15.38 Glucose 90 (74-105) mg/dL Calcium 8.2 L (8.4-10.2) mg/dl Total Bilirubin 2.1 H (0.2-1.0) mg/dL AST 41 (10-42) IU/L ALT 21 (10-60) IU/L Alkaline Phosphatase 349 H (42-121) IU/L Total Protein 6.4 L (6.7-8.2) g/dl Albumin 2.5 L (3.2-5.5) g/dl Globulin 3.9 Albumin/Globulin Ratio 0.64 Med Orders - Current: Current Medications Acetaminophen (Tylenol) 650 mg PO Q4H PRN PRN Reason: Pain (Mild 1-3)/fever Last Admin: 12/27/16 08:41 Dose: 650 mg Albuterol (Proventil Neb Soln) 2.5 mg NEB QIDRT [facility] Last Admin: 01/02/17 11:17 Dose: 2.5 mg Albuterol (Proventil Neb Soln) 2.5 mg NEB Q6HRRT PRN PRN Reason: Shortness of Breath Last Admin: 12/26/16 13:38 Dose: 2.5 mg Aspirin (Halfprin) 81 mg PO BRK [facility] Last Admin: 01/02/17 09:20 Dose: 81 mg Digoxin (Lanoxin) 125 mcg PO WITHBREAKFAST [facility] Last Admin: 01/02/17 09:20 Dose: 125 mcg Docusate Sodium (Colace) 100 mg PO BID PRN PRN Reason: Constipation Furosemide (Lasix) 20 mg PO ONETIME ONE Stop: 01/02/17 12:45 Meropenem 1 gm/ Sodium (Chloride) 100 mls @ 200 mls/hr IV Q12HR [facility] Last Admin: 01/02/17 09:47 Dose: 200 mls/hr Vancomycin HCl 1 gm/ Sodium (Chloride) 250 mls @ 167 mls/hr IV Q24H [facility] Last Admin: 01/01/17 15:24 Dose: 167 mls/hr Pantoprazole Sodium (Protonix) 40 mg PO ACBREAKFAST [facility] Last Admin: 01/02/17 06:12 Dose: 40 mg Ferrous Gluconate 324 MgPt's Own Med 0 each PO WITHDINNER [facility] Last Admin: 01/01/17 18:52 Dose: 1 each Sertraline HCl (Zoloft) 25 mg PO BEDTIME [facility] Last Admin: 01/01/17 20:42 Dose: 25 mg Sodium Chloride (Rush Nasal [place]) 0 ml VERO QID PRN PRN Reason: Congestion Sodium Chloride (Saline Flush) 10 ml FLUSH ASDIRECTED PRN PRN Reason: Keep Vein Open Last Admin: 01/02/17 10:28 Dose: 10 ml Zolpidem Tartrate (Ambien) 5 mg PO BEDTIME PRN PRN Reason: Sleep Discontinued Medications Escitalopram Oxalate (Lexapro) 5 mg PO BEDTIME [facility] Last Admin: 12/25/16 21:11 Dose: 5 mg Heparin Sodium (Porcine) (Heparin Sodium) 5,000 units SUBCUT Q8HR [facility] Last Admin: 12/14/16 05:59 Dose: 5,000 units Piperacillin Sod/Tazobactam (Sod 3.375 gm/ Sodium Chloride) 100 mls @ 200 mls/ hr IV Q6H [facility] Last Admin: 12/25/16 03:41 Dose: Not Given Piperacillin Sod/Tazobactam (Sod 3.375 gm/ Sodium Chloride) 100 mls @ 200 mls/ hr IV Q6H [facility] Last Admin: 12/29/16 05:20 Dose: 200 mls/hr Vancomycin HCl 1 gm/ Sodium (Chloride) 250 mls @ 167 mls/hr IV ONETIME ONE Stop: 12/29/16 11:44 Last Admin: 12/29/16 10:28 Dose: 167 mls/hr - Exam General: alert, oriented Neck: supple Lungs: Rhonchi (Bilateral basilar) Cardiovascular: Regular Rate, Regular Rhythm Abdomen: bowel sounds present, soft, no tenderness Extremities: no edema Skin: warm, ecchymosis (Left side of the face left arm, periorbital on the left side) Neurological: no new focal deficit Psy/Mental Status: alert, normal affect, normal mood - Problem List & Annotations (1) Weakness SNOMED Code(s): 62634668 Code(s): R53.1 - WEAKNESS Status: Acute Current Visit: No (2) Myelodysplastic syndrome SNOMED Code(s): 750868618 Code(s): D46.9 - MYELODYSPLASTIC SYNDROME, UNSPECIFIED Status: Acute Current Visit: Yes - Problem List Review Problem List Initiated/Reviewed/Updated: Yes - My Orders Last 24 Hours: My Active Orders 01/02/17 12:41 RED BLOOD CELLS LP [BBK] Routine TYPE AND SCREEN [BBK] Routine Blood Transfusion Reflex Orders [OM.PC] Per Unit Routine Transfuse Red Blood Cells [COMM] Routine 01/02/17 12:44 Furosemide [Lasix] 20 mg PO ONETIME ONE 01/03/17 05:11 CBC WITH AUTO DIFF [HEME] AM 01/03/17 05:15 BASIC METABOLIC PANEL,BMP [CHEM] AM - Plan Plan:: Per his chart "Mr. Brian is a 81 Y/O M with past Medical history of Hypertension, CKD stage III, MDS. He presented with poor eating and drinking and significant weakness. He was noted to have acute Renal failure and Hypernatremia He was admitted to acute care. He was given IV fluids and sodium is normalized and renal function improved. Initially his digoxin level was high , dig was on hold. On 12/12 he was discharged from acute care and followed up at the clinic. He had appointment with pulmonary medicine, a PET scan was performed. Per verbal report from the pulmonary medicine provider there was an area of haziness, but no hypermetabolic areas noted compatible with malignancy. The patient was still significantly weak, presented to swing bed for admission for further physical therapy." Acute renal failure, improved Will encourage oral intake Recheck Renal function periodically Hypernatremia, resolved This most likely was secondary to dehydration and poor oral intake Follow periodically Myeloproliferative disorder with bone marrow fibrosis Follow periodically CBC , hgb is down will transfuse 2 units of pRBC Follow-up as outpatient with the Hem/Onc Team Chronic atrial fibrillation: He was on Digoxin and Metoprolol for rate control Initially digoxin level was elevated but then normalized Continue digoxin at 0.125 mg daily dose Due to low blood pressure will hold metoprolol Weakness, weight loss, fall Continued physical therapy and occupational therapy Depression Continue Lexapro for depression DVT prophylaxis with subcutaneous heparin
[2017-01-02] MEDS: FERROUS GLUCONATE 324 MG PO SCH (17:39)
[2017-01-02] MEDS: Zolpidem 5 MG Tab PO PRN (20:47)
[2017-01-02] MEDS: Sertraline 50 MG Tab PO SCH (20:48)
[2017-01-03] MEDS: Pantoprazole 40 MG Tab.CR PO SCH (06:16)
[2017-01-03] MEDS: Albuterol 0.083% 2.5 MG/3 ML Neb Soln NEB SCH ×4 (07:56→20:46)
[2017-01-03] MEDS: Aspirin 81 MG Tab.EC PO SCH (07:58)
[2017-01-03] MEDS: Digoxin 125 MCG Tab PO SCH (07:58)
[2017-01-03] MEDS: Meropenem 1 GM in Sodium Chloride 0.9% 100 ML IV SCH ×2 (09:55→20:51)
[2017-01-03] MEDS: Sodium Chloride 0.9% 10 ML Syringe FLUSH PRN ×2 (09:56→16:12)
[2017-01-03] MEDS: FERROUS GLUCONATE 324 MG PO SCH (17:20)
[2017-01-03] MEDS: Sertraline 50 MG Tab PO SCH (20:45)
[2017-01-03] MEDS: Zolpidem 5 MG Tab PO PRN (20:45)
[2017-01-04] MEDS: Pantoprazole 40 MG Tab.CR PO SCH (05:46)
[2017-01-04] MEDS: Aspirin 81 MG Tab.EC PO SCH (08:36)
[2017-01-04] MEDS: Digoxin 125 MCG Tab PO SCH (08:36)
[2017-01-04] MEDS: Albuterol 0.083% 2.5 MG/3 ML Neb Soln NEB SCH ×2 (08:37→12:41)
[2017-01-04] MEDS: Meropenem 1 GM in Sodium Chloride 0.9% 100 ML IV SCH ×2 (09:37→21:08)
[2017-01-04] MEDS: Sodium Chloride 0.9% 10 ML Syringe FLUSH PRN ×2 (09:37→21:48)
[2017-01-04] MEDS: FERROUS GLUCONATE 324 MG PO SCH (17:34)
[2017-01-04] MEDS: Sertraline 50 MG Tab PO SCH (21:07)
[2017-01-05] MEDS: Pantoprazole 40 MG Tab.CR PO SCH (05:41)
[2017-01-05] MEDS: Aspirin 81 MG Tab.EC PO SCH (08:08)
[2017-01-05] MEDS: Digoxin 125 MCG Tab PO SCH (08:08)
[2017-01-05] MEDS: Meropenem 1 GM in Sodium Chloride 0.9% 100 ML IV SCH ×2 (10:00→20:55)
[2017-01-05] MEDS: Sodium Chloride 0.9% 10 ML Syringe FLUSH PRN ×2 (10:01→16:01)
[2017-01-05] MEDS: FERROUS GLUCONATE 324 MG PO SCH (17:29)
[2017-01-05] MEDS: Sertraline 50 MG Tab PO SCH (20:53)
[2017-01-06] MEDS: Pantoprazole 40 MG Tab.CR PO SCH (06:01)
[2017-01-06] MEDS: Aspirin 81 MG Tab.EC PO SCH (08:21)
[2017-01-06] MEDS: Digoxin 125 MCG Tab PO SCH (08:21)
[2017-01-06] MEDS: Sodium Chloride 0.9% 10 ML Syringe FLUSH PRN ×2 (08:22→16:18)
[2017-01-06] MEDS: Meropenem 1 GM in Sodium Chloride 0.9% 100 ML IV SCH ×2 (08:23→21:21)
[2017-01-06] MEDS ORDERED: Morphine 2 MG/ML Syringe IVPUSH ONE (15:46)
[2017-01-06] MEDS: FERROUS GLUCONATE 324 MG PO SCH ×2 (17:20→18:22)
[2017-01-06] MEDS: Acetaminophen 325 MG Tab PO PRN ×2 (17:21→21:22)
[2017-01-06] MEDS ORDERED: Iopamidol 755 Mg/ML 100 ML Bottle IVPUSH ONE (18:34)
[2017-01-06] MEDS ORDERED: Sodium Chloride 0.9% 1,000 ML IV SCH (18:45)
--- NOTE | 2017-01-06 20:54 | PN ---
DATE: 01/06/2017 SUBJECTIVE: Mr. Snehal Trujillo is an 81-year-old male with medical history significant for hypertension, hyperlipidemia, chronic kidney disease, myelodysplastic syndrome, increasing weakness, tiredness, history of acute renal failure, anemia, thrombocytopenia, requiring blood transfusions in the past, admitted to swing bed for continued physical therapy and occupational therapy. For the last 24 hours, this evening, the patient was complaining of chest pain which is mostly on the right side, grades it as 3 to 4/10 in intensity, has been going on since yesterday which is intermittent in nature, aggravated on deep breathing and coughing, relieved with rest and pain medication, not associated with any shortness of breath. Denies any abdominal pain. Complains of having fevers and chills. Denies any headaches. No changes in the vision. No complaints of abdominal pain. No complaints of nausea, vomiting, or diarrhea. REVIEW OF SYSTEMS: Cardiovascular, respiratory, gastrointestinal, neurology, constitutional were all evaluated. OBJECTIVE: Vital Signs: Temperature of 99.1, pulse of 107, blood pressure of 82/60, respiratory rate of 24, saturating at 92% on 2 L of oxygen. General Appearance: The patient is well oriented to time, place, and person. Follows commands spontaneously. Cardiovascular System: S1, S2 heard with normal intensity. No gallops. Respiratory System: Clear to auscultation bilaterally. No wheeze. No crepitations. Abdomen: Soft. Bowel sounds positive. Nontender. No rigidity. Extremities: No edema in bilateral lower extremities. Neurology: No gross focal neurological deficits. LABORATORY DATA: Reviewed. WBC 17.3, hemoglobin 8.9, hematocrit 29.3, platelet count 188. Troponin 0.03. MEDICATIONS: Reviewed. Continue with: 1. Tylenol 650 every 4 hours as needed for pain. 2. Albuterol nebulizers q.6 hours as needed. 3. Aspirin 81 mg daily. 4. Digoxin 125 mcg daily. 5. Meropenem 1 g IV q.12 hourly. 6. Protonix 40 mg daily. 7. Zoloft 25 mg at bedtime. 8. Sodium chloride nasal spray as needed. 9. Vancomycin q.24 hours, pharmacy to dose. 10.Ambien 5 mg at bedtime as needed. ASSESSMENT: 1. Possible pneumonia. 2. Chest pain. 3. Hypertension. 4. Hyperlipidemia. 5. Myelodysplastic syndrome. 6. Anemia. PLAN: 1. Chest pain. The patient is complaining of chest pain which has been going on since yesterday, which is intermittent in nature and aggravated on deep breathing and coughing. He was also noted to have low blood pressure with tachycardia. Given the overall picture and the patient was not on any DVT prophylaxis secondary to his anemia and thrombocytopenia requiring multiple blood transfusions in the past, high suspicion for acute pulmonary embolism. We will get a CT scan of the chest with PE protocol. The patient was explained about the risks, benefits, and complications of the study. The patient would like to go ahead and get this study done to know why he is having this chest pain. The patient also has history of pneumonia, but the patient has been on broad-spectrum antibiotics with meropenem and vancomycin, so the patient should not be having any infection at this time. We will follow the CT scan report. 2. Hypertension. The patient is currently hypotensive, his blood pressures on the lower side. He appears dry, could be resulting in dehydration. The patient has poor oral intake. We will start him on IV fluids. We will have him on IV normal saline at 100 mL/h. We will get labs in a.m. The patient will be encouraged to eat. We will hold his antihypertensive medications for systolic blood pressure less than 110. 3. DVT prophylaxis. We will follow up on the CT scan report and since his thrombocytopenia is improved, one might consider having him on heparin 5000 units subcutaneous q.12 hourly as DVT prophylaxis. 4. Myelodysplastic syndrome. The patient had required multiple blood transfusions in the past. His hemoglobin is on the lower side. We will recheck a CBC in the a.m. [facility] /[id number]
[2017-01-06] MEDS: Sodium Chloride 0.9% 1,000 ML IV SCH (21:05)
[2017-01-06] MEDS: Sertraline 50 MG Tab PO SCH (21:23)
[2017-01-07] MEDS: Pantoprazole 40 MG Tab.CR PO SCH (06:03)
[2017-01-07 07:42] VITALS: BP 118/63
[2017-01-07] MEDS: Digoxin 125 MCG Tab PO SCH (08:51)
[2017-01-07] MEDS: Aspirin 81 MG Tab.EC PO SCH (08:51)
[2017-01-07] MEDS: Meropenem 1 GM in Sodium Chloride 0.9% 100 ML IV SCH (08:52)
[2017-01-07] MEDS ORDERED: Enoxaparin 80 MG/0.8 ML Syringe SUBCUT ONE (10:15)
[2017-01-07] MEDS: Sodium Chloride 0.9% 1,000 ML IV SCH (10:22)
--- NOTE | 2017-01-08 04:05 | DISCH ---
ADMITTING DIAGNOSIS: Generalized weakness and tiredness. DISCHARGE DIAGNOSES: 1. Pneumonia with possible parapneumonic effusion to rule out empyema. 2. Elevated troponin to rule out acute coronary syndrome. HISTORY OF PRESENTING ILLNESS: Mr. Snehal Mcmillan is an 82-year-old male with a medical history significant for hypertension, hyperlipidemia, myelodysplastic syndrome, chronic kidney disease, and anemia requiring blood transfusions in the past. He was initially admitted to the hospital with complaints of increasing weakness and tiredness. The patient was noted to have pneumonia and has been on IV antibiotic with meropenem and vancomycin. Yesterday, the patient started having fevers up to 101.3 and 100.6. We obtained blood cultures and fungal cultures. He was also complaining of chest pain and obtained a CT scan of the chest with PE protocol. No evidence of PE noted on the CT scan of the chest, but showed evidence of [id number] pleural effusion on the right side and mild pleural effusion on the left side. We obtained serial cardiac enzymes to rule out myocardial infarction, and they were positive as per the labs here. His troponin was 0.03 yesterday and increased to 0.06 today. The patient did receive Lovenox 80 mg and aspirin 81 mg. The patient remains hemodynamically stable. He is being transferred to higher level of care for Cardiology consultation for elevated troponin and also possible Intervention Radiology consultation for thoracocentesis and possible chest tube placement. Given his fevers even on the antibiotics, one has to think of possible parapneumonic effusion versus empyema as a cause of this fever. The patient was explained about the transfer and is agreeable for the transfer. DISCHARGE MEDICATIONS: Include: 1. Tylenol 500 mg every 6 hours as needed for pain. 2. Aspirin 81 mg daily. 3. Digoxin 125 mcg daily. 4. Ferrous gluconate 324 mg daily. 5. Meropenem 1 g IV q.12 hourly. 6. Metoprolol 12.5 mg twice a day. 7. Protonix 40 mg daily. 8. Zoloft 25 mg daily. 9. Vancomycin pharmacy to dose. PHYSICAL EXAMINATION: Vital Signs: On the day of discharge vitals; temperature of 98.7, pulse of 56, blood pressure 118/63, respiratory rate of 20, saturating at 97% on 2 L of oxygen. General Appearance: The patient is well oriented to time, place, and person. Follows commands spontaneously. Cardiovascular System: S1, S2 heard with normal intensity. No gallops. Respiratory: Clear to auscultation bilaterally except for decreased breath sounds at the bases. Mild crepitations at the bases. No wheeze. Abdomen: Soft. Bowel sounds positive. Nontender. No rigidity. Extremities: Mild edema in bilateral lower extremities. Neurology: No gross focal neurological deficits. CONDITION ON ADMISSION: Poor. CONDITION ON DISCHARGE: Stable. DISPOSITION: Discharged to [facility] for higher level of care requiring Intervention Radiology consultation and also Cardiology consultation. DIET: Cardiac healthy diet. [facility] /[id number]
--- NOTE | 2017-01-10 14:10 | EKG ---
01/07/2017- ASHWIN SALINAS - A 12-lead EKG shows atrial fibrillation with heart rate of 71. No significant ST elevation or ST depression noted on this 12-lead EKG except for nonspecific T- wave changes noted on lead V2 and V3. [facility] /[id number]
== END 2017-01-07 11:35 | DRG 947 ==
LOC: UNDOADMIN 18:45 → DL.MS 18:45
PROVIDERS: ADMIT Internal Medicine; ATTEND Internal Medicine
PROC: 30233N1 Transfusion of Nonautologous Red Blood Cells into Peripheral Vein, Percutaneous Approach (ICD-10-PCS; principal; 2016-12-15)
DX: R53.1 Weakness (principal); J18.9 Pneumonia, unspecified organism; N17.9 Acute kidney failure, unspecified; E87.0 Hyperosmolality and hypernatremia; I24.9 Acute ischemic heart disease, unspecified; J90 Pleural effusion, not elsewhere classified; I12.9 Hypertensive chronic kidney disease with stage 1 through stage 4 chronic kidney disease, or unspecified chronic kidney disease; N18.3 Chronic kidney disease, stage 3 (moderate); Z87.891 Personal history of nicotine dependence; E86.0 Dehydration; D46.9 Myelodysplastic syndrome, unspecified; I48.2 Chronic atrial fibrillation; M19.90 Unspecified osteoarthritis, unspecified site; H91.90 Unspecified hearing loss, unspecified ear; F32.9 Major depressive disorder, single episode, unspecified; Z79.82 Long term (current) use of aspirin; Z79.899 Other long term (current) drug therapy; E87.5 Hyperkalemia; S50.912A Unspecified superficial injury of left forearm, initial encounter; W19.XXXA Unspecified fall, initial encounter; R74.8 Abnormal levels of other serum enzymes; R04.0 Epistaxis; R50.9 Fever, unspecified
CPT/HCPCS: 36415; 36430; 71020; 71260; 74176; 76705; 80048; 80053; 80076; 80202; 81001; 82248; 82565; 84484; 85004; 85007; 85008; 85018; 85025; 85027; 85048; 86850; 86900; 86901; 86920; 86922; 87040; 87103; 93005; 93010; 94640; 97110-GO; 97110-GP; 97116-GP; 97161-GP; 97165-GO; 97530-GO; 97535-GO; A9270-GY; J1644; J1650; J2185; J2270; J2543; J3370; J7030; J7050; J7620-GY; P9016; Q9967

== ENCOUNTER 2017-01-30 05:12 | Inpatient (IN) | payer MEDICARE, OTHER, MEDICAID ==
--- NOTE | 2017-01-30 05:24 | EDM.PDOC ---
ED HPI GENERAL MEDICAL PROBLEM - General Chief Complaint: General Stated Complaint: AMBULANCE Time Seen by Provider: 01/30/17 05:17 Source of Information: Reports: Patient History Limitations: Reports: No Limitations - History of Present Illness INITIAL COMMENTS - FREE TEXT/NARRATIVE: sent from [facility] for vomiting blood. pt denies vomiting blood states been coughing for a long time and sometimes does cough up blood. EMS didn't notice large amount but only small red specks at scene. pt denies CP/SOB presently. - Related Data Allergies Allergy/AdvReac Type Severity Reaction Status Date / Time No Known Allergies Allergy Verified 01/30/17 05:17 Home Meds: Home Meds Aspirin [Halfprin] 81 mg PO BRK 07/01/16 [History] Acetaminophen 500 mg PO Q6H PRN 10/28/16 [History] Ferrous Gluconate 324 mg PO WITHDINNER 10/28/16 [History] Pantoprazole [ProTONIX] 40 mg PO ACBREAKFAST 10/28/16 [History] Metoprolol Tartrate [Lopressor] 12.5 mg PO BID #0 11/15/16 [Rx] Digoxin [Lanoxin] 125 mcg PO WITHBREAKFAST 12/12/16 [History] Sertraline [Zoloft] 25 mg PO BEDTIME 12/27/16 [History] Bisacodyl [Biscolax] 1 supp RECTAL ASDIRECTED PRN 01/30/17 [History] Ciprofloxacin HCl [Cipro] 1 tab PO BID 01/30/17 [History] Citalopram Hydrobromide [Celexa] 1 tab PO DAILY 01/30/17 [History] Dextrose [Glucose Gel] 1 applic PO ASDIRECTED PRN 01/30/17 [History] Glucagon,Human Recombinant [Glucagon Emergency Kit] 1 applic SQ ASDIRECTED PRN 01/30/17 [History] Magnesium Hydroxide [Milk of Magnesia] 30 ml PO ASDIRECTED PRN 01/30/17 [History ] Na Phos,M-B/Na Phos,DI-B [Fleet Enema] 1 applic RECTAL ASDIRECTED PRN 01/30/17 [ History] Past Medical History HEENT History: Reports: Cataract, Hard of Hearing, Impaired Vision Other HEENT History: bilateral catarct surgery,[place] right ear Cardiovascular History: Reports: Afib Respiratory History: Reports: Pneumonia, Recurrent Gastrointestinal History: Reports: Bowel Obstruction Genitourinary History: Reports: Renal Calculus Musculoskeletal History: Reports: Osteoarthritis Other Musculoskeletal History: 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 Neurological History: Reports: None Psychiatric History: Reports: None Endocrine/Metabolic History: Reports: None Hematologic History: Reports: Anemia, Blood Transfusion(s) Immunologic History: Reports: None Oncologic (Cancer) History: Reports: Other (See Below) Other Oncologic History: blood cancer Dermatologic History: Reports: Other (See Below) Other Dermatologic History: steri strips to left forearm due top falling on dresser - Infectious Disease History Infectious Disease History: Reports: Measles, Mumps - Past Surgical History Head Surgeries/Procedures: Reports: None Social & Family History - Family History Family Medical History: Noncontributory Cardiac: Reports: Afib GI: Reports: None Psychiatric: Reports: None Endocrine/Metabolic: Reports: None - Tobacco Use Smoking Status *Q: Never Smoker Years of Tobacco use: 30 Packs/Tins Daily: 1 Used Tobacco, but Quit: Yes Month Tobacco Last Used: December Second Hand Smoke Exposure: No - Caffeine Use Caffeine Use: Reports: None - Recreational Drug Use Recreational Drug Use: No ED ROS GENERAL - Review of Systems Review Of Systems: ROS reveals no pertinent complaints other than HPI. ED EXAM, GENERAL - Physical Exam Exam: See Below Exam Limited By: No Limitations General Appearance: Alert, WD/WN, No Apparent Distress Ears: Hearing Grossly Normal Throat/Mouth: Normal Voice, No Airway Compromise Head: Atraumatic Neck: Non-Tender, Full Range of Motion Respiratory/Chest: No Respiratory Distress, No Accessory Muscle Use, Rales, Rhonchi. No: Decreased Breath Sounds, Retractions Cardiovascular: Regular Rate, Rhythm GI/Abdominal: Soft, Non-Tender Neurological: Alert, Oriented, Normal Cognition, No Motor/Sensory Deficits Psychiatric: Normal Affect, Normal Mood Skin Exam: Warm, Dry, Normal Color Lymphatic: No Adenopathy Course - Vital Signs Last Recorded V/S: Last Vital Signs Temp 36.4 C 01/30/17 05:15 Pulse 83 01/30/17 05:15 Resp 20 01/30/17 05:15 BP 109/65 01/30/17 05:15 Pulse Ox 100 01/30/17 05:15 - Orders/Labs/Meds Orders: Active Orders 24 hr Category Date Time Status CULTURE BLOOD [BC] Stat Lab 01/30/17 06:25 Received Labs: Laboratory Tests 01/30/17 01/30/17 01/30/17 Range/Units 05:17 05:17 05:17 WBC 24.4 H (5.0-10.0) 10^3/uL RBC 2.69 L (4.6-6.2) 10^6/uL Hgb 8.4 L (14.0-18.0) g/dL Hct 27.4 L (40.0-54.0) % MCV 101.9 H (80-100) fL MCH 31.2 (27.0-34.0) pg MCHC 30.7 L (33.0-35.0) g/dL RDW Not Reportable RDW Coeff of Benito Not Reportable Plt Count 132 L (150-450) 10^3/uL MPV Not Reportable Neutrophils % (Manual) 35 % Band Neutrophils % 11 % Lymphocytes % (Manual) 29 % Monocytes % (Manual) 4 % Eosinophils % (Manual) 3 % Metamyelocytes % 11 Myelocytes % 7 PT 13.4 H (9.0-12.0) SEC INR 1.3 H (0.9-1.2) APTT 31.4 (22.0-34.0) SEC Sodium 143 (135-145) mmol/L Potassium 4.5 (3.6-5.0) mmol/L Chloride 108 (101-111) mmol/L Carbon Dioxide 24.0 (21.0-31.0) mmol/L Anion Gap 15.5 BUN 21 H (7-18) mg/dL Creatinine 1.6 H (0.6-1.3) mg/dL Est Cr Clr Drug Dosing 40.10 mL/min Estimated GFR (MDRD) 42 BUN/Creatinine Ratio 13.12 Glucose 98 (74-105) mg/dL Lactic Acid (0.5-2.2) mmol/L Calcium 8.7 (8.4-10.2) mg/dl Total Bilirubin 1.5 H (0.2-1.0) mg/dL AST 34 (10-42) IU/L ALT 14 (10-60) IU/L Alkaline Phosphatase 205 H (42-121) IU/L B-Natriuretic Peptide (0-100) pg/ml Total Protein 6.9 (6.7-8.2) g/dl Albumin 3.0 L (3.2-5.5) g/dl Globulin 3.9 Albumin/Globulin Ratio 0.77 01/30/17 01/30/17 Range/Units 06:25 06:25 WBC (5.0-10.0) 10^3/uL RBC (4.6-6.2) 10^6/uL Hgb (14.0-18.0) g/dL Hct (40.0-54.0) % MCV (80-100) fL MCH (27.0-34.0) pg MCHC (33.0-35.0) g/dL RDW RDW Coeff of Benito Plt Count (150-450) 10^3/uL MPV Neutrophils % (Manual) % Band Neutrophils % % Lymphocytes % (Manual) % Monocytes % (Manual) % Eosinophils % (Manual) % Metamyelocytes % Myelocytes % PT (9.0-12.0) SEC INR (0.9-1.2) APTT (22.0-34.0) SEC Sodium (135-145) mmol/L Potassium (3.6-5.0) mmol/L Chloride (101-111) mmol/L Carbon Dioxide (21.0-31.0) mmol/L Anion Gap BUN (7-18) mg/dL Creatinine (0.6-1.3) mg/dL Est Cr Clr Drug Dosing mL/min Estimated GFR (MDRD) BUN/Creatinine Ratio Glucose (74-105) mg/dL Lactic Acid 1.7 (0.5-2.2) mmol/L Calcium (8.4-10.2) mg/dl Total Bilirubin (0.2-1.0) mg/dL AST (10-42) IU/L ALT (10-60) IU/L Alkaline Phosphatase (42-121) IU/L B-Natriuretic Peptide 175 H (0-100) pg/ml Total Protein (6.7-8.2) g/dl Albumin (3.2-5.5) g/dl Globulin Albumin/Globulin Ratio - Re-Assessments/Exams Free Text/Narrative Re-Assessment/Exam: 01/30/17 07:[address] Connolly who kindly accepted pt. Departure - Departure Time of Disposition: 07:02 Disposition: Admitted As Inpatient 66 Condition: Fair Clinical Impression: Renal failure (ARF), acute on chronic Qualifiers: Acute renal failure type: unspecified Chronic kidney disease stage: unspecified stage Qualified Code(s): N17.9 - Acute kidney failure, unspecified; N18.9 - Chronic kidney disease, unspecified Pneumonia Qualifiers: Pneumonia type: due to unspecified organism Laterality: bilateral Lung location : lower lobe of lung Qualified Code(s): J18.9 - Pneumonia, unspecified organism - Discharge Information Forms: ED Department Discharge - My Orders Last 24 Hours: My Active Orders 01/30/17 06:25 CULTURE BLOOD [BC] Stat - Assessment/Plan Last 24 Hours: My Active Orders 01/30/17 06:25 CULTURE BLOOD [BC] Stat
[2017-01-30] MEDS ORDERED: Piperacillin/Tazobactam 3.375 GM in Sodium Chloride 0.9% 100 ML IV SCH (08:00)
[2017-01-30] MEDS ORDERED: Acetaminophen 325 MG Tab PO PRN (08:10)
[2017-01-30] MEDS ORDERED: Zolpidem 5 MG Tab PO PRN (08:10)
[2017-01-30] MEDS ORDERED: Polyethylene Glycol 3350 Powder 17 GM Packet PO PRN (08:10)
[2017-01-30] MEDS ORDERED: Magnesium Hydroxide 400 MG/5 ML Susp 30 ML Cup PO PRN (08:10)
[2017-01-30] MEDS ORDERED: Albuterol 0.083% 2.5 MG/3 ML Neb Soln NEB PRN (08:10)
[2017-01-30] MEDS ORDERED: Docusate Sodium 100 MG Cap PO PRN (08:10)
[2017-01-30] MEDS ORDERED: guaiFENesin/Dextromethorphan 100-10 MG/5 ML Soln 5 ML Cup PO PRN (08:14)
[2017-01-30] MEDS ORDERED: Benzonatate 100 MG Cap PO PRN (08:14)
[2017-01-30] MEDS: Piperacillin/Tazobactam 3.375 GM in Sodium Chloride 0.9% 100 ML IV SCH ×3 (09:41→22:02)
[2017-01-30] MEDS: Sodium Chloride 0.9% 10 ML Syringe FLUSH PRN ×3 (09:41→22:42)
--- NOTE | 2017-01-30 09:50 | PCM.HP ---
H&P History of Present Illness - General Date of Service: 01/30/17 Admit Problem/Dx: Admission Diagnosis/Problem Admission Diagnosis/Problem Pneumonia Source of Information: Patient, Custodial Records (talked to nurse), Provider (ER dr. Brantley) - History of Present Illness Initial Comments - Free Text/Narative: the patient is an 82-year-old gentleman with a history of atrial fibrillation, myelodysplastic syndrome, anemia, chronic kidney disease. The patient was recently hospitalized with pneumonia with pleural effusion requiring drainage. Cultures grew Stenotrophomonas maltophilia, MRSA screening test was positive but not from blood culture nor from pleural fluid. The patient's recent hospital course was complicated with the renal failure nephrolithiasis. The stone was removed. The patient is off anticoagulation for atrial fibrillation due to hematuria. The patient was [facility] to [facility]. He continued to have a cough. No fever. Occasional blood tinged sputum. Came to the emergency room was noted to have leukocytosis and abnormal chest x- ray. No chest pain, chronic shortness of breath. - Related Data Allergies/Adverse Reactions: Allergies Allergy/AdvReac Type Severity Reaction Status Date / Time No Known Allergies Allergy Verified 01/30/17 08:04 Home Medications: Home Meds Aspirin [Halfprin] 81 mg PO BRK 07/01/16 [History] Acetaminophen 500 mg PO Q6H PRN 10/28/16 [History] Ferrous Gluconate 324 mg PO WITHDINNER 10/28/16 [History] Pantoprazole [ProTONIX] 40 mg PO ACBREAKFAST 10/28/16 [History] Metoprolol Tartrate [Lopressor] 12.5 mg PO BID #0 11/15/16 [Rx] Digoxin [Lanoxin] 125 mcg PO WITHBREAKFAST 12/12/16 [History] Sertraline [Zoloft] 25 mg PO BEDTIME 12/27/16 [History] Bisacodyl [Biscolax] 1 supp RECTAL ASDIRECTED PRN 01/30/17 [History] Ciprofloxacin HCl [Cipro] 1 tab PO BID 01/30/17 [History] Dextrose [Glucose Gel] 1 applic PO ASDIRECTED PRN 01/30/17 [History] Escitalopram Oxalate 10 mg PO DAILY 01/30/17 [History] Glucagon,Human Recombinant [Glucagon Emergency Kit] 1 applic SQ ASDIRECTED PRN 01/30/17 [History] Magnesium Hydroxide [Milk of Magnesia] 30 ml PO ASDIRECTED PRN 01/30/17 [History ] Na Phos,M-B/Na Phos,DI-B [Fleet Enema] 1 applic RECTAL ASDIRECTED PRN 01/30/17 [ History] Past Medical History HEENT History: Reports: Cataract, Hard of Hearing, Impaired Vision Other HEENT History: bilateral catarct surgery[place] right ear Cardiovascular History: Reports: Afib, Hypertension Respiratory History: Reports: Pneumonia, Recurrent Gastrointestinal History: Reports: Bowel Obstruction, Chronic Constipation, GERD Genitourinary History: Reports: Acute Renal Failure, Renal Calculus Musculoskeletal History: Reports: Osteoarthritis Other Musculoskeletal History: arthritis right knee. right 5th toe amputated Neurological History: Reports: None Psychiatric History: Reports: Depression Endocrine/Metabolic History: Reports: None, Hyperparathyroidism Hematologic History: Reports: Anemia, Blood Transfusion(s) Immunologic History: Reports: None Oncologic (Cancer) History: Reports: Other (See Below) Other Oncologic History: myeloproliferative disease Dermatologic History: Reports: Other (See Below) Other Dermatologic History: steri strips to left forearm due top falling on dresser - Infectious Disease History Infectious Disease History: Reports: MRSA - Past Surgical History Head Surgeries/Procedures: Reports: None Social & Family History - Family History Family Medical History: Noncontributory Cardiac: Reports: Afib GI: Reports: None Psychiatric: Reports: None Endocrine/Metabolic: Reports: None - Tobacco Use Smoking Status *Q: Former Smoker Years of Tobacco use: 30 Packs/Tins Daily: 1 Used Tobacco, but Quit: Yes Month Tobacco Last Used: unknown Second Hand Smoke Exposure: No - Caffeine Use Caffeine Use: Reports: None - Recreational Drug Use Recreational Drug Use: No H&P Review of Systems - Review of Systems: Review Of Systems: See Below General: Denies: Fever Pulmonary: Reports: Shortness of Breath (chronic) Cardiovascular: Denies: Chest Pain Gastrointestinal: Denies: Abdominal Pain Genitourinary: Reports: Other (has je). Denies: Dysuria Exam - Exam Exam: See Below - Vital Signs Vital Signs: Last Vital Signs Temp 37.1 C 01/30/17 08:10 Pulse 76 01/30/17 08:10 Resp 16 01/30/17 08:10 BP 109/60 01/30/17 08:10 Pulse Ox 98 01/30/17 08:10 Weight: 77.383 kg - Exam Quality Assessment: Supplemental Oxygen Neck: Supple Lungs: Rhonchi (basilar) Cardiovascular: Irregular Rhythm GI/Abdominal Exam: Normal Bowel Sounds, Soft, Non-Tender Extremities: No Pedal Edema - Patient Data Result Diagrams: 01/30/17 05:17 01/30/17 05:17 Imaging Impressions Last 24 hrs: chest x-ray per my reading shows bilateral lower lobe opacities. *Q Meaningful Use (ADM) - VTE *Q VTE Criteria *Q: - Stroke *Q Stroke Criteria *Q: - AMI *Q AMI Criteria *Q: - Problem List (1) Pneumonia SNOMED Code(s): 008562877 ICD Code: J18.9 - PNEUMONIA, UNSPECIFIED ORGANISM Status: Acute Current Visit: Yes Qualifiers: Pneumonia type: due to unspecified organism Laterality: bilateral Lung location: lower lobe of lung Qualified Code(s): J18.9 - Pneumonia, unspecified organism (2) A-fib SNOMED Code(s): 06432982 ICD Code: I48.91 - UNSPECIFIED ATRIAL FIBRILLATION Status: Chronic Current Visit: No Qualifiers: Atrial fibrillation type: chronic Qualified Code(s): I48.2 - Chronic atrial fibrillation Problem List Initiated/Reviewed/Updated: Yes Orders Last 24hrs: Active Orders 24 hr Category Date Time Status VANCOMYCIN TROUGH [CHEM] Routine Lab 02/01/17 08:30 Ordered Aspirin [Halfprin] Med 01/30/17 09:45 Ordered 81 mg PO BRK Benzonatate [Tessalon Perles] Med 01/30/17 08:14 Active 200 mg PO TID PRN Dextromethorphan/guaiFENesin [Robitussin DM] Med 01/30/17 08:14 Active 10 ml PO Q6H PRN Digoxin [Lanoxin] Med 01/31/17 08:00 Ordered 125 mcg PO WITHBREAKFAST Escitalopram [Lexapro] Med 01/31/17 09:00 Ordered 10 mg PO DAILY Ferrous Gluconate [Ferrous Gluconate] Med 01/30/17 18:00 Ordered 324 mg PO WITHDINNER Metoprolol Tartrate [Lopressor] Med 01/30/17 21:00 Ordered 12.5 mg PO BID Pantoprazole [ProTONIX] Med 01/31/17 06:00 Ordered 40 mg PO ACBREAKFAST Piperacillin/Tazobactam [Zosyn] 3.375 gm Med 01/30/17 10:00 Active Sodium Chloride 0.9% [Normal Saline] 100 ml IV Q6H Sertraline [Zoloft] Med 01/30/17 21:00 Ordered 25 mg PO BEDTIME Vancomycin [Vancocin] 1 gm Med 01/30/17 09:00 Active Sodium Chloride 0.9% [Normal Saline] 250 ml IV Q24H Medication Orders Acetaminophen (Tylenol) 650 mg PO Q4H PRN PRN Reason: Pain (Mild 1-3)/fever Albuterol (Proventil Neb Soln) 2.5 mg NEB Q2H PRN PRN Reason: shortness of breath/wheezing Aspirin (Halfprin) 81 mg PO BRK DANYA Benzonatate (Tessalon Perles) 200 mg PO TID PRN PRN Reason: Cough Digoxin (Lanoxin) 125 mcg PO WITHBREAKFAST [facility] Docusate Sodium (Colace) 100 mg PO BID PRN PRN Reason: Constipation Escitalopram Oxalate (Lexapro) 10 mg PO DAILY [facility] Guaifenesin/Phenylephrine HCl (Robitussin Dm) 10 ml PO Q6H PRN PRN Reason: Cough Heparin Sodium (Porcine) (Heparin Sodium) 5,000 units SUBCUT Q8HR [facility] Vancomycin HCl 1 gm/ Sodium (Chloride) 250 mls @ 166.667 mls/hr IV Q24H [facility] Piperacillin Sod/Tazobactam (Sod 3.375 gm/ Sodium Chloride) 100 mls @ 200 mls/ hr IV Q6H [facility] Last Admin: 01/30/17 09:41 Dose: 200 mls/hr Magnesium Hydroxide (Milk Of Magnesia) 30 ml PO Q12H PRN PRN Reason: Constipation Metoprolol Tartrate (Lopressor) 12.5 mg PO BID [facility] Non-Formulary Medication (Ferrous Gluconate [Ferrous Gluconate]) 324 mg PO WITHDINNER [facility] Non-Formulary Medication (Sertraline [Zoloft]) 25 mg PO BEDTIME [facility] Pantoprazole Sodium (Protonix) 40 mg PO ACBREAKFAST [facility] Polyethylene Glycol (Miralax) 17 gm PO DAILY PRN PRN Reason: Constipation Senna/Docusate Sodium (Senna Plus) 1 tab PO BEDTIME PRN PRN Reason: Constipation Sodium Chloride (Saline Flush) 10 ml FLUSH ASDIRECTED PRN PRN Reason: Keep Vein Open Last Admin: 01/30/17 09:41 Dose: 10 ml Vancomycin HCl (Pharmacy To Dose - Vancomycin) 1 dose .XX ASDIRECTED DANYA Zolpidem Tartrate (Ambien) 5 mg PO BEDTIME PRN PRN Reason: Sleep Assessment/Plan Comment:: Pneumonia leukocytosis and abnormal chest x-ray With recent pneumonia, pleural effusion it is unclear how much of this is a new process versus resolving Previous pneumonia. Will obtain blood culture, sputum culture Will treat with Zosyn and vancomycin for possible MRSA and or gram-negative pneumonia related to healthcare associated pneumonia Atrial fibrillation Rate appears controlled Continue digoxin Hold anticoagulation due to hematuria Chronic kidney disease stage II to iii Will follow Anemia with a history of myelodysplastic syndrome Monitor blood counts DVT prophylaxis subcutaneous heparin
[2017-01-30] MEDS: Aspirin 81 MG Tab.EC PO SCH (11:55)
[2017-01-30] MEDS: Heparin Sodium 5,000 Units/ML Vial SUBCUT SCH ×2 (14:18→22:00)
[2017-01-30] MEDS: Sertraline 50 MG Tab PO SCH (21:58)
[2017-01-30] MEDS: Metoprolol Tartrate 25 MG Tab PO SCH (21:59)
[2017-01-31] MEDS: Piperacillin/Tazobactam 3.375 GM in Sodium Chloride 0.9% 100 ML IV SCH ×4 (04:24→22:54)
[2017-01-31] MEDS: Sodium Chloride 0.9% 10 ML Syringe FLUSH PRN ×8 (04:24→23:36)
[2017-01-31] MEDS: Pantoprazole 40 MG Tab.CR PO SCH (05:56)
[2017-01-31] MEDS: Heparin Sodium 5,000 Units/ML Vial SUBCUT SCH ×3 (05:56→23:11)
[2017-01-31] MEDS: Aspirin 81 MG Tab.EC PO SCH (09:18)
[2017-01-31] MEDS: Digoxin 125 MCG Tab PO SCH (09:18)
[2017-01-31] MEDS: Escitalopram 10 MG Tab PO SCH (09:19)
[2017-01-31] MEDS: Metoprolol Tartrate 25 MG Tab PO SCH ×2 (09:24→22:51)
--- NOTE | 2017-01-31 11:31 | PCM.PN ---
- General Info Date of Service: 01/31/17 Admission Dx/Problem (Free Text): Admission Diagnosis/Problem Admission Diagnosis/Problem Pneumonia Subjective Update: feeling ok, some cough, no sob no cp no fever no significant hemoptysis - Review of Systems General: Denies: Fever, Weakness Pulmonary: Denies: Shortness of Breath Cardiovascular: Denies: Chest Pain Gastrointestinal: Denies: Abdominal Pain - Patient Data Vitals - Most Recent: Last Vital Signs Temp 36.9 C 01/31/17 11:06 Pulse 81 01/31/17 11:06 Resp 18 01/31/17 11:06 BP 100/56 L 01/31/17 11:06 Pulse Ox 100 01/31/17 11:06 Weight - Most Recent: 77.383 kg I&O - Last 24 Hours: Intake & Output 01/30/17 01/31/17 01/31/17 22:59 06:59 14:59 Intake Total 398 300 574 Output Total 750 300 Balance -352 0 574 Lab Results Last 24 Hours: Laboratory Results - last 24 hr 01/31/17 01/31/17 Range/Units 06:25 06:25 WBC 24.7 H (5.0-10.0) 10^3/uL RBC 2.35 L (4.6-6.2) 10^6/uL Hgb 7.3 L (14.0-18.0) g/dL Hct 23.8 L (40.0-54.0) % MCV 101.3 H (80-100) fL MCH 31.1 (27.0-34.0) pg MCHC 30.7 L (33.0-35.0) g/dL Plt Count 134 L (150-450) 10^3/uL Neut % (Auto) 83.7 H (42.2-75.2) % Lymph % (Auto) 6.9 L (20.5-50.1) % Clare % (Auto) 5.2 (2-8) % Eos % (Auto) 2.3 (1.0-3.0) % Baso % (Auto) 1.9 H (0.0-1.0) % Add Manual Diff Yes Neutrophils % (Manual) 56 % Band Neutrophils % 5 % Lymphocytes % (Manual) 8 % Monocytes % (Manual) 2 % Eosinophils % (Manual) 6 % Metamyelocytes % 3 Myelocytes % 20 Nucleated RBCs 1 /100WBC Platelet Estimate Decreased Sodium 141 (135-145) mmol/L Potassium 4.3 (3.6-5.0) mmol/L Chloride 107 (101-111) mmol/L Carbon Dioxide 24.0 (21.0-31.0) mmol/L Anion Gap 14.3 BUN 20 H (7-18) mg/dL Creatinine 1.7 H (0.6-1.3) mg/dL Est Cr Clr Drug Dosing 36.67 mL/min Estimated GFR (MDRD) 39 Glucose 100 (74-105) mg/dL Calcium 8.2 L (8.4-10.2) mg/dl Earle Results Last 24 Hours: Microbiology 01/30/17 08:25 Aerobic Blood Culture - Preliminary Blood - Venous NO GROWTH AFTER 1 DAY Anaerobic Blood Culture - Preliminary NO GROWTH AFTER 1 DAY 01/30/17 16:15 Gram Stain - Final Sputum - Expectorated Med Orders - Current: Current Medications Acetaminophen (Tylenol) 650 mg PO Q4H PRN PRN Reason: Pain (Mild 1-3)/fever Albuterol (Proventil Neb Soln) 2.5 mg NEB Q2H PRN PRN Reason: shortness of breath/wheezing Aspirin (Halfprin) 81 mg PO BRK [facility] Last Admin: 01/31/17 09:18 Dose: 81 mg Benzonatate (Tessalon Perles) 200 mg PO TID PRN PRN Reason: Cough Digoxin (Lanoxin) 125 mcg PO WITHBREAKFAST [facility] Last Admin: 01/31/17 09:18 Dose: 125 mcg Docusate Sodium (Colace) 100 mg PO BID PRN PRN Reason: Constipation Escitalopram Oxalate (Lexapro) 10 mg PO DAILY [facility] Last Admin: 01/31/17 09:19 Dose: 10 mg Guaifenesin/Phenylephrine HCl (Robitussin Dm) 10 ml PO Q6H PRN PRN Reason: Cough Heparin Sodium (Porcine) (Heparin Sodium) 5,000 units SUBCUT Q8HR [facility] Last Admin: 01/31/17 05:56 Dose: Not Given Vancomycin HCl 1 gm/ Sodium (Chloride) 250 mls @ 166.667 mls/hr IV Q24H [facility] Last Admin: 01/31/17 09:23 Dose: 166.667 mls/hr Piperacillin Sod/Tazobactam (Sod 3.375 gm/ Sodium Chloride) 100 mls @ 200 mls/ hr IV Q6H [facility] Last Admin: 01/31/17 11:11 Dose: 200 mls/hr Magnesium Hydroxide (Milk Of Magnesia) 30 ml PO Q12H PRN PRN Reason: Constipation Metoprolol Tartrate (Lopressor) 12.5 mg PO BID [facility] Last Admin: 01/31/17 09:24 Dose: Not Given Non-Formulary Medication (Ferrous Gluconate [Ferrous Gluconate]) 324 mg PO WITHDINNER [facility] Pantoprazole Sodium (Protonix) 40 mg PO ACBREAKFAST [facility] Last Admin: 01/31/17 05:56 Dose: 40 mg Polyethylene Glycol (Miralax) 17 gm PO DAILY PRN PRN Reason: Constipation Senna/Docusate Sodium (Senna Plus) 1 tab PO BEDTIME PRN PRN Reason: Constipation Sertraline HCl (Zoloft) 25 mg PO BEDTIME [facility] Last Admin: 01/30/17 21:58 Dose: 25 mg Sodium Chloride (Saline Flush) 10 ml FLUSH ASDIRECTED PRN PRN Reason: Keep Vein Open Last Admin: 01/31/17 10:58 Dose: 10 ml Vancomycin HCl (Pharmacy To Dose - Vancomycin) 1 dose .XX ASDIRECTED [facility] Zolpidem Tartrate (Ambien) 5 mg PO BEDTIME PRN PRN Reason: Sleep Discontinued Medications Piperacillin Sod/Tazobactam (Sod 3.375 gm/ Sodium Chloride) 100 mls @ 200 mls/ hr IV Q6H [facility] Last Admin: 01/30/17 09:42 Dose: Not Given Vancomycin HCl (Pharmacy To Dose - Vancomycin) 1 dose .XX ONETIME ONE Stop: 01/30/17 07:59 Last Admin: 01/30/17 10:21 Dose: Not Given - Exam General: Alert, Oriented Neck: Supple Lungs: Clear to Auscultation, Normal Respiratory Effort Cardiovascular: Regular Rate GI/Abdominal Exam: Normal Bowel Sounds, Soft, Non-Tender Extremities: Normal Inspection, No Pedal Edema - Problem List & Annotations (1) Pneumonia SNOMED Code(s): 729099481 Code(s): J18.9 - PNEUMONIA, UNSPECIFIED ORGANISM Status: Acute Current Visit: Yes Qualifiers: Pneumonia type: due to unspecified organism Laterality: bilateral Lung location: lower lobe of lung Qualified Code(s): J18.9 - Pneumonia, unspecified organism (2) A-fib SNOMED Code(s): 23441363 Code(s): I48.91 - UNSPECIFIED ATRIAL FIBRILLATION Status: Chronic Current Visit: No Qualifiers: Atrial fibrillation type: chronic Qualified Code(s): I48.2 - Chronic atrial fibrillation - Problem List Review Problem List Initiated/Reviewed/Updated: Yes - My Orders Last 24 Hours: My Active Orders 01/30/17 18:00 Ferrous Gluconate [Ferrous Gluconate] 324 mg PO WITHDINNER 01/30/17 21:00 Metoprolol Tartrate [Lopressor] 12.5 mg PO BID Sertraline [Zoloft] 25 mg PO BEDTIME 01/31/17 06:00 Pantoprazole [ProTONIX] 40 mg PO ACBREAKFAST 01/31/17 08:00 Digoxin [Lanoxin] 125 mcg PO WITHBREAKFAST 01/31/17 09:00 Escitalopram [Lexapro] 10 mg PO DAILY 02/01/17 05:15 BASIC METABOLIC PANEL,BMP [CHEM] AM CBC WITH AUTO DIFF [HEME] AM - Plan Plan:: Pneumonia leukocytosis and abnormal chest x-ray With recent pneumonia, pleural effusion it is unclear how much of this is a new process versus resolving Previous pneumonia. pending blood culture, sputum culture Will treat with Zosyn and vancomycin for possible MRSA and or gram-negative pneumonia related to healthcare associated pneumonia Atrial fibrillation Rate appears controlled Continue digoxin Hold anticoagulation due to hematuria Chronic kidney disease stage II to III Will follow creatinine Anemia with a history of myelodysplastic syndrome no apparent significant bleeding will transfuse 2 u prbc, discussed risks, benefits, alternatives with pt Monitor blood counts send peripheral smear DVT prophylaxis subcutaneous heparin
[2017-01-31] MEDS: Ferrous Sulfate 325 MG Tab PO SCH ×2 (17:23)
[2017-01-31] MEDS: Sertraline 50 MG Tab PO SCH (22:52)
[2017-02-01] MEDS: Sodium Chloride 0.9% 10 ML Syringe FLUSH PRN ×5 (04:26→22:21)
[2017-02-01] MEDS: Piperacillin/Tazobactam 3.375 GM in Sodium Chloride 0.9% 100 ML IV SCH ×4 (04:32→21:50)
[2017-02-01] MEDS: Pantoprazole 40 MG Tab.CR PO SCH (06:00)
[2017-02-01] MEDS: Heparin Sodium 5,000 Units/ML Vial SUBCUT SCH ×3 (06:00→21:51)
[2017-02-01] MEDS: Escitalopram 10 MG Tab PO SCH (09:41)
[2017-02-01] MEDS: Digoxin 125 MCG Tab PO SCH (09:41)
[2017-02-01] MEDS: Aspirin 81 MG Tab.EC PO SCH (09:41)
[2017-02-01] MEDS: Metoprolol Tartrate 25 MG Tab PO SCH ×2 (09:45→20:22)
--- NOTE | 2017-02-01 12:27 | PCM.PN ---
- General Info Date of Service: 02/01/17 Admission Dx/Problem (Free Text): Admission Diagnosis/Problem Admission Diagnosis/Problem Pneumonia Subjective Update: feeling ok, some cough, no sob no cp no fever no significant hemoptysis remaining stable with leukocytosis but no clinical symptoms Functional Status: Reports: Pain Controlled - Review of Systems General: Denies: Fever, Weakness Pulmonary: Denies: Shortness of Breath Cardiovascular: Denies: Chest Pain Gastrointestinal: Denies: Abdominal Pain Genitourinary: Denies: Dysuria - Patient Data Vitals - Most Recent: Last Vital Signs Temp 36.2 C 02/01/17 11:17 Pulse 58 L 02/01/17 11:17 Resp 20 02/01/17 11:17 BP 102/67 02/01/17 11:17 Pulse Ox 97 02/01/17 11:17 Weight - Most Recent: 79.651 kg I&O - Last 24 Hours: Intake & Output 01/31/17 02/01/17 02/01/17 22:59 06:59 14:59 Intake Total 1445 467 578 Output Total 850 Balance 1445 -383 578 Lab Results Last 24 Hours: Laboratory Results - last 24 hr 01/31/17 02/01/17 02/01/17 Range/Units 06:25 08:25 08:25 WBC 25.8 H* (5.0-10.0) 10^3/uL RBC 2.94 L (4.6-6.2) 10^6/uL Hgb 9.1 L (14.0-18.0) g/dL Hct 28.6 L (40.0-54.0) % MCV 97.3 (80-100) fL MCH 31.0 (27.0-34.0) pg MCHC 31.8 L (33.0-35.0) g/dL Plt Count 135 L (150-450) 10^3/uL Add Manual Diff Yes Neutrophils % (Manual) 38 % Band Neutrophils % 12 % Lymphocytes % (Manual) 11 % Monocytes % (Manual) 1 % Eosinophils % (Manual) 5 % Metamyelocytes % 12 Myelocytes % 21 Nucleated RBCs 2 /100WBC Sodium (135-145) mmol/L Potassium (3.6-5.0) mmol/L Chloride (101-111) mmol/L Carbon Dioxide (21.0-31.0) mmol/L Anion Gap BUN (7-18) mg/dL Creatinine (0.6-1.3) mg/dL Est Cr Clr Drug Dosing mL/min Estimated GFR (MDRD) Glucose (74-105) mg/dL Calcium (8.4-10.2) mg/dl Vancomycin Trough 12.9 (10-15) ug/ml Blood Type O POSITIVE Gel Antibody Screen Negative Crossmatch See Detail 02/01/17 Range/Units 08:25 WBC (5.0-10.0) 10^3/uL RBC (4.6-6.2) 10^6/uL Hgb (14.0-18.0) g/dL Hct (40.0-54.0) % MCV (80-100) fL MCH (27.0-34.0) pg MCHC (33.0-35.0) g/dL Plt Count (150-450) 10^3/uL Add Manual Diff Neutrophils % (Manual) % Band Neutrophils % % Lymphocytes % (Manual) % Monocytes % (Manual) % Eosinophils % (Manual) % Metamyelocytes % Myelocytes % Nucleated RBCs /100WBC Sodium 141 (135-145) mmol/L Potassium 4.3 (3.6-5.0) mmol/L Chloride 108 (101-111) mmol/L Carbon Dioxide 23.0 (21.0-31.0) mmol/L Anion Gap 14.3 BUN 20 H (7-18) mg/dL Creatinine 1.6 H (0.6-1.3) mg/dL Est Cr Clr Drug Dosing 40.10 mL/min Estimated GFR (MDRD) 42 Glucose 91 (74-105) mg/dL Calcium 8.3 L (8.4-10.2) mg/dl Vancomycin Trough (10-15) ug/ml Blood Type Gel Antibody Screen Crossmatch Earle Results Last 24 Hours: Microbiology 01/30/17 08:25 Aerobic Blood Culture - Preliminary Blood - Venous NO GROWTH AFTER 2 DAYS Anaerobic Blood Culture - Preliminary NO GROWTH AFTER 2 DAYS 01/30/17 16:15 Gram Stain - Final Sputum - Expectorated Sputum Culture - Preliminary Med Orders - Current: Current Medications Acetaminophen (Tylenol) 650 mg PO Q4H PRN PRN Reason: Pain (Mild 1-3)/fever Albuterol (Proventil Neb Soln) 2.5 mg NEB Q2H PRN PRN Reason: shortness of breath/wheezing Aspirin (Halfprin) 81 mg PO BRK [facility] Last Admin: 02/01/17 09:41 Dose: 81 mg Benzonatate (Tessalon Perles) 200 mg PO TID PRN PRN Reason: Cough Digoxin (Lanoxin) 125 mcg PO WITHBREAKFAST [facility] Last Admin: 02/01/17 09:41 Dose: 125 mcg Docusate Sodium (Colace) 100 mg PO BID PRN PRN Reason: Constipation Escitalopram Oxalate (Lexapro) 10 mg PO DAILY [facility] Last Admin: 02/01/17 09:41 Dose: 10 mg Ferrous Sulfate (Ferrous Sulfate) 325 mg PO WITHDINNER [facility] Last Admin: 01/31/17 17:23 Dose: 325 mg Guaifenesin/Phenylephrine HCl (Robitussin Dm) 10 ml PO Q6H PRN PRN Reason: Cough Heparin Sodium (Porcine) (Heparin Sodium) 5,000 units SUBCUT Q8HR [facility] Last Admin: 02/01/17 06:00 Dose: Not Given Vancomycin HCl 1 gm/ Sodium (Chloride) 250 mls @ 166.667 mls/hr IV Q24H [facility] Last Admin: 02/01/17 09:47 Dose: 166.667 mls/hr Piperacillin Sod/Tazobactam (Sod 3.375 gm/ Sodium Chloride) 100 mls @ 200 mls/ hr IV Q6H [facility] Last Admin: 02/01/17 11:34 Dose: 200 mls/hr Magnesium Hydroxide (Milk Of Magnesia) 30 ml PO Q12H PRN PRN Reason: Constipation Metoprolol Tartrate (Lopressor) 12.5 mg PO BID [facility] Last Admin: 02/01/17 09:45 Dose: 12.5 mg Pantoprazole Sodium (Protonix) 40 mg PO ACBREAKFAST [facility] Last Admin: 02/01/17 06:00 Dose: 40 mg Polyethylene Glycol (Miralax) 17 gm PO DAILY PRN PRN Reason: Constipation Senna/Docusate Sodium (Senna Plus) 1 tab PO BEDTIME PRN PRN Reason: Constipation Sertraline HCl (Zoloft) 25 mg PO BEDTIME [facility] Last Admin: 01/31/17 22:52 Dose: 25 mg Sodium Chloride (Saline Flush) 10 ml FLUSH ASDIRECTED PRN PRN Reason: Keep Vein Open Last Admin: 02/01/17 05:07 Dose: 10 ml Vancomycin HCl (Pharmacy To Dose - Vancomycin) 1 dose .XX ASDIRECTED [facility] Zolpidem Tartrate (Ambien) 5 mg PO BEDTIME PRN PRN Reason: Sleep Discontinued Medications Piperacillin Sod/Tazobactam (Sod 3.375 gm/ Sodium Chloride) 100 mls @ 200 mls/ hr IV Q6H [facility] Last Admin: 01/30/17 09:42 Dose: Not Given Vancomycin HCl (Pharmacy To Dose - Vancomycin) 1 dose .XX ONETIME ONE Stop: 01/30/17 07:59 Last Admin: 01/30/17 10:21 Dose: Not Given - Exam General: Alert, Oriented Neck: Supple Lungs: Normal Respiratory Effort, Decreased Breath Sounds, Rhonchi (basilar) Cardiovascular: Regular Rate GI/Abdominal Exam: Normal Bowel Sounds, Soft, Non-Tender Extremities: No Pedal Edema - Problem List & Annotations (1) Pneumonia SNOMED Code(s): 804218598 Code(s): J18.9 - PNEUMONIA, UNSPECIFIED ORGANISM Status: Acute Current Visit: Yes Qualifiers: Pneumonia type: due to unspecified organism Laterality: bilateral Lung location: lower lobe of lung Qualified Code(s): J18.9 - Pneumonia, unspecified organism (2) A-fib SNOMED Code(s): 62227528 Code(s): I48.91 - UNSPECIFIED ATRIAL FIBRILLATION Status: Chronic Current Visit: No Qualifiers: Atrial fibrillation type: chronic Qualified Code(s): I48.2 - Chronic atrial fibrillation - Problem List Review Problem List Initiated/Reviewed/Updated: Yes - My Orders Last 24 Hours: My Active Orders 01/31/17 11:31 Transfuse Red Blood Cells [COMM] Routine - Plan Plan:: Pneumonia leukocytosis and abnormal chest x-ray With recent pneumonia, pleural effusion it is unclear how much of this is a new process versus resolving Previous pneumonia. 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 - I have called dr. Lim - discussed case - will set up out pt appt. 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
[2017-02-01] MEDS: Ferrous Sulfate 325 MG Tab PO SCH (17:43)
[2017-02-01] MEDS: Sertraline 50 MG Tab PO SCH (20:20)
[2017-02-02] MEDS: Sodium Chloride 0.9% 10 ML Syringe FLUSH PRN ×3 (03:46→04:30)
[2017-02-02] MEDS: Piperacillin/Tazobactam 3.375 GM in Sodium Chloride 0.9% 100 ML IV SCH ×2 (03:57→11:14)
[2017-02-02] MEDS: Pantoprazole 40 MG Tab.CR PO SCH (05:55)
[2017-02-02] MEDS: Heparin Sodium 5,000 Units/ML Vial SUBCUT SCH (05:56)
[2017-02-02] MEDS: Digoxin 125 MCG Tab PO SCH (09:06)
[2017-02-02] MEDS: Escitalopram 10 MG Tab PO SCH (09:06)
[2017-02-02] MEDS: Aspirin 81 MG Tab.EC PO SCH (09:06)
[2017-02-02] MEDS: Metoprolol Tartrate 25 MG Tab PO SCH (09:08)
--- NOTE | 2017-02-02 10:15 | PCM.DCSUM1 ---
Discharge Summary - Hospital Course Free Text/Narrative:: presented to ER with cough Pneumonia leukocytosis and abnormal chest x-ray With recent pneumonia, pleural effusion it is unclear how much of this is a new process versus resolving Previous pneumonia. 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 - I have called dr. Lim - discussed case - will set up out pt appt. 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, fiborosis on BMarrow received 2 u prbc on 01/31 Atrial fibrillation Rate appears controlled Continue digoxin Hold full dose anticoagulation due to h/o hematuria - Discharge Data Discharge Date: 02/02/17 Discharge Disposition: DC/Tfer to [facility] Condition: Good - Discharge Diagnosis/Problem(s) (1) Pneumonia SNOMED Code(s): 634385139 ICD Code: J18.9 - PNEUMONIA, UNSPECIFIED ORGANISM Status: Acute Current Visit: Yes Qualifiers: Pneumonia type: due to unspecified organism Laterality: bilateral Lung location: lower lobe of lung Qualified Code(s): J18.9 - Pneumonia, unspecified organism (2) A-fib SNOMED Code(s): 49201689 ICD Code: I48.91 - UNSPECIFIED ATRIAL FIBRILLATION Status: Chronic Current Visit: No Qualifiers: Atrial fibrillation type: chronic Qualified Code(s): I48.2 - Chronic atrial fibrillation - Patient Instructions Diet: Heart Healthy Diet Activity: As Tolerated - Discharge Plan Prescriptions/Med Rec: Amoxicillin/Potassium Clav [Augmentin 500-125 Tablet] 1 each PO TID #21 tablet Home Medications: Home Meds Aspirin [Halfprin] 81 mg PO BRK 07/01/16 [History] Acetaminophen 500 mg PO Q6H PRN 10/28/16 [History] Ferrous Gluconate 324 mg PO WITHDINNER 10/28/16 [History] Pantoprazole [ProTONIX] 40 mg PO ACBREAKFAST 10/28/16 [History] Metoprolol Tartrate [Lopressor] 12.5 mg PO BID #0 11/15/16 [Rx] Digoxin [Lanoxin] 125 mcg PO WITHBREAKFAST 12/12/16 [History] Sertraline [Zoloft] 25 mg PO BEDTIME 12/27/16 [History] Bisacodyl [Biscolax] 1 supp RECTAL ASDIRECTED PRN 01/30/17 [History] Dextrose [Glucose Gel] 1 applic PO ASDIRECTED PRN 01/30/17 [History] Escitalopram Oxalate 10 mg PO DAILY 01/30/17 [History] Glucagon,Human Recombinant [Glucagon Emergency Kit] 1 applic SQ ASDIRECTED PRN 01/30/17 [History] Magnesium Hydroxide [Milk of Magnesia] 30 ml PO ASDIRECTED PRN 01/30/17 [History ] Na Phos,M-B/Na Phos,DI-B [Fleet Enema] 1 applic RECTAL ASDIRECTED PRN 01/30/17 [ History] Amoxicillin/Potassium Clav [Augmentin 500-125 Tablet] 1 each PO TID #21 tablet 02/02/17 [Rx] Referrals: Jeremi Lim MD [Ordering Only Provider] - (in 1-2 weeks [facility] - oncology) - Discharge Summary/Plan Comment DC Time >30 min.: Yes (filling out [facility] referralpaperwork) - General Info Admission Dx/Problem (Free Text: Admission Diagnosis/Problem Admission Diagnosis/Problem Pneumonia Subjective Update: feeling ok, minimal cough, no sob no cp no fever no significant hemoptysis remaining stable with leukocytosis but no clinical symptoms Functional Status: Reports: Pain Controlled - Review of Systems General: Denies: Fever, Weakness Pulmonary: Denies: Shortness of Breath Cardiovascular: Denies: Chest Pain Gastrointestinal: Denies: Abdominal Pain - Patient Data Vitals - Most Recent: Last Vital Signs Temp 36.7 C 02/02/17 08:09 Pulse 82 02/02/17 09:08 Resp 20 02/02/17 08:09 BP 108/54 L 02/02/17 09:08 Pulse Ox 98 02/02/17 08:09 Weight - Most Recent: 79.651 kg I&O - Last 24 hours: Intake & Output 02/01/17 02/02/17 02/02/17 22:59 06:59 14:59 Intake Total 993 313 Output Total 80 386 Balance 913 -73 HUSSAIN Results - Last 24 hrs: Microbiology 01/30/17 08:25 Aerobic Blood Culture - Preliminary Blood - Venous NO GROWTH AFTER 3 DAYS Anaerobic Blood Culture - Preliminary NO GROWTH AFTER 3 DAYS 01/30/17 16:15 Gram Stain - Final Sputum - Expectorated Sputum Culture - Final Med Orders - Current: Current Medications Acetaminophen (Tylenol) 650 mg PO Q4H PRN PRN Reason: Pain (Mild 1-3)/fever Albuterol (Proventil Neb Soln) 2.5 mg NEB Q2H PRN PRN Reason: shortness of breath/wheezing Aspirin (Halfprin) 81 mg PO BRK [facility] Last Admin: 02/02/17 09:06 Dose: 81 mg Benzonatate (Tessalon Perles) 200 mg PO TID PRN PRN Reason: Cough Digoxin (Lanoxin) 125 mcg PO WITHBREAKFAST [facility] Last Admin: 02/02/17 09:06 Dose: 125 mcg Docusate Sodium (Colace) 100 mg PO BID PRN PRN Reason: Constipation Escitalopram Oxalate (Lexapro) 10 mg PO DAILY [facility] Last Admin: 02/02/17 09:06 Dose: 10 mg Ferrous Sulfate (Ferrous Sulfate) 325 mg PO WITHDINNER [facility] Last Admin: 02/01/17 17:43 Dose: 325 mg Guaifenesin/Phenylephrine HCl (Robitussin Dm) 10 ml PO Q6H PRN PRN Reason: Cough Heparin Sodium (Porcine) (Heparin Sodium) 5,000 units SUBCUT Q8HR [facility] Last Admin: 02/02/17 05:56 Dose: Not Given Vancomycin HCl 1 gm/ Sodium (Chloride) 250 mls @ 166.667 mls/hr IV Q24H [facility] Last Admin: 02/02/17 09:09 Dose: 166.667 mls/hr Piperacillin Sod/Tazobactam (Sod 3.375 gm/ Sodium Chloride) 100 mls @ 200 mls/ hr IV Q6H [facility] Last Admin: 02/02/17 03:57 Dose: 200 mls/hr Magnesium Hydroxide (Milk Of Magnesia) 30 ml PO Q12H PRN PRN Reason: Constipation Metoprolol Tartrate (Lopressor) 12.5 mg PO BID [facility] Last Admin: 02/02/17 09:08 Dose: 12.5 mg Pantoprazole Sodium (Protonix) 40 mg PO ACBREAKFAST [facility] Last Admin: 02/02/17 05:55 Dose: 40 mg Polyethylene Glycol (Miralax) 17 gm PO DAILY PRN PRN Reason: Constipation Senna/Docusate Sodium (Senna Plus) 1 tab PO BEDTIME PRN PRN Reason: Constipation Sertraline HCl (Zoloft) 25 mg PO BEDTIME [facility] Last Admin: 02/01/17 20:20 Dose: 25 mg Sodium Chloride (Saline Flush) 10 ml FLUSH ASDIRECTED PRN PRN Reason: Keep Vein Open Last Admin: 02/02/17 04:30 Dose: 10 ml Vancomycin HCl (Pharmacy To Dose - Vancomycin) 1 dose .XX ASDIRECTED [facility] Zolpidem Tartrate (Ambien) 5 mg PO BEDTIME PRN PRN Reason: Sleep Discontinued Medications Piperacillin Sod/Tazobactam (Sod 3.375 gm/ Sodium Chloride) 100 mls @ 200 mls/ hr IV Q6H [facility] Last Admin: 01/30/17 09:42 Dose: Not Given Vancomycin HCl (Pharmacy To Dose - Vancomycin) 1 dose .XX ONETIME ONE Stop: 01/30/17 07:59 Last Admin: 01/30/17 10:21 Dose: Not Given - Exam General: Reports: Alert, Oriented Neck: Reports: Supple Lungs: Reports: Clear to Auscultation, Normal Respiratory Effort Cardiovascular: Reports: Irregular Rhythm GI/Abdominal Exam: Normal Bowel Sounds, Soft Extremities: No Pedal Edema *Q Meaningful Use (DIS) - VTE *Q VTE Criteria *Q: - Stroke *Q Stroke Criteria *Q: - AMI *Q AMI Criteria *Q:
[2017-02-02 11:06] VITALS: BP 115/67
== END 2017-02-02 11:45 | DRG 194 ==
LOC: DL.ED 05:12 → UNDOADMIN 08:02 → DL.MS 08:02
PROVIDERS: ADMIT Internal Medicine; ATTEND Internal Medicine
PROC: 30233N1 Transfusion of Nonautologous Red Blood Cells into Peripheral Vein, Percutaneous Approach (ICD-10-PCS; principal; 2017-01-31)
DX: J18.9 Pneumonia, unspecified organism (principal); N17.9 Acute kidney failure, unspecified; N18.9 Chronic kidney disease, unspecified; I48.91 Unspecified atrial fibrillation; J90 Pleural effusion, not elsewhere classified; B95.62 Methicillin resistant Staphylococcus aureus infection as the cause of diseases classified elsewhere; D46.9 Myelodysplastic syndrome, unspecified; D64.9 Anemia, unspecified; I12.9 Hypertensive chronic kidney disease with stage 1 through stage 4 chronic kidney disease, or unspecified chronic kidney disease; N18.3 Chronic kidney disease, stage 3 (moderate); F32.9 Major depressive disorder, single episode, unspecified; Z87.891 Personal history of nicotine dependence; Z79.899 Other long term (current) drug therapy
CPT/HCPCS: 36415; 36430; 71010; 80048; 80053; 80202; 83605; 83880; 85025; 85610; 85730; 86850; 86900; 86901; 86920; 86922; 87040; 87070; 87205; 99284; A9270-GY; J2543; J3370; J7050; P9016

== ENCOUNTER 2017-03-29 15:40 | Emergency (ER) | payer MEDICARE, OTHER, MEDICAID ==
[2017-03-29 15:52] VITALS: BP 89/51
--- NOTE | 2017-03-29 16:08 | EDM.PDOC ---
ED HPI GENERAL MEDICAL PROBLEM - General Chief Complaint: General Stated Complaint: KIDNEY LEVELS HIGH, EVENTIDE Time Seen by Provider: 03/29/17 16:05 Source of Information: Reports: Patient History Limitations: Reports: No Limitations - History of Present Illness INITIAL COMMENTS - FREE TEXT/NARRATIVE: This 82 yo male patient reports to the ED due an elevated WBC, elevated creatinine and weight loss. The patient had labs drawn for Dr. Renae. The lab report gave a WBC of 50.90 and a creat of 2.8. The patient has been seen for a kidney stone in the past month and had a stent replaced during his last visit at [facility] in [place]. The patient's family reports the patient has not been eating or drinking in the past week. The family also reports the patient has not been taking his medications and has lost about 10 pounds in the past week. The patient reports he as been coughing "a little", but denies any pain or other problems. Onset: Today Duration: Constant Location: Reports: Generalized Severity: Severe Improves with: Reports: None Worsens with: Reports: None Associated Symptoms: Reports: No Other Symptoms - Related Data Allergies Allergy/AdvReac Type Severity Reaction Status Date / Time No Known Allergies Allergy Verified 03/11/17 00:25 Home Meds: Home Meds Aspirin [Halfprin] 81 mg PO BRK 07/01/16 [History] Acetaminophen 500 mg PO Q6H PRN 10/28/16 [History] Ferrous Gluconate 324 mg PO DAILY 10/28/16 [History] Pantoprazole [ProTONIX] 40 mg PO ACBREAKFAST 10/28/16 [History] Digoxin [Lanoxin] 125 mcg PO WITHBREAKFAST 12/12/16 [History] Bisacodyl [Biscolax] 1 supp RECTAL ASDIRECTED PRN 01/30/17 [History] Escitalopram Oxalate 10 mg PO BEDTIME 01/30/17 [History] Glucagon,Human Recombinant [Glucagon Emergency Kit] 1 applic SQ ASDIRECTED PRN 01/30/17 [History] Magnesium Hydroxide [Milk of Magnesia] 30 ml PO ASDIRECTED PRN 01/30/17 [History ] Tamsulosin [Flomax] 1 tab PO BEDTIME 02/14/17 [History] Febuxostat [Uloric] 40 mg PO DAILY 03/11/17 [History] Linezolid [Zyvox] 600 mg PO Q12H 03/11/17 [History] Menthol/Zinc Oxide [Calmoseptine] 71 gm TOP BID PRN 03/11/17 [History] Mineral Oil [Mineral Oil Enema] 118 ml RECTAL ASDIRECTED PRN 03/11/17 [History] Ruxolitinib Phosphate [Jakafi] 5 mg PO BID 03/11/17 [History] Past Medical History HEENT History: Reports: Cataract, Hard of Hearing, Impaired Vision Other HEENT History: bilateral catarct surgery,CHINIK right ear Cardiovascular History: Reports: Afib, Blood Clots/VTE/DVT, Hypertension Respiratory History: Reports: Pneumonia, Recurrent Gastrointestinal History: Reports: Bowel Obstruction, Chronic Constipation, GERD Genitourinary History: Reports: Acute Renal Failure, Renal Calculus Musculoskeletal History: Reports: Arthritis, Osteoarthritis Other Musculoskeletal History: arthritis right knee. right 5th toe amputated Neurological History: Reports: None Psychiatric History: Reports: Anxiety, Depression Endocrine/Metabolic History: Reports: Hyperparathyroidism Hematologic History: Reports: Anemia, Blood Transfusion(s) Immunologic History: Reports: None Oncologic (Cancer) History: Reports: Other (See Below) Other Oncologic History: myeloproliferative disease Dermatologic History: Reports: Other (See Below) Other Dermatologic History: numerous bruises - Infectious Disease History Infectious Disease History: Reports: Chicken Pox, Measles, Mumps - Past Surgical History Head Surgeries/Procedures: Reports: None HEENT Surgical History: Reports: Cataract Surgery Cardiovascular Surgical History: Reports: None Respiratory Surgical History: Reports: Other (See Below) Other Respiratory Surgeries/Procedures: bronchoalveolar lavage, bronch brushing , bronchial brush bx GI Surgical History: Reports: Cholecystectomy Male Surgical History: Reports: None Social & Family History - Family History Family Medical History: Noncontributory Cardiac: Reports: Afib GI: Reports: None Psychiatric: Reports: None Endocrine/Metabolic: Reports: None - Tobacco Use Smoking Status *Q: Former Smoker Years of Tobacco use: 30 Packs/Tins Daily: 1 Used Tobacco, but Quit: Yes Month Tobacco Last Used: December Second Hand Smoke Exposure: No - Caffeine Use Caffeine Use: Reports: None Caffeine Use Comment: 1 cup coffee daily - Recreational Drug Use Recreational Drug Use: No ED ROS GENERAL - Review of Systems Review Of Systems: ROS reveals no pertinent complaints other than HPI. ED EXAM, GENERAL - Physical Exam Exam: See Below Exam Limited By: No Limitations General Appearance: Alert, WD/WN, Mild Distress, Thin Eye Exam: Bilateral Eye: EOMI, Normal Inspection, PERRL Ears: Normal External Exam, Normal Canal, Hearing Grossly Normal, Normal TMs Nose: Other (dried blood bilateral nares) Throat/Mouth: Normal Inspection, Normal Lips, Normal Teeth, Normal Gums, Normal Oropharynx, Normal Voice, No Airway Compromise Head: Atraumatic, Normocephalic Neck: Normal Inspection, Supple, Non-Tender, Full Range of Motion Respiratory/Chest: No Respiratory Distress, Lungs Clear, Normal Breath Sounds, No Accessory Muscle Use, Chest Non-Tender Cardiovascular: Normal Peripheral Pulses, Regular Rate, Rhythm, No Edema, No Gallop, No JVD, No Murmur, No Rub GI/Abdominal: Normal Bowel Sounds, Soft, Non-Tender, No Organomegaly, No Distention, No Abnormal Bruit, No Mass (Male) Exam: Deferred Rectal (Males) Exam: Deferred Back Exam: Normal Inspection, Full Range of Motion, NT Extremities: Normal Inspection, Normal Range of Motion, Non-Tender, Normal Capillary Refill, No Pedal Edema Neurological: Alert, Oriented, CN II-XII Intact, Normal Cognition, Normal Gait, Normal Reflexes, No Motor/Sensory Deficits Psychiatric: Normal Affect, Normal Mood Skin Exam: Warm, Dry, Intact, Normal Color, No Rash Lymphatic: No Adenopathy Course - Vital Signs Last Recorded V/S: Last Vital Signs Temp 37.1 C 03/29/17 15:49 Pulse 88 03/29/17 15:49 Resp 18 03/29/17 15:49 BP 89/51 L 03/29/17 15:49 Pulse Ox 94 L 03/29/17 15:49 - Orders/Labs/Meds Orders: Active Orders 24 hr Category Date Time Status Meropenem [Merrem] 1 gm Med 03/29/17 18:29 Ordered Sodium Chloride 0.9% [Normal Saline] 100 ml IV ONETIME Medication Orders Meropenem 1 gm/ Sodium (Chloride) 100 mls @ 200 mls/hr IV ONETIME ONE Stop: 03/29/17 18:58 Last Admin: 03/29/17 18:35 Dose: 200 mls/hr Labs: Laboratory Tests 03/29/17 03/29/17 03/29/17 Range/Units 16:06 16:21 16:21 WBC (5.0-10.0) 10^3/uL RBC (4.6-6.2) 10^6/uL Hgb (14.0-18.0) g/dL Hct (40.0-54.0) % MCV (80-100) fL MCH (27.0-34.0) pg MCHC (33.0-35.0) g/dL Plt Count (150-450) 10^3/uL Add Manual Diff Neutrophils % (Manual) (42-75) % Band Neutrophils % % Lymphocytes % (Manual) (20-50) % Monocytes % (Manual) (2-8) % Eosinophils % (Manual) (1-3) % Metamyelocytes % Myelocytes % Sodium (135-145) mmol/L Potassium (3.6-5.0) mmol/L Chloride (101-111) mmol/L Carbon Dioxide (21.0-31.0) mmol/L Anion Gap BUN (7-18) mg/dL Creatinine (0.6-1.3) mg/dL Est Cr Clr Drug Dosing mL/min Estimated GFR (MDRD) BUN/Creatinine Ratio Glucose (74-105) mg/dL Lactic Acid 1.8 (0.5-2.2) mmol/L Calcium (8.4-10.2) mg/dl Magnesium 2.4 (1.8-2.5) mg/dL Total Bilirubin (0.2-1.0) mg/dL AST (10-42) IU/L ALT (10-60) IU/L Alkaline Phosphatase (42-121) IU/L Total Protein (6.7-8.2) g/dl Albumin (3.2-5.5) g/dl Globulin Albumin/Globulin Ratio Urine Color Dark yellow (YELLOW) Urine Appearance Turbid (CLEAR) Urine pH 6.0 (5.0-9.0) Ur Specific Clever 1.020 (1.005-1.030) Urine Protein >=300 H (NEGATIVE) Urine Glucose (UA) Negative (NEGATIVE) Urine Ketones Negative (NEGATIVE) Urine Occult Blood Moderate H (NEGATIVE) Urine Nitrite Negative (NEGATIVE) Urine Bilirubin Small H (NEGATIVE) Urine Urobilinogen 1.0 (0.2-1.0) mg/dL Ur Leukocyte Esterase Large H (NEGATIVE) Urine RBC 50-75 H /HPF Urine WBC >100 H (0-5/HPF) /HPF Ur Epithelial Cells Few /HPF Amorphous Sediment Moderate (0/HPF) /HPF Urine Bacteria Many H (0-FEW/HPF) /HPF Fine Granular Casts Few H (0/LPF) /LPF Urine Mucus Many H /LPF Urine Yeast Few H (0/HPF) /HPF 03/29/17 03/29/17 Range/Units 16:21 16:21 WBC 55.7 H* (5.0-10.0) 10^3/uL RBC 2.40 L (4.6-6.2) 10^6/uL Hgb 7.5 L D (14.0-18.0) g/dL Hct 25.6 L (40.0-54.0) % MCV 106.7 H D (80-100) fL MCH 31.3 (27.0-34.0) pg MCHC 29.3 L (33.0-35.0) g/dL Plt Count 134 L (150-450) 10^3/uL Add Manual Diff Yes Neutrophils % (Manual) 31 L (42-75) % Band Neutrophils % 5 % Lymphocytes % (Manual) 18 L (20-50) % Monocytes % (Manual) 1 L (2-8) % Eosinophils % (Manual) 1 (1-3) % Metamyelocytes % 29 Myelocytes % 15 Sodium 152 H D (135-145) mmol/L Potassium 4.0 (3.6-5.0) mmol/L Chloride 116 H (101-111) mmol/L Carbon Dioxide 21.0 (21.0-31.0) mmol/L Anion Gap 19.0 BUN 71 H D (7-18) mg/dL Creatinine 2.9 H D (0.6-1.3) mg/dL Est Cr Clr Drug Dosing 22.05 mL/min Estimated GFR (MDRD) 21 BUN/Creatinine Ratio 24.48 Glucose 144 H (74-105) mg/dL Lactic Acid (0.5-2.2) mmol/L Calcium 8.4 (8.4-10.2) mg/dl Magnesium (1.8-2.5) mg/dL Total Bilirubin 2.2 H (0.2-1.0) mg/dL AST 40 (10-42) IU/L ALT 20 (10-60) IU/L Alkaline Phosphatase 185 H (42-121) IU/L Total Protein 7.8 (6.7-8.2) g/dl Albumin 2.9 L (3.2-5.5) g/dl Globulin 4.9 Albumin/Globulin Ratio 0.59 Urine Color (YELLOW) Urine Appearance (CLEAR) Urine pH (5.0-9.0) Ur Specific Clever (1.005-1.030) Urine Protein (NEGATIVE) Urine Glucose (UA) (NEGATIVE) Urine Ketones (NEGATIVE) Urine Occult Blood (NEGATIVE) Urine Nitrite (NEGATIVE) Urine Bilirubin (NEGATIVE) Urine Urobilinogen (0.2-1.0) mg/dL Ur Leukocyte Esterase (NEGATIVE) Urine RBC /HPF Urine WBC (0-5/HPF) /HPF Ur Epithelial Cells /HPF Amorphous Sediment (0/HPF) /HPF Urine Bacteria (0-FEW/HPF) /HPF Fine Granular Casts (0/LPF) /LPF Urine Mucus /LPF Urine Yeast (0/HPF) /HPF Meds: Medications Generic Name Dose Route Start Last Admin Trade Name Freq PRN Reason Stop Dose Admin Meropenem 1 gm/ Sodium 100 mls @ 200 mls/hr 03/29/17 18:29 03/29/17 18:35 Chloride IV 03/29/17 18:58 200 mls/hr ONETIME ONE Administration Departure - Departure Time of Disposition: 18:44 Disposition: DC/Tfer to Acute Hospital 02 Condition: Serious Clinical Impression: Leucocytosis Qualifiers: Leukocytosis type: other Qualified Code(s): D72.828 - Other elevated white blood cell count UTI (urinary tract infection) Qualifiers: Urinary tract infection type: site unspecified Hematuria presence: with hematuria Qualified Code(s): N39.0 - Urinary tract infection, site not specified ; R31.9 - Hematuria, unspecified - Discharge Information Forms: Interfacility Transfer EMTALA Care Plan Goals: Discussed the patient's history, examination, lab and x-ray results with Dr. Castaneda (Hospitalist with [facility] in [place]). Dr. Castaneda accepted the patient for continued evaluation and management. The patient will be transported by [facility]. - My Orders Last 24 Hours: My Active Orders 03/29/17 18:29 Meropenem [Merrem] 1 gm Sodium Chloride 0.9% [Normal Saline] 100 ml IV ONETIME - Assessment/Plan Last 24 Hours: My Active Orders 03/29/17 18:29 Meropenem [Merrem] 1 gm Sodium Chloride 0.9% [Normal Saline] 100 ml IV ONETIME
--- NOTE | 2017-03-29 17:06 | CR ---
Clinical history: 82-year-old male with myelofibrosis complaining of shortness of breath and cough wa s reported on recent CT scan chest 15 March 2017 to have "mediastinal lymphadenopathy, dramatic c learing right lung and left lower lobe infiltrates but new left upper lobe infiltrate" when compared [address] exam. Reevaluate please. Interpretation: Abnormal. Increased perihilar pneumonic like consolidation with prominent air bronchograms on the left since co mparable AP chest film 30 January 2017. Normal cardiac silhouette without alveolar edema or dependent effusion. No new lung mass or hilar lymphadenopathy. Right middle lobe atelectasis or postinflammatory fibrosis unchanged.
[2017-03-29] MEDS ORDERED: Meropenem 1 GM in Sodium Chloride 0.9% 100 ML IV ONE (18:29)
== END 2017-03-29 19:00 ==
LOC: DL.ED 15:40
DX: N39.0 Urinary tract infection, site not specified (principal); R31.9 Hematuria, unspecified; D72.828 Other elevated white blood cell count; I48.91 Unspecified atrial fibrillation; I10 Essential (primary) hypertension; M19.90 Unspecified osteoarthritis, unspecified site; F41.9 Anxiety disorder, unspecified; F32.9 Major depressive disorder, single episode, unspecified; Z90.49 Acquired absence of other specified parts of digestive tract; Z79.82 Long term (current) use of aspirin; Z79.899 Other long term (current) drug therapy; Z87.01 Personal history of pneumonia (recurrent)
CPT/HCPCS: 36415; 71020; 80053; 81001; 83605; 83735; 85025; 96365; 99284; J2185; J7050